=== PATIENT | male | born 1940 | race Caucasian/White ===

== ENCOUNTER → 2017-10-11 09:54 | Outpatient (CLI) | payer MEDICARE, SELFPAY ==
[2017-10-11 10:29] LABS: Abs Immature Grans 0.02 k/cumm (0.0-0.09); Absolute Basophil Count 0.04 k/cumm (0.0-0.2); Absolute Eosinophil Count 0.46 k/cumm (0.0-0.7); Absolute Lymphocyte Count 2.81 k/cumm (1.2-3.4); Absolute Monocyte Count 0.81 k/cumm (0.11-0.7); Absolute Neutrophil Count 4.56 k/cumm (1.2-6.7); Basophils % 0.5; Eosinophils % 5.3; HCT 38.7 % (40.0-50.0); HGB 12.8 g/dL (13.5-17.5); Immature Grans % 0.2; Lymphocytes % 32.3; Mean Corp. HGB Concentration 33.1 g/dL (32.0-36.0); Mean Corpuscular Hemoglobin 29.1 pg (27.0-33.0); Mean Platelet Volume 8.4 fL (8.0-11.0); Monocytes % 9.3; Neutrophils % 52.4; Platelet Count 331 x1000/uL (130-400); RBC Distribution Width 14.3 % (11.8-14.1)
[2017-10-11 11:54] LABS: Iron 92 ug/dL (50-175); Total Iron Binding Capacity 306 ug/dL (250-450); Transferrin Sat 30 % (20-55)
[2017-10-11 12:04] LABS: Ferritin 38 ng/mL (8-388)
== END ==
PROVIDERS: PCP Nurse Practitioner Family; Visit Provider Nurse Practitioner Family
DX: D50.9 Iron deficiency anemia, unspecified (principal)
CPT/HCPCS: 36415; 82728; 83540; 83550; 85025

== ENCOUNTER 2018-01-08 02:32 | Outpatient (CLI) | payer MEDICARE, SELFPAY ==
[2018-01-08 09:53] LABS: Abs Immature Grans 0.02 k/cumm (0.0-0.09); Absolute Basophil Count 0.03 k/cumm (0.0-0.2); Absolute Eosinophil Count 0.51 k/cumm (0.0-0.7); Absolute Lymphocyte Count 2.86 k/cumm (1.2-3.4); Absolute Neutrophil Count 3.71 k/cumm (1.2-6.7); Basophils % 0.4; Eosinophils % 6.3; HCT 37.4 % (40.0-50.0); HGB 12.5 g/dL (13.5-17.5); Immature Grans % 0.2; Lymphocytes % 35.2; Mean Corp. HGB Concentration 33.4 g/dL (32.0-36.0); Mean Corpuscular Hemoglobin 29.9 pg (27.0-33.0); Mean Corpuscular Volume 89.5 fL (80-95); Mean Platelet Volume 8.2 fL (8.0-11.0); Monocytes % 12.3; Neutrophils % 45.6; Platelet Count 335 x1000/uL (130-400); RBC 4.18 m/cumm (4.50-6.00); RBC Distribution Width 13.8 % (11.8-14.1); White Blood Cell Count 8.13 k/cumm (4.4-10.8)
== END 2018-01-08 02:52 ==
PROVIDERS: PCP Nurse Practitioner Family; Visit Provider Family Medicine
DX: D50.9 Iron deficiency anemia, unspecified (principal)
CPT/HCPCS: 36415; 85025

== ENCOUNTER 2019-01-02 10:35 | Outpatient (CLI) | payer MEDICARE, SELFPAY ==
[2019-01-02 11:23] LABS: Abs Immature Grans 0.01 k/cumm (0.0-0.09); Absolute Basophil Count 0.03 k/cumm (0.0-0.2); Absolute Eosinophil Count 0.37 k/cumm (0.0-0.7); Absolute Monocyte Count 0.88 k/cumm (0.11-0.7); Absolute Neutrophil Count 3.46 k/cumm (1.2-6.7); Basophils % 0.4; HCT 37.7 % (40.0-50.0); HGB 12.2 g/dL (13.5-17.5); Immature Grans % 0.1; Lymphocytes % 36.2; Mean Corp. HGB Concentration 32.4 g/dL (32.0-36.0); Mean Corpuscular Hemoglobin 29.6 pg (27.0-33.0); Mean Corpuscular Volume 91.5 fL (80-95); Mean Platelet Volume 8.6 fL (8.0-11.0); Monocytes % 11.8; Neutrophils % 46.5; Platelet Count 362 x1000/uL (130-400); RBC 4.12 m/cumm (4.50-6.00); RBC Distribution Width 12.3 % (11.8-14.1); White Blood Cell Count 7.45 k/cumm (4.4-10.8)
[2019-01-02 11:48] LABS: Anion Gap 10.2 mmol/L (3-11); BUN 25 mg/dL (7-18); CO2 26.8 mmol/L (21.0-32.0); CREATININE 1.36 mg/dL (0.70-1.30); Chloride 105 mmol/L (98-107); Estimated GFR 50.81 (mL/min/1.73m2); Glucose 95 mg/dL (70-100); Potassium 4.8 mmol/L (3.5-5.1); Sodium 142 mmol/L (136-145)
== END 2019-01-02 10:55 ==
PROVIDERS: PCP Nurse Practitioner Family; Visit Provider Nurse Practitioner Family
DX: I10 Essential (primary) hypertension (principal); D50.9 Iron deficiency anemia, unspecified; N18.9 Chronic kidney disease, unspecified
CPT/HCPCS: 36415; 80048; 85025

== ENCOUNTER 2019-02-04 09:15 | Outpatient (CLI) | payer MEDICARE, SELFPAY ==
[2019-02-04 10:38] LABS: Anion Gap 12.2 mmol/L (3-11); BUN 36 mg/dL (7-18); CO2 26.8 mmol/L (21.0-32.0); CREATININE 1.88 mg/dL (0.70-1.30); Calcium 9.5 mg/dL (8.5-10.1); Chloride 102 mmol/L (98-107); Estimated GFR 34.97 (mL/min/1.73m2); Glucose 110 mg/dL (74-106); Potassium 4.5 mmol/L (3.5-5.1); Sodium 141 mmol/L (136-145)
== END 2019-02-04 09:35 ==
PROVIDERS: PCP Nurse Practitioner Family; Visit Provider Nurse Practitioner Family
DX: I10 Essential (primary) hypertension (principal)
CPT/HCPCS: 36415; 80048

== ENCOUNTER 2019-07-08 00:55 | Outpatient (CLI) | payer MEDICARE, SELFPAY ==
[2019-07-08 08:49] LABS: BUN 26 mg/dL (7-18); CREATININE 1.54 mg/dL (0.70-1.30); Calcium 8.8 mg/dL (8.5-10.1); Chloride 102 mmol/L (98-107); Estimated GFR 44.02 (mL/min/1.73m2); Glucose 98 mg/dL (74-106); Potassium 4.5 mmol/L (3.5-5.1); Sodium 139 mmol/L (136-145)
== END 2019-07-08 01:15 ==
PROVIDERS: PCP Nurse Practitioner Family; Visit Provider Nurse Practitioner Family
DX: I10 Essential (primary) hypertension (principal); R79.9 Abnormal finding of blood chemistry, unspecified
CPT/HCPCS: 36415; 80048

== ENCOUNTER 2019-08-26 02:11 | Outpatient (CLI) | payer MEDICARE, SELFPAY ==
[2019-08-26 08:47] LABS: Anion Gap 7.8 mmol/L (3-11); BUN 26 mg/dL (7-18); CO2 29.2 mmol/L (21.0-32.0); CREATININE 1.56 mg/dL (0.70-1.30); Calcium 8.9 mg/dL (8.5-10.1); Chloride 103 mmol/L (98-107); Estimated GFR 43.37 (mL/min/1.73m2); Glucose 94 mg/dL (74-106); Potassium 4.9 mmol/L (3.5-5.1); Sodium 140 mmol/L (136-145)
== END 2019-08-26 02:31 ==
PROVIDERS: PCP Nurse Practitioner Family; Visit Provider Nurse Practitioner Family
DX: I10 Essential (primary) hypertension (principal)
CPT/HCPCS: 36415; 80048

== ENCOUNTER 2019-09-12 02:12 | Outpatient (CLI) | payer MEDICARE, SELFPAY ==
[2019-09-12 09:43] LABS: Anion Gap 8.8 mmol/L (3-11); BUN 23 mg/dL (7-18); CO2 30.2 mmol/L (21.0-32.0); CREATININE 1.49 mg/dL (0.70-1.30); Calcium 9.5 mg/dL (8.5-10.1); Chloride 101 mmol/L (98-107); Estimated GFR 45.73 (mL/min/1.73m2); Glucose 92 mg/dL (74-106); Potassium 4.4 mmol/L (3.5-5.1); Sodium 140 mmol/L (136-145)
== END 2019-09-12 02:32 ==
PROVIDERS: PCP Nurse Practitioner Family; Visit Provider Nurse Practitioner Family
DX: I10 Essential (primary) hypertension (principal)
CPT/HCPCS: 36415; 80048

== ENCOUNTER 2020-01-13 03:10 | Outpatient (CLI) | payer MEDICARE, SELFPAY ==
[2020-01-13 09:26] LABS: Abs Immature Grans 0.02 10^3/uL (0.0-0.06); Absolute Basophil Count 0.03 10^3/uL (0.0-0.2); Absolute Eosinophil Count 0.47 10^3/uL (0.0-0.7); Absolute Lymphocyte Count 2.26 10^3/uL (1.2-3.4); Absolute Monocyte Count 0.81 10^3/uL (0.1-0.8); Absolute Neutrophil Count 4.41 10^3/uL (1.2-6.7); Basophils % 0.4; Eosinophils % 5.9; HCT 37.5 % (40.0-50.0); HGB 12.3 g/dL (13.5-17.5); Immature Grans % 0.3; Lymphocytes % 28.3; MCHC 32.8 % (32.0-36.0); MCV 91.5 fL (80-95); MPV 8.7 fL (8.0-11.0); Monocytes % 10.1; Nucleated RBC 0 %; Platelet Count 337 10^3/uL (130-400); RDW 12.1 % (11.8-14.1); RDW-SD 40.4 fL
[2020-01-13 10:23] LABS: ALT 13 U/L (16-63); AST 21 U/L (15-37); Albumin 3.7 g/dL (3.4-5.0); Alkaline Phosphatase 86 U/L (46-116); Anion Gap 7.9 mmol/L (3-11); BUN 27 mg/dL (7-18); Bilirubin, Total 0.7 mg/dL (0.2-1.0); CO2 29.1 mmol/L (21.0-32.0); CREATININE 1.58 mg/dL (0.70-1.30); Calcium 8.7 mg/dL (8.5-10.1); Chloride 101 mmol/L (98-107); Estimated GFR 42.63 (mL/min/1.73m2); Glucose 103 mg/dL (74-106); Potassium 4.1 mmol/L (3.5-5.1); Sodium 138 mmol/L (136-145); Total Protein 7.9 g/dL (6.4-8.2)
== END 2020-01-13 03:30 ==
PROVIDERS: PCP Nurse Practitioner Family; Visit Provider Nurse Practitioner Family
DX: I12.9 Hypertensive chronic kidney disease with stage 1 through stage 4 chronic kidney disease, or unspecified chronic kidney disease (principal); N18.30 Chronic kidney disease, stage 3 unspecified; D50.9 Iron deficiency anemia, unspecified
CPT/HCPCS: 36415; 80053; 85025

== ENCOUNTER 2020-01-23 01:20 | Outpatient (CLI) | payer MEDICARE, SELFPAY ==
--- NOTE | 2020-01-23 06:45 | DI.US_ITS ---
EXAM: US AAA SCREENING CLINICAL HISTORY: Screening for AAA,Z13.6 COMPARISON: No exams were available for comparison FINDINGS: Abdominal Aorta: Proximal: 2.6 x 2.7 cm Mid: 2.3 x 2.5 cm Distal: 2.5 x 2.2 cm Iliac's: Right: 1.5 x 1.7 cm Left: 1.5 x 1.6 cm Mild atherosclerotic disease. IMPRESSION: No evidence of abdominal aortic aneurysm. DATA REPOSITORY:
== END 2020-01-23 01:40 ==
PROVIDERS: PCP Nurse Practitioner Family; Visit Provider Nurse Practitioner Family
DX: Z13.6 Encounter for screening for cardiovascular disorders (principal); I25.10 Atherosclerotic heart disease of native coronary artery without angina pectoris
CPT/HCPCS: 76706

== ENCOUNTER 2020-10-08 14:07 | Outpatient (CLI) | payer MEDICARE, SELFPAY ==
--- NOTE | 2020-10-08 10:30 | DI.RAD_ITS ---
Exam(s) XR KNEE LT 3V AP,LAT,FLETCHER EXAM: XR KNEE LT 3V AP,LAT,FLETCHER CLINICAL HISTORY: gradual worsening BL knee pain ?OA M25.562 PAIN LT KNEE G89.29 CHRONIC PAIN. TECHNIQUE: 2D digital imaging was performed. COMPARISON: CR XR KNEE RT 3V AP,LAT,FLETCHER from 10/08/2020 FINDINGS: There is no evidence of fracture. There is a joint effusion in the suprapatellar bursa. There are a dvanced tricompartmental osteoarthritic degenerative changes. There is [id number] apposition in th e medial and lateral compartments. Also severe degenerative changes in the patellofemoral compartmen t. Vascular calcification is noted.. IMPRESSION: Severe tricompartmental osteoarthritic degenerative changes. DATA REPOSITORY: RADIATION DOSE DELIVERED:
--- NOTE | 2020-10-08 10:30 | DI.RAD_ITS ---
Exam(s) XR KNEE RT 3V AP,LAT,FLETCHER EXAM: XR KNEE RT 3V AP,LAT,FLETCHER CLINICAL HISTORY: gradual worsening BL knee pain ?OA M25.561 PAIN RT KNEE G89.29 CHRONIC PAIN. TECHNIQUE: 2D digital imaging was performed. COMPARISON: No exams were available for comparison FINDINGS: There is no evidence of fracture although there is a joint effusion which is similar in size to the o pposite knee. There is also severe tricompartmental osteoarthritic degenerative change in the right knee. Bone-on- bone apposition and prominent osteophytes all 3 compartments. Vascular calcifications also noted on this side. IMPRESSION: Severe tricompartmental osteoarthritis. Joint effusion. DATA REPOSITORY: RADIATION DOSE DELIVERED:
== END 2020-10-08 14:27 ==
PROVIDERS: PCP Nurse Practitioner Family; Visit Provider Nurse Practitioner Family
DX: M17.0 Bilateral primary osteoarthritis of knee; M25.461 Effusion, right knee
CPT/HCPCS: 73562

== ENCOUNTER → 2020-11-27 09:06 | Outpatient (BNVA) | payer MEDICARE, SELFPAY | PROVIDERS: PCP Nurse Practitioner Family; Referring Provider Nurse Practitioner Family; Visit Provider Student in an Organized Health Care Education/Training Program | DX: M17.0 Bilateral primary osteoarthritis of knee (principal); M25.561 Pain in right knee; M25.562 Pain in left knee; G89.29 Other chronic pain | CPT/HCPCS: 99203 ==

== ENCOUNTER 2021-02-15 03:09 | Outpatient (CLI) | payer MEDICARE, SELFPAY ==
[2021-02-15 11:50] LABS: Abs Immature Grans 0.02 10^3/uL (0.0-0.06); Absolute Basophil Count 0.04 10^3/uL (0.0-0.2); Absolute Lymphocyte Count 2.33 10^3/uL (1.2-3.4); Absolute Monocyte Count 0.95 10^3/uL (0.1-0.8); Basophils % 0.5; Eosinophils % 6.5; HCT 37.3 % (40.0-50.0); Immature Grans % 0.3; Lymphocytes % 30.5; MCHC 32.2 % (32.0-36.0); MCV 90.1 fL (80-95); MPV 8.6 fL (8.0-11.0); Monocytes % 12.4; Neutrophils % 49.8; Nucleated RBC 0 %; Platelet Count 275 10^3/uL (130-400); RBC 4.14 10^6/uL (4.36-5.78); RDW 12.4 % (11.8-14.1); RDW-SD 41.1 fL; WBC 7.64 10^3/uL (4.4-10.8)
[2021-02-15 13:10] LABS: ALT 15 U/L (16-63); AST 21 U/L (15-37); Albumin 3.8 g/dL (3.4-5.0); Alkaline Phosphatase 100 U/L (46-116); Anion Gap 7.7 mmol/L (3-11); BUN 32 mg/dL (7-18); Bilirubin, Total 0.8 mg/dL (0.2-1.0); CO2 31.3 mmol/L (21.0-32.0); CREATININE 1.6 mg/dL (0.70-1.30); Calcium 8.8 mg/dL (8.5-10.1); Chloride 103 mmol/L (98-107); Glucose 90 mg/dL (74-106); Potassium 4.1 mmol/L (3.5-5.1); Sodium 142 mmol/L (136-145); Total Protein 8.1 g/dL (6.4-8.2)
== END 2021-02-15 03:10 | disposition home or self-care (01) ==
LOC: LBO 03:09
PROVIDERS: PCP Nurse Practitioner Family; Visit Provider Nurse Practitioner Family
DX: I10 Essential (primary) hypertension (principal); D50.9 Iron deficiency anemia, unspecified; N18.9 Chronic kidney disease, unspecified
CPT/HCPCS: 36415; 80053; 85025

== ENCOUNTER 2021-08-24 13:26 | Emergency (ER) | payer MEDICARE, SELFPAY ==
[2021-08-24 13:32] VITALS: BP 142/84; PULSE 93; RESP 17; TEMP 36.6; O2SAT 97
--- NOTE | 2021-08-24 13:57 | W.ED.GENAD ---
Discharge Plan Disposition Patient Disposition: HOME Condition: Stable Discharge Details Clinical Impression: Laceration Primary Care Provider: Perri Roca ED Provider: Rosalinda Mcmanus Home Meds and New Rx's Prescriptions: Continued acetaminophen [Tylenol Arthritis Pain] 650 mg tablet extended release 650 mg PO Q8H PRN (Reason: pain) lisinopril 40 mg tablet 40 mg PO DAILY Qty: 90 3RF furosemide 20 mg tablet 20 mg PO DAILY AM Qty: 90 3RF diclofenac sodium 1 % gel 2 g Topical QID PRN (Reason: pain) Qty: 100 3RF Rx Instructions: Apply a thin film (2 GM) to affected areas up to four times daily as needed for pain. multivitamin Tablet 1 tab PO DAILY Qty: 90 Rx Instructions: Takes during winter omeprazole 20 mg capsule,delayed release(DR/EC) 20 mg PO BID Qty: 180 3RF Rx Instructions: Take twice daily on an empty stomach at least 20-30 minutes before meals Discharge Instructions Instructions: Laceration (ED) Additional Instructions: Keep wounds clean and dry Trim Steri-Strips as they siobhan Discussed skin adhesive status underneath the Steri-Strips will likely dissolve on own Do not attempt to remove the Steri-Strip (moistened as you might open the wound Otherwise keep it clean and dry, you do not need to wash it with soap and water daily as it has been cleaned and the wound has been sealed Please return with spreading redness, fever, worsening pain, headache, vomiting Referrals: Perri Roca, [employer]AL[employer] ASSURANCE/R&D LAB TECHNICIAN [Primary Care Provider] - Discharge Data Discharge Date/Time-TO BE ENTERED AT DEPARTURE: 08/24/21 14:06 Medical Decision Making Patient appears well Steri-Strips and Dermabond were applied with good approximation No signs of significant head injury Ambulatory steady gait Return precautions discussed and patient expressed understanding Medical Records Medical records reviewed: Yes I reviewed the patient's medical records. Lab Data Lab results reviewed: Yes I reviewed the patient's lab results. ECG Data Prior ECG tracings: available for review HPI General Date/Time Provider Initiated Documentation: 08/24/21 13:27. HPI Narrative: This 80-year-old gentleman presents with laceration to left forehead which she acquired 30 minutes prior to arrival. He was repairing his garage when a piece of metal kicked back, hitting his head. Denies head injury or loss of consciousness. Denies any dizziness or weakness. Denies history of anticoagulation. Denies any vision change. Denies any additional pain complaints time. Unsure regarding tetanus. Related Data Home Medications Medication Instructions Recorded Confirmed multivitamin 1 tab PO DAILY ##90 09/16/19 08/24/21 diclofenac sodium 1 % topical gel 2 g topical QID PRN pain #100 grams 02/11/21 08/24/21 omeprazole 20 mg capsule,delayed 20 mg PO BID #180 tab-caps 22 08/24/21 release acetaminophen 650 mg 650 mg PO Q8H PRN pain 06/10/21 08/24/21 tablet,extended release (Tylenol Arthritis Pain) furosemide 20 mg tablet 20 mg PO DAILY AM #90 tab-caps 06/10/21 08/24/21 lisinopril 40 mg tablet 40 mg PO DAILY #90 tab-caps 06/10/21 08/24/21 Previous Rx's Medication Instructions Recorded diclofenac sodium 1 % topical gel 2 g topical QID PRN pain #100 grams 02/11/21 omeprazole 20 mg capsule,delayed 20 mg PO BID #180 tab-caps 04/30/21 release furosemide 20 mg tablet 20 mg PO DAILY AM #90 tab-caps 06/10/21 lisinopril 40 mg tablet 40 mg PO DAILY #90 tab-caps 06/10/21 Allergies Allergy/AdvReac Type Severity Reaction Status Date / Time peanut Allergy Intermediate sneezes Verified 08/24/21 13:36 hydrochlorothiazide AdvReac Intermediate Other (See Verified 08/24/21 13:36 Comment) General Stated Complaint: Laceration BERTRAND: 4 Review of Systems All systems reviewed & are unremarkable except as noted in HPI and below PFSH All Active Problems (Updated 08/24/21 @ 14:01 by MARISELA Jane) Laceration (Acute) Mild mitral valve regurgitation (Chronic ~2018) [place]26[place] [facility] [place] mild --> repeat 3-5 years (due: 2022 Osteoarthritis of left knee (Acute) Osteoarthritis of right knee (Acute) Hiatal hernia (Chronic) 05/08/2018 EGD HLD (hyperlipidemia) (Chronic) Unspecified essential hypertension (Chronic 06/27/12) PCEq risk 23%; goal 150/90 Pacemaker (Chronic 08/16/17) Syncope 07/2017 --> 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 Neuropathy (Chronic 08/24/12) R post soulder Iron deficiency anemia (Chronic 11/24/11) neg colonoscopy, EGD Lawler's; C Kourtney 2011; freq blood donations; chronic, nml Epo, likely 2/2 CKD Chronic kidney disease (Chronic 12/29/16) Candidate for statin therapy due to risk of future cardiovascular event (Chronic 01/05/17) 12/2016 labwork: 10-year ASCVD risk = ~33% --> pt declines statins Lawler's esophagus (Chronic ~2011) Most recent EGD 05/08/2018: no endoscopic evidence for Lawler's, consider repeat EGD in 2-3 years for surveillance; discussed with pt 07/2021 & he declines further surveillance EGDs Medical History (Updated 08/24/21 @ 14:01 by MARISELA Jane) Cervical radiculopathy (10/04/12) Syncope (03/28/11) Initially 2011 with negative workup; recurrent 07/2017 and found to have 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 Social History Smoking/Tobacco Use Status: Former Tobacco Use Quit Date: 03/13/1968 Tobacco: How many years used: 2 Smoking risk assessment performed?: Yes Alcohol Intake: former Drug use: Never Substance use type: does not use Adopted: No Caregiver/Support person: No Foster care: No Housing: house Number of Children: 1 Communication Needs: None Education Level: college current occupation: Retired Pets and animals: Yes Pets and animals: cat(s) Sexually active: No Do you think of yourself as: straight/heterosexual Current gender identity: male Other: What is your relationship status?: How often do you talk on the phone with friends or family?: three or more times per week How often do you get together with friends or relatives?: three or more times per week Do you belong to any clubs or organized social groups?: yes Panel score (0-1 are the most socially isolated patients): 2 What type of physical activity do you participate in: walking Duration: 30-45 minutes/day Frequency: 3-4 times per week Edna/Episcopalian: Congregation Special edna needs: No Seatbelt use: always Helmet use: No Drive intox or ride w/intox driver helper: No Water heater temp set <120 deg: Yes Working smoke detector in home: Yes Fire extinguisher in home: Yes Carbon monox detector in home: Yes Firearms in home: Yes Do you feel safe at home: Yes Do you feel safe in your relationship?: Yes Exam Const General: cooperative, comfortable and no acute distress [facility] Head images: 1. 1.5 inch laceration noted No hematoma Eyes Pupils: PERRL Neck Other: no midline tenderness Resp Effort & Inspection: normal respiratory effort Cardio Rate: regular rate Skin Other: laceration Neuro General: patient alert and patient oriented x3 Other: [id number] Course Vital Signs Vital signs: Vital Signs Temperature 36.6 C 08/24/21 13:32 Pulse 93 H 08/24/21 13:32 Respiratory Rate 17 08/24/21 13:32 Blood Pressure 142/84 H 08/24/21 13:32 Pulse Oximetry 97 08/24/21 13:32 Temperature 36.6 C 08/24/21 13:32 Temperature Source Temporal Artery Scan 08/24/21 13:32 Pulse 93 H 08/24/21 13:32 Respiratory Rate 17 08/24/21 13:32 Respiratory Effort Non-Labored 08/24/21 13:34 Blood Pressure 142/84 H 08/24/21 13:32 Blood Pressure Position Sitting 08/24/21 13:32 Pulse Oximetry 97 08/24/21 13:32 Oxygen Delivery Method Room Air 08/24/21 13:32 Oxygen Flow Rate 0 08/24/21 13:32 Pain Level 0 08/24/21 13:34
== END 2021-08-24 14:06 | disposition home or self-care (01) ==
PROVIDERS: Emergency Provider Physician Assistant; PCP Nurse Practitioner Family
DX: S01.81XA Laceration without foreign body of other part of head, initial encounter (principal); W22.8XXA Striking against or struck by other objects, initial encounter
CPT/HCPCS: 90471; 99284; 99283

== ENCOUNTER → 2021-10-15 00:44 | Outpatient (CLI) | payer MEDICARE, SELFPAY ==
--- NOTE | 2021-10-15 09:10 | DI.RAD_ITS ---
Exam(s) XR LUMBAR SPINE COMPLETE EXAM: XR LUMBAR SPINE COMPLETE CLINICAL HISTORY: 8 months of low uncomplicated low back pain,M54.50. TECHNIQUE: 2D digital imaging was performed of the lumbar spine. Five images were obtained. AP, la teral, right oblique, left oblique and L5-S1 spot views were obtained. COMPARISON: CR ABDOMEN FLAT PLATE from 10/29/2009 FINDINGS: BONES: No fracture or destructive lesion. Endplate osteophytes are seen from L2-3 through L5-S1. Dege nerative changes of the facets are seen at L4-5 and L5-S1. DISKS: There is disc space narrowing at all levels of the lumbar spine. Vacuum discs are seen at L3- 4, L4-5 and L5-S1. ALIGNMENT: There is a stable curvature of the lumbar spine. No spondylolysis or spondylolisthesis. SOFT TISSUE: Atherosclerosis is present. IMPRESSION: Moderately severe degenerative changes in the spine. DATA REPOSITORY: RADIATION DOSE DELIVERED:
== END ==
PROVIDERS: PCP Nurse Practitioner Family; Visit Provider Family Medicine
DX: M54.50 Low back pain, unspecified (principal); M47.816 Spondylosis without myelopathy or radiculopathy, lumbar region; M47.817 Spondylosis without myelopathy or radiculopathy, lumbosacral region
CPT/HCPCS: 72110

== ENCOUNTER → 2021-10-25 01:03 | Outpatient (CLI) | payer MEDICARE, SELFPAY ==
--- NOTE | 2021-10-25 06:45 | DI.CT_ITS ---
Exam(s) CT LUMBAR SPINE WO EXAM: CT LUMBAR SPINE WO CLINICAL HISTORY: Low back pain/ stiffness.m54.50. TECHNIQUE: Imaging Protocol: Axial computed tomography images with coronal and sagittal reformatted images were created and reviewed COMPARISON: CR CHEST 2 VIEWS PA,LAT from 07/22/2008 CR XR LUMBAR SPINE COMPLETE from 10/15/2021 FINDINGS: Bones: There are no fractures, listhesis, nor pars defects. Multilevel disc space narrowing chronic- type and degenerative scoliosis convex left. INDIVIDUAL LEVELS: T12-L1:No disc herniation nor canal stenosis. Facet joints unremarkable. No foraminal stenosis. L1-2: Elimination of the disc space on the left side with partial fusion of L1 and L2 vertebral frances s left of center. Also moderate-severe disc space narrowing on the right side of this disc space. N o disc herniation. There is moderate central spinal canal stenosis. Mild foraminal stenosis on the left side. Mild foraminal stenosis on the right side also evident. Mild degenerative changes in the facet joints. L2-3: Advanced disc space narrowing with vacuum phenomena seen throughout the diminished disc space at this level. Broad annular bulging. There is severe central canal stenosis at this level due to c ombination short AP dimensions the pedicles, broad annular bulging, and moderate degenerative changes in both facet joints. L3-4: Advanced disc space narrowing also evident at this level vacuum phenomenon. Broad annular bul ging. Severe central spinal canal stenosis evident this level due to annular bulging, short AP dimen sions the pedicles and degenerative facet joint changes, right more so than left. Moderate degenerat rani narrowing of exiting neural foramina bilaterally. L4-5: Advanced disc space narrowing also evident at this level with vacuum phenomenon throughout the disc space. Severe spinal canal stenosis evident due to annular bulging, short AP dimensions the pe dicles and degenerative facet joint arthropathy. There is significant foraminal stenosis bilaterally at this level, mostly related to the height loss of the disc space and facet arthropathy L5-S1: Advanced disc space narrowing and vacuum phenomenon. Also severe spinal canal stenosis at th is level for similar reasons as is spaces above. Also significant bilateral foraminal stenosis mostl y related to posterior bony ridging and vertical height loss with impingement of the exiting nerve ro ots subjacent to the overlying L5 pedicles. The visualized sacroiliac joints and sacrum appear unremarkable. PARASPINAL SOFT TISSUES: Sigmoid diverticuli noted. IMPRESSION: 1. Severe advanced multilevel disc height loss. 2. Multilevel severe central spinal canal stenosis at each level in the lumbosacral spine. There is also multilevel bilateral foraminal stenosis. 3. Multilevel facet arthropathy. RADIATION DOSE DELIVERED: 583.84mGy.cm Total DLP DATA REPOSITORY: All CT scans at this facility are submitted to the National Radiology Data Registry (NRDR) Dose Index Registry (DIR) with the [employer] (ACR). RADIATION OPTIMIZATION: All CT scans at this facility use at least one of these dose optimization te chniques: automated exposure control; mA and/or kV adjustment per patient size (includes targeted exa ms where dose is matched to clinical indication); or iterative reconstruction.
== END ==
PROVIDERS: PCP Nurse Practitioner Family; Visit Provider Family Medicine
DX: M47.816 Spondylosis without myelopathy or radiculopathy, lumbar region (principal); M47.817 Spondylosis without myelopathy or radiculopathy, lumbosacral region
CPT/HCPCS: 72131

== ENCOUNTER 2022-01-13 07:42 | Outpatient (CLI) | payer MEDICARE, SELFPAY ==
[2022-01-13 07:53] VITALS: BP 120/70; PULSE 80; RESP 20; TEMP 36.6; O2SAT 97
--- NOTE | 2022-01-13 08:36 | DI.RAD_ITS ---
Exam(s) XR PAIN CLINIC LUMBAR SP 2V EXAM: XR PAIN CLINIC LUMBAR SP 2V CLINICAL HISTORY: DX: lumbar radiculopathy TECHNIQUE: 2D and realtime digital imaging was performed. COMPARISON: No exams were available for comparison FINDINGS: C-arm fluoroscopy was utilized by Dr. Pelletier. Please see the procedure note. Hard copy shows epidural injection at what appears to be the L5-S1 level. IMPRESSION: RADIATION DOSE DELIVERED: fortunato Waters=12.12 mGy
--- NOTE | 2022-01-13 08:37 | PDOC.PAIN_ITS ---
Date of service: 01/13/22 Time of Service: 08:37 Pain Clinic Procedure Note Procedure Note Procedure Note: Lumbar Epidural Steroid Injection Procedure Note COMMENTS:I previously evaluated him in the office. Pre-procedure pain VAS was 6/10. Dx: Lumbosacral radiculopathy Partha Mantilla has been referred to the [facility] for lumbar epidural steroid injection. The patient was greeted by the nurse who verified patients name and . Patient was then taken to the fluoroscopy suite. The patient was interviewed and the medial record reviewed. There were no medical, pharmacologic, radiographic, or other structural contraindications to attempting fluoroscopically guided lumbar epidural steroid injection. Risks and expected side effects as well as potential benefits of the procedure were reviewed and voiced concerns expressed. The patient consent form was signed and witnessed. Standard patient time-out procedure was performed. The patient was placed in the prone position on the fluoroscopy table and automa grant blood pressure cuff and pulse oximeter applied. The skin entry point for entering/approaching the epidural space by a L5-S1 and marked. Following thorough chlorhexadine preparation of the skin and draping and 1% lidocaine infiltration of the skin entry point and subcutaneous tissues, a 18 gauge Touhy needle was placed under fluoroscopic guidance and with loss of resistance technique into the epidural space. Needle tip placement and depth were aided and confirmed by fluoroscopy. There was no paresthesia or return of blood or CSF through the needle. 1 cc's of Omnipaque 240 was injected with clear epidural spread confirmed with fluoroscopy. 80mg depomedrol was injected. There was not any unusual discomfort expressed by Partha Mantilla. Patient's vital signs were stable throughout the procedure and were as recorded in nursing records. Follow up plans and appointments were discussed with patient. Post procedure instruction was given as documented in nursing records and having met discharge criteria and was discharged from the [facility]. COMMENTS: If this procedure is helpful, it can be completed up to 3 times per 12 months. If this procedure is completed again, I would encourage utilizing the Caudal approach as his interlaminar spaces are very tight. Post-procedure pain VAS 3/10. Sanya Pelletier DO, MPH [facility]
[2022-01-13] MEDS: methylPREDNISolone ACETATE 80 MG/ML VIAL IJ (08:38)
[2022-01-13] MEDS: Omnipaque 240 MG/ML 50 ML BTL IJ (08:38)
[2022-01-13 08:48] VITALS: BP 122/71; PULSE 81; RESP 17; O2SAT 98
== END 2022-01-13 07:43 | disposition home or self-care (01) ==
PROVIDERS: PCP Nurse Practitioner Family; Visit Provider Preventive Medicine Occupational Medicine
DX: M54.17 Radiculopathy, lumbosacral region (principal); M54.50 Low back pain, unspecified
CPT/HCPCS: 62323; 72100; J1040; Q9967

== ENCOUNTER 2022-01-28 01:23 | Outpatient (CLI) | payer MEDICARE, SELFPAY ==
[2022-01-28 09:12] LABS: Abs Immature Grans 0.03 10^3/uL (0.0-0.06); Absolute Basophil Count 0.04 10^3/uL (0.0-0.2); Absolute Lymphocyte Count 2.38 10^3/uL (1.2-3.4); Absolute Monocyte Count 1.01 10^3/uL (0.1-0.8); Absolute Neutrophil Count 4.28 10^3/uL (1.2-6.7); Basophils % 0.5; Eosinophils % 2.5; HCT 37.1 % (40.0-50.0); HGB 11.9 g/dL (13.5-17.5); Immature Grans % 0.4; MCH 28.6 pg (27.0-33.0); MCHC 32.1 % (32.0-36.0); MCV 89 fL (80-95); MPV 8.3 fL (8.0-11.0); Monocytes % 12.7; Neutrophils % 53.9; Platelet Count 286 10^3/uL (130-400); RBC 4.16 10^6/uL (4.36-5.78); RDW-SD 42.8 fL; WBC 7.94 10^3/uL (4.4-10.8)
[2022-01-28 09:47] LABS: ALT 12 U/L (16-63); AST 17 U/L (15-37); Alkaline Phosphatase 96 U/L (46-116); Anion Gap 7.8 mmol/L (3-11); BUN 69 mg/dL (7-18); CO2 29.2 mmol/L (21.0-32.0); CREATININE 2.8 mg/dL (0.70-1.30); Calcium 9.6 mg/dL (8.5-10.1); Chloride 99 mmol/L (98-107); Estimated GFR 22.12 (mL/min/1.73m2); Glucose 105 mg/dL (74-106); Potassium 5.4 mmol/L (3.5-5.1); Sodium 136 mmol/L (136-145); Total Protein 8.6 g/dL (6.4-8.2)
== END 2022-01-28 01:24 | disposition home or self-care (01) ==
LOC: LBO 01:23
PROVIDERS: PCP Nurse Practitioner Family; Visit Provider Nurse Practitioner Family
DX: D50.9 Iron deficiency anemia, unspecified (principal); N18.30 Chronic kidney disease, stage 3 unspecified; Z13.1 Encounter for screening for diabetes mellitus
CPT/HCPCS: 36415; 80053; 85025

== ENCOUNTER 2022-02-02 09:06 | Outpatient (CLI) | payer MEDICARE, SELFPAY ==
[2022-02-02 08:56] LABS: Abs Immature Grans 0.02 10^3/uL (0.0-0.06); Absolute Basophil Count 0.03 10^3/uL (0.0-0.2); Absolute Eosinophil Count 0.24 10^3/uL (0.0-0.7); Absolute Lymphocyte Count 2.16 10^3/uL (1.2-3.4); Absolute Monocyte Count 0.91 10^3/uL (0.1-0.8); Absolute Neutrophil Count 4.97 10^3/uL (1.2-6.7); Basophils % 0.4; Eosinophils % 2.9; HCT 36.3 % (40.0-50.0); Immature Grans % 0.2; Lymphocytes % 25.9; MCH 29.1 pg (27.0-33.0); MCHC 33.1 % (32.0-36.0); MCV 88 fL (80-95); MPV 8.2 fL (8.0-11.0); Monocytes % 10.9; Neutrophils % 59.7; Platelet Count 262 10^3/uL (130-400); RBC 4.12 10^6/uL (4.36-5.78); RDW 13.1 % (11.8-14.1); RDW-SD 42.5 fL; WBC 8.33 10^3/uL (4.4-10.8)
[2022-02-02 09:14] LABS: ALT 12 U/L (16-63); AST 15 U/L (15-37); Alkaline Phosphatase 94 U/L (46-116); Anion Gap 8.1 mmol/L (3-11); Bilirubin, Total 0.9 mg/dL (0.2-1.0); CO2 26.9 mmol/L (21.0-32.0); CREATININE 3.4 mg/dL (0.70-1.30); Calcium 9.4 mg/dL (8.5-10.1); Chloride 98 mmol/L (98-107); Estimated GFR 17.52 (mL/min/1.73m2); Glucose 90 mg/dL (74-106); Potassium 5.9 mmol/L (3.5-5.1); Sodium 133 mmol/L (136-145); Total Protein 8.6 g/dL (6.4-8.2)
[2022-02-02 09:18] LABS: BUN 101 mg/dL (7-18)
[2022-02-02 09:54] LABS: Bilirubin Negative (Negative); Blood Negative (Negative); Clarity Sl Cloudy (Clear); Glucose Negative (Negative); Ketones Negative (Negative); Leukocyte Esterase Large (Negative); Nitrite Negative (Negative); Urobilinogen 0.2 EU/dL (Up TO 0.2)
[2022-02-02 10:09] LABS: WBC >50 HPF (0-5)
[2022-02-02 10:10] LABS: Bacteria Moderate HPF (Negative); C & S Indicated? Yes
== END 2022-02-02 09:07 | disposition home or self-care (01) ==
LOC: LBO 09:07
PROVIDERS: PCP Nurse Practitioner Family; Visit Provider Nurse Practitioner Family
DX: E87.5 Hyperkalemia (principal); N18.32 Chronic kidney disease, stage 3b; R82.998 Other abnormal findings in urine
CPT/HCPCS: 36415; 80053; 87077; 81003; 81015; 85025; 87086; 87186

== ENCOUNTER 2022-02-02 12:07 | Emergency (ER) | payer MEDICARE, SELFPAY ==
[2022-02-02 12:22] VITALS: BP 110/61; PULSE 98; RESP 16; TEMP 36.9; O2SAT 94
--- NOTE | 2022-02-02 12:30 | RT.EKG_ITS ---
APPROVED REPORT Exam: Resting ECG Reason for Exam: hyperkalemia Patient Location: E HR:75 bpm ECG Measurements Heart Rate 75 AXIS NH 155 P 39 QRSd 83 QRS 48 QT 333 T 29 QTc 371 Conclusion Sinus rhythm...normal P axis, V-rate 60- 99 sinus rhtythm, normal axis, normal intervals, non ischemic
[2022-02-02 13:34] LABS: Abs Immature Grans 0.03 10^3/uL (0.0-0.06); Absolute Basophil Count 0.03 10^3/uL (0.0-0.2); Absolute Eosinophil Count 0.19 10^3/uL (0.0-0.7); Absolute Lymphocyte Count 2.33 10^3/uL (1.2-3.4); Absolute Monocyte Count 0.85 10^3/uL (0.1-0.8); Absolute Neutrophil Count 6.52 10^3/uL (1.2-6.7); Basophils % 0.3; Eosinophils % 1.9; HCT 36.5 % (40.0-50.0); HGB 12.1 g/dL (13.5-17.5); Immature Grans % 0.3; Lymphocytes % 23.4; MCH 29.2 pg (27.0-33.0); MCHC 33.2 % (32.0-36.0); MCV 88 fL (80-95); MPV 8.7 fL (8.0-11.0); Monocytes % 8.5; Neutrophils % 65.6; Platelet Count 282 10^3/uL (130-400); RBC 4.15 10^6/uL (4.36-5.78); RDW 13.1 % (11.8-14.1); RDW-SD 42.5 fL; WBC 9.95 10^3/uL (4.4-10.8)
[2022-02-02 13:48] LABS: ALT 13 U/L (16-63); AST 17 U/L (15-37); Albumin 4.2 g/dL (3.4-5.0); Alkaline Phosphatase 100 U/L (46-116); CREATININE 3.4 mg/dL (0.70-1.30); Calcium 9.5 mg/dL (8.5-10.1); Chloride 98 mmol/L (98-107); Estimated GFR 17.52 (mL/min/1.73m2); Glucose 99 mg/dL (74-106); Potassium 5.6 mmol/L (3.5-5.1); Sodium 130 mmol/L (136-145); Total Protein 9.2 g/dL (6.4-8.2)
[2022-02-02 13:51] LABS: BUN 99 mg/dL (7-18)
--- NOTE | 2022-02-02 14:08 | W.ED.GENAD ---
Discharge Plan Disposition Patient Disposition: Home Condition: Stable Discharge Details Chief Complaint: GenMedical Clinical Impression: Hyperkalemia, CKD (chronic kidney disease) Primary Care Provider: Perri Roca ED Provider: Rell Bennett Home Meds and New Rx's Prescriptions: No Action acetaminophen [Tylenol Arthritis Pain] 650 mg tablet extended release 650 mg PO Q8H PRN (Reason: pain) lisinopril 40 mg tablet 40 mg PO DAILY Qty: 90 3RF Hold Instructions: Home Medication placed on hold at Doctor's office furosemide 20 mg tablet 20 mg PO DAILY AM Qty: 90 3RF diclofenac sodium 1 % gel 2 g Topical QID PRN (Reason: pain) Qty: 100 3RF Rx Instructions: Apply a thin film (2 GM) to affected areas up to four times daily as needed for pain. multivitamin Tablet 1 tab PO DAILY Qty: 90 Rx Instructions: Takes during winter omeprazole 20 mg capsule,delayed release(DR/EC) 20 mg PO BID Qty: 180 3RF Rx Instructions: Take twice daily on an empty stomach at least 20-30 minutes before meals Discharge Instructions Instructions: Chronic Kidney Disease (ED), Chronic Kidney Disease Diet (DC), Hyperkalemia (ED) Additional Instructions: Please follow-up with nephrology and primary care. Please return to the emergency department for any abnormal symptoms. Medical Decision Making 81-year-old male referred in by primary care for evaluation of hyperkalemia in the setting of worsening CKD. Longstanding CKD has been followed by primary team. Patient found to be hyperkalemic to 5.9 today. EKG normal sinus rhythm normal intervals normal P waves and T waves, no evidence of fluid overload no chest pain or shortness of breath. No presyncope nausea or systemic signs of illness. Repeat labs showing potassium downtrending from 5.9-5.6 likely chronically compensating. Given hemodynamically stable asymptomatic patient without evidence of fluid overload state no indication for dialysis or medical treatment at this time. However patient will be urgently referred to nephrology for close follow-up, given strict return precautions for any abnormal symptomatology. Patient and family comfortable with plan. Sign Out No HPI General Date/Time Provider Initiated Documentation: 02/02/22 12:39. HPI Narrative: 81-year-old male history of CKD referred in by primary care for evaluation of hyperkalemia in the setting of worsening kidney function. Patient denies chest pain shortness of breath peripheral edema or decreased urine output. Related Data Home Medications Medication Instructions Recorded Confirmed multivitamin 1 tab PO DAILY ##90 09/16/19 02/02/22 diclofenac sodium 1 % topical gel 2 g topical QID PRN pain #100 grams 02/11/21 02/02/22 omeprazole 20 mg capsule,delayed 20 mg PO BID #180 tab-caps 04/30/21 02/02/22 release acetaminophen 650 mg 650 mg PO Q8H PRN pain 06/10/21 02/02/22 tablet,extended release (Tylenol Arthritis Pain) furosemide 20 mg tablet 20 mg PO DAILY AM #90 tab-caps 06/10/21 02/02/22 lisinopril 40 mg tablet 40 mg PO DAILY #90 tab-caps 06/10/21 01/13/22 Previous Rx's Medication Instructions Recorded diclofenac sodium 1 % topical gel 2 g topical QID PRN pain #100 grams 02/11/21 omeprazole 20 mg capsule,delayed 20 mg PO BID #180 tab-caps 04/30/21 release furosemide 20 mg tablet 20 mg PO DAILY AM #90 tab-caps 06/10/21 lisinopril 40 mg tablet 40 mg PO DAILY #90 tab-caps 06/10/21 Allergies Allergy/AdvReac Type Severity Reaction Status Date / Time peanut Allergy Intermediate sneezes Verified 01/13/22 07:49 hydrochlorothiazide AdvReac Intermediate Other (See Verified 01/13/22 07:49 Comment) General Stated Complaint: GenMedical BERTRAND: 3 Review of Systems Narrative: Review of Systems Constitutional: negative Eyes: negative ENT: negative Cardiovascular: negative Respiratory: negative Gastrointestinal: negative : negative Musculoskeletal: negative Skin: negative Neurologic: negative Psych: negative PFSH All Active Problems (Updated 02/02/22 @ 14:13 by Rell Bennett MD) Hyperkalemia (Acute) CKD (chronic kidney disease) (Chronic) Hyperkalemia (Acute) Degenerative disc disease, lumbar (Acute) Low back pain (Acute) Mild mitral valve regurgitation (Chronic ~2018) 07/26/2017 [facility] echo: mild --> repeat 3-5 years (due: 2022 Osteoarthritis of left knee (Acute) Osteoarthritis of right knee (Acute) Hiatal hernia (Chronic) 05/08/2018 EGD HLD (hyperlipidemia) (Chronic) Unspecified essential hypertension (Chronic 06/27/12) PCEq risk 23%; goal 150/90 Pacemaker (Chronic 08/16/17) Syncope 07/2017 --> 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 Neuropathy (Chronic 08/24/12) R post soulder Iron deficiency anemia (Chronic 11/24/11) neg colonoscopy, EGD Lawler's; C Kourtney 2011; freq blood donations; chronic, nml Epo, likely 2/2 CKD Chronic kidney disease (Chronic 12/29/16) Candidate for statin therapy due to risk of future cardiovascular event (Chronic 01/05/17) 12/2016 labwork: 10-year ASCVD risk = ~33% --> pt declines statins Lawler's esophagus (Chronic ~2011) Most recent EGD 05/08/2018: no endoscopic evidence for Lawler's, consider repeat EGD in 2-3 years for surveillance; discussed with pt 07/2021 & he declines further surveillance EGDs Medical History Cervical radiculopathy (10/04/12) Syncope (03/28/11) Initially 2011 with negative workup; recurrent 07/2017 and found to have sinus pause --> PPM placed 07/26/2017 Surgical History Endoscopy (05/08/14) Upper GI Dr Graham-[facility] 11/10/15 EGD W/ bx Pacemaker (07/26/17) [facility] Family History Mother Parkinson disease Father Myocardial infarction Heart disease Sister Stroke Cancer Stomach or pancreatic? Social History Smoking/Tobacco Use Status: Former Tobacco Use Quit Date: 03/13/1968 Tobacco: How many years used: 2 Smoking risk assessment performed?: Yes Alcohol Intake: former Drug use: Never Substance use type: does not use Adopted: No Caregiver/Support person: No Foster care: No Housing: house Number of Children: 1 Communication Needs: None Education Level: college current occupation: Retired Pets and animals: Yes Pets and animals: cat(s) Sexually active: No Do you think of yourself as: straight/heterosexual Current gender identity: male Other: What is your relationship status?: How often do you talk on the phone with friends or family?: three or more times per week How often do you get together with friends or relatives?: three or more times per week Do you belong to any clubs or organized social groups?: yes Panel score (0-1 are the most socially isolated patients): 2 What type of physical activity do you participate in: walking Duration: 30-45 minutes/day Frequency: 3-4 times per week Edna/Gnosticism: Episcopalian Special edna needs: No Seatbelt use: always Helmet use: No Drive intox or ride w/intox 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 Exam Narrative Exam Narrative: Physical Examination General: alert, awake, cooperative, resting comfortably, no acute distress HEENT: normocephalic, atraumatic; PERRL, EOM intact, conjunctiva normal; no nasal discharge; moist mucous membranes, oral and pharyngeal mucosa normal, tolerating secretions Neck: supple, trachea midline; full ROM Chest: normal to inspection Respiratory: normal respiratory effort, speaking in full sentences, clear to auscultation, no wheezing, rales or rhonchi Cardiac: regular rate, regular rhythm, S1S2 intact, no murmurs rubs or gallops GI: abdomen soft, non-tender, non-distended; no palpable mass or hepatosplenomegaly Skin: no lesions, rashes or trauma appreciated Neuro: AAOx3, normal speech, moving all extremities Extremities: No significant peripheral edema, patient endorses that he has chronic right lower extremity mild edema for the last 20 years Psych: Appropriate mood and affect Course Vital Signs Vital signs: Vital Signs Temperature 36.9 C 02/02/22 12:22 Pulse 98 H 02/02/22 12:22 Respiratory Rate 16 02/02/22 12:22 Blood Pressure 110/61 02/02/22 12:22 Pulse Oximetry 94 02/02/22 12:22 Temperature 36.9 C 02/02/22 12:22 Temperature Source Temporal Artery Scan 02/02/22 12:22 Pulse 98 H 02/02/22 12:22 Respiratory Rate 16 02/02/22 12:22 Respiratory Effort Non-Labored 02/02/22 12:58 Respiratory Depth Normal 02/02/22 12:58 Respiratory Pattern Normal 02/02/22 12:58 Blood Pressure 110/61 02/02/22 12:22 Blood Pressure Position Sitting 02/02/22 12:22 Pulse Oximetry 94 02/02/22 12:22 Oxygen Delivery Method Room Air 02/02/22 12:22 Oxygen Flow Rate 0 02/02/22 12:22 Pain Level 0 02/02/22 12:22 Lab/Test Results Lab/Test Results: Laboratory Tests Range/Units 02/02/22 02/02/22 13:25 13:25 WBC (4.4-10.8) 10^3/uL 9.95 RBC (4.36-5.78) 10^6/uL 4.15 L Hgb (13.5-17.5) g/dL 12.1 L Hct (40.0-50.0) % 36.5 L MCV (80-95) fL 88 MCH (27.0-33.0) pg 29.2 MCHC (32.0-36.0) % 33.2 RDW (11.8-14.1) % 13.1 Plt Count (130-400) 10^3/uL 282 MPV (8.0-11.0) fL 8.7 Immature Gran % 0.3 Neutrophils % 65.6 Lymphocytes % 23.4 Monocytes % 8.5 Eosinophils % 1.9 Basophils % 0.3 Nucleated RBC % (0.0-0.3) % 0.0 Absolute Neutrophils (1.2-6.7) 10^3/uL 6.52 Absolute Lymphocytes (1.2-3.4) 10^3/uL 2.33 Absolute Monocytes (0.1-0.8) 10^3/uL 0.85 H Absolute Eosinophils (0.0-0.7) 10^3/uL 0.19 Absolute Basophils (0.0-0.2) 10^3/uL 0.03 Sodium (136-145) mmol/L 130 L Potassium (3.5-5.1) mmol/L 5.6 H Chloride (98-107) mmol/L 98 Carbon Dioxide (21.0-32.0) mmol/L 25.0 Anion Gap (3-11) mmol/L 7.0 BUN (7-18) mg/dL 99 H* Creatinine (0.70-1.30) mg/dL 3.4 H Est GFR (CKD-EPI 2020) (mL/min/1.73m2) 17.52 Glucose (74-106) mg/dL 99 Calcium (8.5-10.1) mg/dL 9.5 Total Bilirubin (0.2-1.0) mg/dL 1.0 AST (15-37) U/L 17 ALT (16-63) U/L 13 L Alkaline Phosphatase (46-116) U/L 100 Total Protein (6.4-8.2) g/dL 9.2 H Albumin (3.4-5.0) g/dL 4.2
[2022-02-02 14:29] VITALS: BP 112/60; PULSE 80; RESP 16; TEMP 36.7; O2SAT 98
--- NOTE | 2022-02-03 09:26 | NUR.NOTE ---
Nursing Note: REFERRAL TO FOR [facility] [place]
== END 2022-02-02 14:33 | disposition home or self-care (01) ==
PROVIDERS: Emergency Provider Emergency Medicine; PCP Nurse Practitioner Family
DX: E87.5 Hyperkalemia (principal); N18.9 Chronic kidney disease, unspecified
CPT/HCPCS: 36415; 80053; 87077; 93005; 99283; 81003; 81015; 85025; 87086; 87186; 93010

== ENCOUNTER 2022-02-18 09:37 | Outpatient (REF) | payer MEDICARE, SELFPAY | END 2022-02-18 09:38 | disposition home or self-care (01) | LOC: LBN 09:37 | PROVIDERS: PCP Nurse Practitioner Family; Visit Provider Nurse Practitioner Family | DX: N39.0 Urinary tract infection, site not specified (principal) | CPT/HCPCS: 87077; 87086; 87186 ==

== ENCOUNTER 2022-02-18 12:01 | Outpatient (CLI) | payer MEDICARE, SELFPAY ==
[2022-02-18 10:03] LABS: Anion Gap 10.7 mmol/L (3-11); BUN 63 mg/dL (7-18); CO2 26.3 mmol/L (21.0-32.0); CREATININE 2.7 mg/dL (0.70-1.30); Calcium 9.1 mg/dL (8.5-10.1); Chloride 102 mmol/L (98-107); Glucose 107 mg/dL (74-106); Potassium 4.4 mmol/L (3.5-5.1); Sodium 139 mmol/L (136-145)
== END 2022-02-18 12:02 | disposition home or self-care (01) ==
LOC: LBO 12:02
PROVIDERS: PCP Nurse Practitioner Family; Visit Provider Nurse Practitioner Family
DX: R32 Unspecified urinary incontinence (principal); R82.71 Bacteriuria; E87.5 Hyperkalemia; N17.9 Acute kidney failure, unspecified
CPT/HCPCS: 36415; 80048; 84153

== ENCOUNTER 2022-02-25 12:10 | Outpatient (REF) | payer MEDICARE, SELFPAY ==
[2022-02-25 14:57] LABS: Anion Gap 8.6 mmol/L (3-11); BUN 38 mg/dL (7-18); CO2 28.4 mmol/L (21.0-32.0); CREATININE 2.1 mg/dL (0.70-1.30); Calcium 9.4 mg/dL (8.5-10.1); Chloride 101 mmol/L (98-107); Estimated GFR 31.23 (mL/min/1.73m2); Glucose 105 mg/dL (74-106); Potassium 4.7 mmol/L (3.5-5.1); Sodium 138 mmol/L (136-145)
== END 2022-02-25 12:11 | disposition home or self-care (01) ==
LOC: LBN 12:10
PROVIDERS: PCP Nurse Practitioner Family; Visit Provider Nurse Practitioner Family
DX: N18.9 Chronic kidney disease, unspecified (principal); N17.9 Acute kidney failure, unspecified; N39.0 Urinary tract infection, site not specified
CPT/HCPCS: 80048; 87086

== ENCOUNTER 2022-03-22 00:41 | Outpatient (CLI) | payer MEDICARE, SELFPAY ==
--- NOTE | 2022-03-22 06:30 | DI.US_ITS ---
Exam(s) US RENAL EXAM: US RENAL CLINICAL HISTORY: ?cause for TASHI/UTI,chronic kidney disease,n18.9,n17.9,n39.0. TECHNIQUE: Huntley scale, color and spectral Doppler were used. COMPARISON: CT CHEST WITH CONTRAST from 07/17/2008 FINDINGS: Renal size in cm: Right: 10.1. Left: 9.5. Echogenicity: Normal. Hydronephrosis: No. Cyst or mass: There is a 0.7 x 0.9 x 0.8 cm simple cyst in the right kidney. No follow-up is recomme nded. Nephrolithiasis: No. Other findings: None. Bladder:Normal. Ureteral jets: Right: Visualized and unremarkable. Left: Visualized and unremarkable. Prevoid vol:117 cc Postvoid vol:58 cc Prostate: 32 cc Renal color flow: Symmetric and within normal limits. IMPRESSION: 1. Unremarkable kidneys except for a 0.9 cm simple right renal cyst. No follow-up for the cyst is re commended. 2. Small postvoid urinary bladder volume. 3. Upper limits of normal to mildly enlarged prostatic volume. DATA REPOSITORY:
== END 2022-03-22 01:01 ==
PROVIDERS: PCP Nurse Practitioner Family; Visit Provider Nurse Practitioner Family
DX: N17.9 Acute kidney failure, unspecified (principal); N18.9 Chronic kidney disease, unspecified; N39.0 Urinary tract infection, site not specified
CPT/HCPCS: 76770

== ENCOUNTER 2022-04-13 04:16 | Outpatient (CLI) | payer MEDICARE, SELFPAY ==
[2022-04-13 09:08] LABS: Anion Gap 9.1 mmol/L (3-11); BUN 19 mg/dL (7-18); CO2 29.9 mmol/L (21.0-32.0); CREATININE 1.6 mg/dL (0.70-1.30); Calcium 9.4 mg/dL (8.5-10.1); Chloride 102 mmol/L (98-107); Estimated GFR 43.29 (mL/min/1.73m2); Glucose 117 mg/dL (74-106); Potassium 3.8 mmol/L (3.5-5.1); Sodium 141 mmol/L (136-145)
== END 2022-04-13 04:17 | disposition home or self-care (01) ==
LOC: LBO 04:16
PROVIDERS: Absent Provider Nurse Practitioner Family; PCP Nurse Practitioner Family; Referring Provider Nurse Practitioner Family; Visit Provider Nurse Practitioner Family
DX: N17.9 Acute kidney failure, unspecified (principal); N18.32 Chronic kidney disease, stage 3b
CPT/HCPCS: 36415; 80048

== ENCOUNTER 2022-05-12 08:28 | Outpatient (CLI) | payer MEDICARE, SELFPAY ==
[2022-05-12 08:44] VITALS: BP 145/80; PULSE 71; RESP 20; TEMP 36.5; O2SAT 98
--- NOTE | 2022-05-12 09:31 | DI.RAD_ITS ---
Exam(s) XR PAIN CLINIC LUMBAR SP 2V EXAM: XR PAIN CLINIC LUMBAR SP 2V CLINICAL HISTORY: Dx: Lumbar Radiculopathy TECHNIQUE: 2D and realtime digital imaging was performed. CONTRAST MATERIAL: Refer to procedure report. COMPARISON: No exams were available for comparison FINDINGS: Fluoroscopy was provided for Dr. Pelletier during the performance of a lumbar epidural steroid injection. Please refer to the procedure report for complete details. Ka,r=6.6 mGy IMPRESSION:
[2022-05-12] MEDS: methylPREDNISolone ACETATE 80 MG/ML VIAL IJ ×2 (09:39→09:44)
[2022-05-12] MEDS: Omnipaque 240 MG/ML 50 ML BTL IJ ×2 (09:39→09:44)
[2022-05-12 09:45] VITALS: BP 113/65; PULSE 80; RESP 19; O2SAT 99
--- NOTE | 2022-05-12 09:48 | PDOC.PAIN_ITS ---
Date of service: 05/12/22 Time of Service: 09:51 Pain Clinic Procedure Note Procedure Note Procedure Note: Lumbar Epidural Steroid Injection Procedure Note COMMENTS:He had >4 months of >50% improvement in pain and function with his last LESI on 01/13/2022. Pain is no longer in his legs. He is doing his home exercises. Dx: Lumbosacral radiculopathy Pre-procedure pain VAS was 4/10. Partha Mantilla has been referred to the [facility] Management [facility] for lumbar epidural steroid injection. The patient was greeted by the nurse who verified patients name and . Patient was then taken to the fluoroscopy suite. The patient was interviewed and the medial record reviewed. There were no medical, pharmacologic, radiographic, or other structural contraindications to attempting fluoroscopically guided lumbar epidural steroid injection. Risks and expected side effects as well as potential benefits of the procedure were reviewed and voiced concerns expressed. The patient consent form was signed and witnessed. Standard patient time-out procedure was performed. The patient was placed in the prone position on the fluoroscopy table and automated blood pressure cuff and pulse oximeter applied. The skin entry point for entering/approaching the epidural space at the L5-S1 and marked. Following thorough chlorhexadine preparation of the skin and draping and 1% lidocaine infiltration of the skin entry point and subcutaneous tissues, a 18 gauge Touhy needle was placed under fluoroscopic guidance and with loss of resistance technique into the epidural space. Needle tip placement and depth were aided and confirmed by fluoroscopy. There was no paresthesia or return of blood or CSF through the needle. 1 cc's of Omnipaque 240 was injected with clear epidural spread confirmed with fluoroscopy. 80mg depomedrol was injected. There was not any unusual discomfort expressed by Partha Mantilla. Patient's vital signs were stable throughout the procedure and were as recorded in nursing records. Follow up plans and appointments were discussed with patient. Post procedure instruction was given as documented in nursing records and having met discharge criteria and was discharged from the Pain Management Center. COMMENTS: If this procedure is helpful, it can be completed up to 3 times per 12 months. Post-procedure pain level was 1/10. Sanya Pelletier DO, MPH [facility] [place]-Pain Management [facility]
== END 2022-05-12 08:29 | disposition home or self-care (01) ==
PROVIDERS: PCP Nurse Practitioner Family; Visit Provider Preventive Medicine Occupational Medicine
DX: M54.17 Radiculopathy, lumbosacral region (principal); M54.50 Low back pain, unspecified
CPT/HCPCS: 62323; 72100; J1040; Q9967

== ENCOUNTER 2022-06-09 01:07 | Outpatient (CLI) | payer MEDICARE, SELFPAY ==
--- NOTE | 2022-06-09 10:27 | DI.US_ITS ---
APPROVED REPORT EXAM: Comprehensive 2D, Doppler, and color-flow Echocardiogram Patient Location: Out-Patient [facility] Worker: Andre Bennett RDMS, RVT Indications: 5 year follow up mitral regurg, pacemaker Other Information Study Quality: Fair. Technically limited study due to body habitus. Conclusion Normal left ventricular wall thickness and chamber size. Estimated ejection fraction is 55%. Wall m otion is normal Normal right ventricular size and systolic function Both atria are normal in size Device lead is noted in the right heart Aortic valve is trileaflet and mildly sclerotic with trace to mild regurgitation Mild mitral annular calcification. Trace to mild mitral regurgitation Normal tricuspid valve with moderate regurgitation. Estimated right ventricular systolic pressure is 32 mmHg Wall motion Left Ventricle The left ventricle is normal size. The left ventricular systolic function is normal. The left ventric ular ejection fraction is within the normal range. There is normal left ventricular wall thickness. T here is normal LV segmental wall motion. LVEF is 55%. Right Ventricle The right ventricle is normal size. The right ventricular systolic function is normal. Pacemaker lead is present in the right ventricle. Atria The left atrium size is normal. The right atrium size is normal. Aortic Valve The Aortic valve is mildly sclerotic. Aortic valve is trileaflet. There is no aortic valvular stenosi s. Trace to mild aortic regurgitation. Mitral Valve The mitral valve is normal in structure. Mild mitral annular calcification. No evidence of mitral darryn ve stenosis. Trace to mild mitral regurgitation. Tricuspid Valve The tricuspid valve is normal in structure. There is no tricuspid valve stenosis. Moderate tricuspid regurgitation. Pulmonic Valve Pulmonic valve is grossly normal in structure. There is no pulmonic valvular stenosis. Mild pulmonic regurgitation. Great Vessels The aortic root is normal in size. Ascending aorta is normal in caliber. Aortic arch is not well visu alized. Technically limited subcostal imaging. IVC not visualized. Pericardium Technically limited subcostal imaging. 2D Dimensions IVSD d PLAX 0.82 cm M: 0.6-1.2 LV Vol A2C d MOD 69.4 mL LVPW d PLAX 0.91 cm M: 0.6 - 1.2 LV Vol A4C d MOD 74.7 mL LVID d PLAX 3.98 cm M: 4.2 - 5.8 LA vol/ BSA A2C s A-L 19.9 mL/m2 LVDs 2.80 cm M: 2.5 - 4.0 LA vol/ BSA A4C s A-L 17.5 mL/m2 Ao Root d 3.52 cm M: 3.1 - 3.7 LA Vol/ BSA Biplane s A-L 19.2 mL/m2 Ao Asc Diam d 3.28 cm M: 2.6 - 3.4 LA Area A4C s MOD 14.21 cm2 LV EF Teichholz 56.7 % LA Area A2C s MOD 15.56 cm2 LVEF (Hannon's) 47.59 % M: 52 - 72 LV EF A4C MOD 50.9 % LV Volume 55.74 mL M: 62 - 150 LV EF A2C MOD 50.3 % LV Volume Index 28.73 mL/m2 M: 34 - 74 LV EF Biplane MOD 47.6 % LV Vol Biplane MOD 73.5 mL SV 34.97 mL FS 29.25 % SV Index 18.09 mL/m2 M-Mode TAPSE 1.79 cm (M/F) >1.7 LV Diastology MV E' medial 0.054 (>0.07 m/s) E/A Ratio 0.7 LV E/e MED 10.55 (<14) MV E Vmax 0.57 (0.4-1.3 m/s) MV E' lateral 0.096 (>0.1 m/s) MV A Vmax 0.85 (0.4-1.3 m/s) LV E/e LAT 5.90 (<14) MV E/A Ratio 0.65 MV E/E' medial 10.57 MV E/E' lateral 5.93 Aortic Valve LVOT Area 2.59 cm2 AoV Area Vmax 1.40 cm2 LVOT Vmax 0.76 m/s AoV Area/ BSA (Vmax) 0.72 cm2/m2 LVOT Mean Corona. 0.60 m/s MINH Mean Corona. 1.48 cm2 LVOT Peak Grad 2.3 mmHg MINH Mean [place]. Index 0.76 cm2/m2 LVOT Mean Grad 1.6 mmHg AR DT 1610 msec LVOT VTI 0.162 m AR PHT 467 msec LVOT Diam s 1.80 cm AoV Vmax 1.41 m/s Velocity Ratio 0.54 AoV Mean Corona. 1.05 m/s AoV Peak Grad 7.9 mmHg LVOT SV 41.85 mL AoV Mean Grad 4.8 mmHg AoV VTI 0.244 m AoV Area VTI 1.72 cm2 AoV Area/ BSA (VTI) 0.89 cm/m2 Mitral Valve MV DT 288 (160-240 msec) MV PHT 84 msec MV Area PHT 2.63 cm2 MV VTI 0.187 m MV Area VTI 2.24 (4.0-6.0 cm2) Pulmonary Valve PV Vmax 0.92 (0.5-1.5 m/s) RVOT Peak Gr. 1.24 mmHg PV Peak Grad 3.4 mmHg RVOT Mean Gr. 0.70 mmHg PV Mean Grad 1.9 mmHg RVOT VTI 0.103 m PV VTI 0.144 m RVOT Vmax 0.56 m/s Tricuspid Valve TR Peak Grad 27.2 mmHg TR Vmax 2.60 m/s
== END 2022-06-09 01:27 ==
PROVIDERS: PCP Nurse Practitioner Family; Visit Provider Nurse Practitioner Family
DX: I34.0 Nonrheumatic mitral (valve) insufficiency (principal)
CPT/HCPCS: 93306

== ENCOUNTER 2022-07-29 02:54 | Outpatient (CLI) | payer MEDICARE, SELFPAY ==
[2022-07-29 07:17] LABS: Abs Immature Grans 0.01 10^3/uL (0.0-0.06); Absolute Basophil Count 0.03 10^3/uL (0.0-0.2); Absolute Lymphocyte Count 2.53 10^3/uL (1.2-3.4); Absolute Monocyte Count 0.97 10^3/uL (0.1-0.8); Absolute Neutrophil Count 3.12 10^3/uL (1.2-6.7); Basophils % 0.4; Eosinophils % 5.7; HCT 33.7 % (40.0-50.0); HGB 11.3 g/dL (13.5-17.5); Immature Grans % 0.1; Lymphocytes % 35.8; MCH 30.4 pg (27.0-33.0); MCHC 33.5 % (32.0-36.0); MCV 91 fL (80-95); MPV 8.1 fL (8.0-11.0); Monocytes % 13.7; Neutrophils % 44.3; Platelet Count 288 10^3/uL (130-400); RBC 3.72 10^6/uL (4.36-5.78); RDW 13.7 % (11.8-14.1); RDW-SD 45.4 fL; WBC 7.06 10^3/uL (4.4-10.8)
[2022-07-29 08:47] LABS: Iron 80 ug/dL (65-175); Total Iron Binding Capacity 263 ug/dL (250-450); Transferrin Sat 30 % (20-55)
[2022-07-29 08:59] LABS: Folate 16.8 ng/mL (8.6-20.0)
[2022-07-29 09:06] LABS: ALT 10 U/L (16-63); AST 18 U/L (15-37); Albumin 3.5 g/dL (3.4-5.0); Alkaline Phosphatase 79 U/L (46-116); Anion Gap 12.1 mmol/L (3-11); BUN 27 mg/dL (7-18); Bilirubin, Total 0.7 mg/dL (0.2-1.0); CO2 26.9 mmol/L (21.0-32.0); CREATININE 1.6 mg/dL (0.70-1.30); Calcium 8.4 mg/dL (8.5-10.1); Chloride 104 mmol/L (98-107); Estimated GFR 43.29 (mL/min/1.73m2); Ferritin 68 ng/mL (26-388); Glucose 97 mg/dL (74-106); Potassium 3.9 mmol/L (3.5-5.1); Sodium 143 mmol/L (136-145); Total Protein 8.1 g/dL (6.4-8.2); Vitamin B12 261 pg/mL (193-986)
== END 2022-07-29 02:55 | disposition home or self-care (01) ==
PROVIDERS: Absent Provider Nurse Practitioner Family; PCP Nurse Practitioner Family; Referring Provider Nurse Practitioner Family; Visit Provider Nurse Practitioner Family
DX: D64.9 Anemia, unspecified (principal); D50.9 Iron deficiency anemia, unspecified; I10 Essential (primary) hypertension; N18.32 Chronic kidney disease, stage 3b; Z79.899 Other long term (current) drug therapy
CPT/HCPCS: 36415; 80053; 82607; 82728; 82746; 83540; 83550; 85025

== ENCOUNTER 2022-08-08 18:59 | Emergency (ER) | payer MEDICARE, SELFPAY ==
[2022-08-08 19:02] VITALS: BP 147/73; PULSE 104; RESP 18; TEMP 37.1; O2SAT 95
--- NOTE | 2022-08-08 19:23 | ED.GENADUL_ITS ---
Discharge Plan Disposition Patient Disposition: Home Condition: Stable Discharge Details Clinical Impression: Tick bite of back Primary Care Provider: Perri Roca ED Provider: Addie Centeno Home Meds and New Rx's Prescriptions: New doxycycline hyclate 100 mg tablet 100 mg PO BID 10 Days Qty: 20 0RF No Action omeprazole 20 mg capsule,delayed release(DR/EC) 20 mg PO DAILY Qty: 90 3RF Rx Instructions: Take 20 mg once daily on an empty stomach at least 30 minutes before first meal lisinopril 40 mg tablet 40 mg PO DAILY Qty: 90 3RF Hold Instructions: Home Medication placed on hold at Doctor's office cyanocobalamin (vitamin B-12) 1,000 mcg tablet 1,000 mcg PO DAILY Qty: 90 3RF diclofenac sodium 1 % gel 2 g Topical QID PRN (Reason: pain) Qty: 100 3RF Rx Instructions: Apply a thin film (2 GM) to affected areas up to four times daily as needed for pain. acetaminophen 500 mg tablet 500 - 1,000 mg PO TID PRN (Reason: pain) Qty: 270 3RF multivitamin Tablet 1 tab PO DAILY Qty: 90 Rx Instructions: Takes during winter furosemide 20 mg tablet 20 mg PO DAILY AM Qty: 90 3RF Discharge Instructions Instructions: Tick Bite (ED) Additional Instructions: Please take the antibiotics twice daily with yogurt or probiotic as directed. Follow up with primary care provider in 3-5 days. Return to ED sooner if any worsening or concerns. Increase oral fluids. Please take Tylenol or Ibuprofen with food every 4-6 hours as needed for pain and swelling. Referrals: Perri Roca, VISION THERAPIST [Primary Care Provider] - 5 days Medical Decision Making 81-year-old male presents to the ER with a chief complaint of tick bite to his lower back which he noticed this afternoon. Unknown amount of time that it was attached. He does have a surrounding small amount of erythema and raised skin. Tick is moderately engorged. Does have brown legs. Tick removed from lower back, it is alive. Tick was disposed of. We will give patient doxycycline 100 mg twice daily. Tick including head was completely removed. Discussed home care and follow-up care. This text was generated using [employer] Points[employer] system, please disregard any oddities of phrase or misspellings. HPI General Mode of arrival: ambulatory . Date/Time Provider Initiated Documentation: 08/08/22 19:23 . Limitations to Documentation: no limitations . Information obtained by: patient, RN notes reviewed and old records reviewed . HPI Narrative: 81-year-old male presents to the ER with a chief complaint of tick bite to his lower back which he noticed this afternoon. Unknown amount of time that it was attached. He does have a surrounding small amount of erythema and raised skin. Tick is moderately engorged. Does have brown legs. Related Data Home Medications Medication Instructions Recorded Confirmed multivitamin 1 tab PO DAILY ##90 09/16/19 08/08/22 diclofenac sodium 1 % topical gel 2 g topical QID PRN pain #100 grams 02/11/21 08/08/22 acetaminophen 500 mg tablet 500 - 1,000 mg PO TID PRN pain 02/18/22 08/08/22 #270 tab-caps lisinopril 40 mg tablet 40 mg PO DAILY #90 tab-caps 04/20/22 08/08/22 omeprazole 20 mg capsule,delayed 20 mg PO DAILY #90 tab-caps 04/20/22 08/08/22 release furosemide 20 mg tablet 20 mg PO DAILY AM #90 tab-caps 06/28/22 08/08/22 cyanocobalamin (vitamin B-12) 1,000 mcg PO DAILY #90 tab-caps 08/04/22 08/08/22 1,000 mcg tablet doxycycline hyclate 100 mg tablet 100 mg PO BID 10 days #20 tabs 08/08/22 Previous Rx's Medication Instructions Recorded diclofenac sodium 1 % topical gel 2 g topical QID PRN pain #100 grams 02/11/21 acetaminophen 500 mg tablet 500 - 1,000 mg PO TID PRN pain 02/18/22 #270 tab-caps lisinopril 40 mg tablet 40 mg PO DAILY #90 tab-caps 04/20/22 omeprazole 20 mg capsule,delayed 20 mg PO DAILY #90 tab-caps 04/20/22 release furosemide 20 mg tablet 20 mg PO DAILY AM #90 tab-caps 06/28/22 cyanocobalamin (vitamin B-12) 1,000 mcg PO DAILY #90 tab-caps 08/04/22 1,000 mcg tablet doxycycline hyclate 100 mg tablet 100 mg PO BID 10 days #20 tabs 08/08/22 Allergies Allergy/AdvReac Type Severity Reaction Status Date / Time peanut Allergy Intermediate sneezes Verified 08/08/22 19:11 hydrochlorothiazide AdvReac Intermediate Other (See Verified 08/08/22 19:11 Comment) General Stated Complaint: InsectBite BERTRAND: 4 PFSH All Active Problems (Updated 08/08/22 @ 19:30 by Addie Centeno NP) Tick bite of back (Acute) Vitamin B12 deficiency (Acute) Moderate tricuspid regurgitation (Chronic) 06/09/22 echo: mild --> repeat 1-2 years (due: 2024) Degenerative disc disease, lumbar (Acute) Mild mitral valve regurgitation (Chronic ~2017) 06/09/22 echo: mild --> repeat 3-5 years (due: 2027) Osteoarthritis of left knee (Acute) Osteoarthritis of right knee (Acute) Hiatal hernia (Chronic) 05/08/2018 EGD Unspecified essential hypertension (Chronic 06/27/12) PCEq risk 23%; goal 150/90 Pacemaker (Chronic 08/16/17) Syncope 07/2017 --> 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 Neuropathy (Chronic 08/24/12) R post soulder Iron deficiency anemia (Chronic 11/24/11) neg colonoscopy, EGD Lawler's; C Kourtney 2011; freq blood donations; chronic, nml Epo, likely 2/2 CKD Chronic kidney disease (Chronic 12/29/16) Candidate for statin therapy due to risk of future cardiovascular event (Chronic 01/05/17) 12/2016 labwork: 10-year ASCVD risk = ~33% --> pt declines statins Lawler's esophagus (Chronic ~2011) Most recent EGD 05/08/2018: no endoscopic evidence for Lawler's, consider repeat EGD in 2-3 years for surveillance; discussed with pt 07/2021 & he declines further surveillance EGDs Medical History Cervical radiculopathy (10/04/12) HLD (hyperlipidemia) Syncope (03/28/11) Initially 2011 with negative workup; recurrent 07/2017 and found to have sinus pause --> PPM placed 07/26/2017 Surgical History [place] (05/08/14[place] [place]07[place]26/17[place] [facility] [place] History Mother Parkinson disease Father Myocardial infarction Heart disease Sister Stroke Cancer Stomach or pancreatic? Social History Smoking/Tobacco Use Status: Former Tobacco Use Quit Date: 03/13/1968 Tobacco: How many years used: 2 Smoking risk assessment performed?: Yes Alcohol Intake: former Drug use: Never Substance use type: does not use Adopted: No Caregiver/Support person: No Foster care: No Housing: house Number of Children: 1 Communication Needs: None Education Level: college Do you need help understanding health information?: Rarely current occupation: Retired Pets and animals: Yes Pets and animals: cat(s) Sexually active: No Do you think of yourself as: straight/heterosexual Current gender identity: male Other: What is your relationship status?: How often do you talk on the phone with friends or family?: three or more times per week How often do you get together with friends or relatives?: three or more times per week Do you belong to any clubs or organized social groups?: yes Panel score (0-1 are the most socially isolated patients): 2 What type of physical activity do you participate in: walking Edna/Zoroastrian: Orthodox Special edna needs: No Seatbelt use: always Helmet use: No Drive intox or ride w/intox full service vending 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 Exam Back/Spine/Pelvis Back/spine/pelvis image: 1. Approximately 3 cm x 3 cm area of raised red rash surrounding the tick bite. Course Vital Signs Vital signs: Vital Signs Temperature 37.1 C 08/08/22 19:02 Pulse 104 H 08/08/22 19:02 Respiratory Rate 18 08/08/22 19:02 Blood Pressure 147/73 H 08/08/22 19:02 Pulse Oximetry 95 08/08/22 19:02 Temperature 37.1 C 08/08/22 19:02 Pulse 104 H 08/08/22 19:02 Respiratory Rate 18 08/08/22 19:02 Respiratory Effort Normal, Non-Labored 08/08/22 19:03 Blood Pressure 147/73 H 08/08/22 19:02 Pulse Oximetry 95 08/08/22 19:02 Oxygen Delivery Method Room Air 08/08/22 19:02 Oxygen Flow Rate 0 08/08/22 19:02 Procedures Foreign Body Removal Time Out Performed: no Site: other (Back) Description of foreign body: insect (Tick) Sedation/Analgesia: none Technique: manual removal Confirmed by:: direct visualization Complications: none Post-procedure exam: awake, alert Neurovascular: normal distal pulse, normal capillary fill, distal light touch se nsation intact, distal motor function normal and no change from pre-procedure
[2022-08-08] MEDS: Doxycycline Hyclate 100 MG CAP PO (19:34)
[2022-08-08] MEDS: Doxycycline Hyclate 100 MG, 2 CAPS/BTL PO (19:34)
== END 2022-08-08 19:39 | disposition home or self-care (01) ==
PROVIDERS: Emergency Provider Registered Nurse Emergency; PCP Nurse Practitioner Family
DX: S20.469A Insect bite (nonvenomous) of unspecified back wall of thorax, initial encounter (principal); W57.XXXA Bitten or stung by nonvenomous insect and other nonvenomous arthropods, initial encounter
CPT/HCPCS: 99283; 99284

== ENCOUNTER 2022-09-03 10:23 | Emergency (ER) | payer MEDICARE, SELFPAY ==
[2022-09-03 10:26] VITALS: BP 172/93; PULSE 95; RESP 15; TEMP 36.8; O2SAT 99
--- NOTE | 2022-09-03 10:30 | DI.RAD_ITS ---
Exam(s) XR FINGER RT MIDDLE EXAM: XR FINGER RT MIDDLE CLINICAL HISTORY: 5th dip pain, swelling, and redness. TECHNIQUE: 2D digital imaging was performed. Three views. COMPARISON: No exams were available for comparison FINDINGS: BONES: No acute fracture is present. No bony destructive lesion is seen. Degenerative cysts are note d in the distal ulna. JOINTS: Mild degenerative changes of the interphalangeal joints of the fingers. Moderate degenerativ e changes 3rd metacarpophalangeal joint. Advanced degenerative changes at the distal radial ulnar crow int. SOFT TISSUE: Swelling of the 3rd finger. IMPRESSION: No acute abnormality DATA REPOSITORY: RADIATION DOSE DELIVERED:
--- NOTE | 2022-09-03 10:54 | ED.GENADUL_ITS ---
Discharge Plan Disposition Patient Disposition: Home Discharge Details Clinical Impression: Finger pain, right Primary Care Provider: Perri Roca ED Provider: Rosalinda Mcmanus Home Meds and New Rx's Prescriptions: New cephalexin 500 mg capsule 500 mg PO Q6H 7 Days Qty: 28 0RF Continued omeprazole 20 mg capsule,delayed release(DR/EC) 20 mg PO DAILY Qty: 90 3RF Rx Instructions: Take 20 mg once daily on an empty stomach at least 30 minutes before first meal lisinopril 40 mg tablet 40 mg PO DAILY Qty: 90 3RF Hold Instructions: Home Medication placed on hold at Doctor's office cyanocobalamin (vitamin B-12) 1,000 mcg tablet 1,000 mcg PO DAILY Qty: 90 3RF diclofenac sodium 1 % gel 2 g Topical QID PRN (Reason: pain) Qty: 100 3RF Rx Instructions: Apply a thin film (2 GM) to affected areas up to four times daily as needed for pain. acetaminophen 500 mg tablet 500 - 1,000 mg PO TID PRN (Reason: pain) Qty: 270 3RF multivitamin Tablet 1 tab PO DAILY Qty: 90 Rx Instructions: Takes during winter furosemide 20 mg tablet 20 mg PO DAILY AM Qty: 90 3RF Discharge Instructions Additional Instructions: Take the antibiotic as prescribed Apply Voltaren gel topically Wear your splint Take Tylenol 650 every 4-6 hours Return earlier should you have new or worsening complaints Referrals: Perri Roca, ALGEBRAIST [Primary Care Provider] - Medical Decision Making 81-year-old male with swollen, erythematous right fifth digit X-ray does not show evidence of an obvious fracture, there is a possible cyst in patient's right fifth digit, read as a well-corticated multicystic structure, patient is encouraged to follow-up with his primary care physician in 24 to 48 hours for reassessment Placed in a splint Placed on Keflex to cover empirically for infection Return precautions reviewed and patient expressed understanding Tylenol as needed pain HPI General Date/Time Provider Initiated Documentation: 09/03/22 10:38 . HPI Narrative: This 81-year-old male presents with swollen right fifth digit on his hand since Monday. Denies injury. States he has pain with flexion of his finger. Denies fever or chills. Related Data Home Medications Medication Instructions Recorded Confirmed multivitamin 1 tab PO DAILY ##90 09/16/19 08/08/22 diclofenac sodium 1 % topical gel 2 g topical QID PRN pain #100 grams 02/11/21 08/08/22 acetaminophen 500 mg tablet 500 - 1,000 mg PO TID PRN pain 02/18/22 09/03/22 #270 tab-caps lisinopril 40 mg tablet 40 mg PO DAILY #90 tab-caps 04/20/22 09/03/22 omeprazole 20 mg capsule,delayed 20 mg PO DAILY #90 tab-caps 04/20/22 09/03/22 release furosemide 20 mg tablet 20 mg PO DAILY AM #90 tab-caps 06/28/22 09/03/22 cyanocobalamin (vitamin B-12) 1,000 mcg PO DAILY #90 tab-caps 08/04/22 08/08/22 1,000 mcg tablet cephalexin 500 mg capsule 500 mg PO Q6H 7 days #28 caps 09/03/22 Previous Rx's Medication Instructions Recorded diclofenac sodium 1 % topical gel 2 g topical QID PRN pain #100 grams 02/11/21 acetaminophen 500 mg tablet 500 - 1,000 mg PO TID PRN pain 02/18/22 #270 tab-caps lisinopril 40 mg tablet 40 mg PO DAILY #90 tab-caps 04/20/22 omeprazole 20 mg capsule,delayed 20 mg PO DAILY #90 tab-caps 04/20/22 release furosemide 20 mg tablet 20 mg PO DAILY AM #90 tab-caps 06/28/22 cyanocobalamin (vitamin B-12) 1,000 mcg PO DAILY #90 tab-caps 08/04/22 1,000 mcg tablet cephalexin 500 mg capsule 500 mg PO Q6H 7 days #28 caps 09/03/22 Allergies Allergy/AdvReac Type Severity Reaction Status Date / Time peanut Allergy Intermediate sneezes Verified 09/03/22 10:31 hydrochlorothiazide AdvReac Intermediate Other (See Verified 09/03/22 10:31 Comment) General Stated Complaint: Cellulitis BERTRAND: 4 PFSH All Active Problems (Updated 09/03/22 @ 11:32 by MARISELA Jane) Tick bite of back (Acute) Finger pain, right (Acute) Vitamin B12 deficiency (Acute) Moderate tricuspid regurgitation (Chronic) 06/09/22 echo: mild --> repeat 1-2 years (due: 2024) Degenerative disc disease, lumbar (Acute) Mild mitral valve regurgitation (Chronic ~2017) 06/09/22 echo: mild --> repeat 3-5 years (due: 2027) Osteoarthritis of left knee (Acute) Osteoarthritis of right knee (Acute) Hiatal hernia (Chronic) 05/08/2018 EGD Unspecified essential hypertension (Chronic 06/27/12) PCEq risk 23%; goal 150/90 Pacemaker (Chronic 08/16/17) Syncope 07/2017 --> 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 Neuropathy (Chronic 08/24/12) R post soulder Iron deficiency anemia (Chronic 11/24/11) neg colonoscopy, EGD Lawler's; C Kourtney 2011; freq blood donations; chronic, nml Epo, likely 2/2 CKD Chronic kidney disease (Chronic 12/29/16) Candidate for statin therapy due to risk of future cardiovascular event (Chronic 01/05/17) 12/2016 labwork: 10-year ASCVD risk = ~33% --> pt declines statins Lawler's esophagus (Chronic ~2011) Most recent EGD 05/08/2018: no endoscopic evidence for Lawler's, consider repeat EGD in 2-3 years for surveillance; discussed with pt 07/2021 & he declines further surveillance EGDs Medical History Cervical radiculopathy (10/04/12) HLD (hyperlipidemia) Syncope (03/28/11) Initially 2011 with negative workup; recurrent 07/2017 and found to have sinus pause --> PPM placed 07/26/2017 Surgical History Endoscopy (05/08/14) Upper GI Dr Graham[place] [place] EGD W/ bx Pacemaker (07/26/17) [facility] [place] Family History Mother Parkinson disease Father Myocardial infarction Heart disease Sister Stroke Cancer Stomach or pancreatic? Social History Smoking/Tobacco Use Status: Former Tobacco Use Quit Date: 03/13/1968 Tobacco: How many years used: 2 Smoking risk assessment performed?: Yes Alcohol Intake: former Drug use: Never Substance use type: does not use Adopted: No Caregiver/Support person: No Foster care: No Housing: house Number of Children: 1 Communication Needs: None Education Level: college Do you need help understanding health information?: Rarely current occupation: Retired Pets and animals: Yes Pets and animals: cat(s) Sexually active: No Do you think of yourself as: straight/heterosexual Current gender identity: male Other: What is your relationship status?: How often do you talk on the phone with friends or family?: three or more times per week How often do you get together with friends or relatives?: three or more times per week Do you belong to any clubs or organized social groups?: yes Panel score (0-1 are the most socially isolated patients): 2 What type of physical activity do you participate in: walking Edna/Alevism: Sikh Special edna needs: No Seatbelt use: always Helmet use: No Drive intox or ride w/intox tilt tray 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 Course Vital Signs Vital signs: Vital Signs Temperature 36.8 C 09/03/22 10:26 Pulse 95 H 09/03/22 10:26 Respiratory Rate 15 09/03/22 10:26 Blood Pressure 172/93 H 09/03/22 10:26 Pulse Oximetry 99 09/03/22 10:26 Temperature 36.8 C 09/03/22 10:26 Temperature Source Temporal Artery Scan 09/03/22 10:26 Pulse 95 H 09/03/22 10:26 Respiratory Rate 15 09/03/22 10:26 Respiratory Effort Normal 09/03/22 10:28 Blood Pressure 172/93 H 09/03/22 10:26 Blood Pressure Position Sitting 09/03/22 10:26 Pulse Oximetry 99 09/03/22 10:26 Oxygen Delivery Method Room Air 09/03/22 10:26 Oxygen Flow Rate 0 09/03/22 10:26 Pain Level 8 09/03/22 10:26
--- NOTE | 2022-09-03 11:30 | DI.VRAD_ITS ---
PROCEDURE INFORMATION: Exam: XR Right Finger(s) Exam date and time: 09/03/2022 11:00 AM Age: 81 years old Clinical indication: Pain; Finger(s); Right TECHNIQUE: Imaging protocol: Radiologic exam of the right fingers. Views: Minimum 2 views. COMPARISON: No relevant prior studies available. FINDINGS: Bones/joints: Degenerative changes in the DIP joint and PIP joint of the finger. There is no evidence of acute fracture.There is no evidence of malalignment or dislocation. Well corticated multi-cystic structure in the distal ulna. Recommend further evaluation if clinically indicated Soft tissues: Soft tissue swelling of the finger IMPRESSION: There is no evidence of acute fracture.There is no evidence of malalignment or dislocation. Well corticated multi-cystic structure in the distal ulna. Recommend further evaluation if clinically indicated Dictated and Authenticated by: Yessica Rios MD. Ordering:ANUJA Tellez MD
== END 2022-09-03 11:47 | disposition home or self-care (01) ==
PROVIDERS: Emergency Provider Physician Assistant; PCP Nurse Practitioner Family
DX: M79.644 Pain in right finger(s) (principal)
CPT/HCPCS: 29130; 99283; 73140; 99284

== ENCOUNTER 2022-09-05 13:18 | Outpatient (REF) | payer MEDICARE, SELFPAY ==
[2022-09-05 17:38] LABS: Uric Acid 9.4 mg/dL (3.5-7.2)
== END 2022-09-05 13:19 | disposition home or self-care (01) ==
LOC: LBN 13:18
PROVIDERS: PCP Nurse Practitioner Family; Visit Provider Nurse Practitioner Adult Health
DX: M79.644 Pain in right finger(s) (principal)
CPT/HCPCS: 84550

== ENCOUNTER 2022-10-21 07:29 | Outpatient (CLI) | payer MEDICARE, SELFPAY ==
--- NOTE | 2022-10-21 06:00 | DI.RAD_ITS ---
Exam(s) XR PAIN CLINIC LUMBAR SP 2V EXAM: XR PAIN CLINIC LUMBAR SP 2V CLINICAL HISTORY: Dx: Lumbar Radiculopathy TECHNIQUE: 2D and realtime digital imaging was performed. CONTRAST MATERIAL: Refer to procedure report. COMPARISON: No exams were available for comparison FINDINGS: Fluoroscopy was provided for Dr. Pelletier during the performance of a pain management treatment. Please refer to the procedure report for complete details. Ka,r=7.86 mGy IMPRESSION:
[2022-10-21 07:51] VITALS: BP 152/88; PULSE 81; RESP 20; TEMP 36.7; O2SAT 96
--- NOTE | 2022-10-21 08:48 | PDOC.PAIN_ITS ---
Date of service: 10/21/22 Time of Service: 08:48 Pain Managment Procedure Note Procedure Note Procedure Note: PROCEDURE NOTE LUMBAR EPIDURAL STEROID INJECTION Date of Service: October 21, 2022 Patient:Partha Calhoun? Provider: Sanya Pelletier DO, MPH Partha Mantilla has been referred to the [facility] for a lumbar epidural steroid injection. Pre-operative diagnosis: Lumbosacral Radiculopathy Post-operative diagnosis: Same Pre-Procedure Pain: VAS= 7 /10 Comments: He had this procedure on 05/12/22 and had >3 months of >50% pain relief. Partha was interviewed and the medical record was reviewed.? There were no medical, pharmacologic, radiographic or other structural contraindications to attempting fluoroscopically guided Lumbar epidural steroid injection.? Risks, potential side effects, indications, and potential benefits of the procedure were reviewed with Partha.? Questions and concerns were addressed.? After it was clear that Partha was fully informed about the procedure, the printed consent form was signed by the patient and myself.? Partha was placed in the prone position on the fluoroscopy table and automated blood pressure cuff and pulse oximeter applied. The skin entry point for entering/approaching the epidural space for the lumbar epidural steroid injection was marked. Following thorough chlorhexadine preparation of the skin and draping and 1% lidocaine infiltration of the skin entry point and subcutaneous tissues, an 18 gauge Touhy needle was placed and advanced under fluoroscopic guidance and with loss of resistance technique into the L5-S1 epidural space. Needle tip placement and depth were aided and confirmed by fluoroscopy. There was no paresthesia or return of blood or CSF through the needle. 1 mls of Omnipaque 240 was injected with clear epidural spread confirmed with fluoroscopy. 80 mg of Depo-Medrol was? injected. This was followed by 1 ml of preservative-free normal saline to flush the steroid out of the needle. There was no unusual discomfort expressed by Partha. The needle was withdrawn without difficulty. (49 mls of Omnipaque was wasted) Partha was observed and was without hemodynamic, neurologic, or allergic reactions.? Fluoroscopic images were digitally archived. Partha's vital signs were stable throughout the procedure and were as recorded in nursing records. Follow up plans and appointments were discussed with Partha. Post procedure instruction was given as documented in nursing records and having met discharge criteria Partha was discharged from the [facility]. COMMENTS: No apparent complications. Post-procedure pain: VAS= 0/10. Ross to contact [facility] as needed. If at least 50% improvement in pain and/or function for at least 3 months is achieved, this procedure can be repeated. I personally performed this entire procedure. SANYA PELLETIER DO, MPH ABPMR-subspecialty board certification in Pain Medicine [facility]
[2022-10-21] MEDS: Omnipaque 240 MG/ML 50 ML BTL IJ (08:53)
[2022-10-21] MEDS: methylPREDNISolone ACETATE 80 MG/ML VIAL IJ (08:53)
[2022-10-21 09:04] VITALS: BP 155/72; PULSE 76; RESP 18; O2SAT 100
== END 2022-10-21 07:30 | disposition home or self-care (01) ==
LOC: PC 07:29
PROVIDERS: PCP Nurse Practitioner Family; Visit Provider Preventive Medicine Occupational Medicine
DX: M54.50 Low back pain, unspecified (principal); M54.17 Radiculopathy, lumbosacral region
CPT/HCPCS: 62323; 72100; J1040; Q9967

== ENCOUNTER 2022-10-27 05:01 | Outpatient (CLI) | payer MEDICARE, SELFPAY ==
[2022-10-27 09:45] LABS: Abs Immature Grans 0.05 10^3/uL (0.0-0.06); Absolute Lymphocyte Count 2.86 10^3/uL (1.2-3.4); Absolute Monocyte Count 1.13 10^3/uL (0.1-0.8); Basophils % 0.4; Eosinophils % 0.4; HCT 36.2 % (40.0-50.0); HGB 11.8 g/dL (13.5-17.5); Immature Grans % 0.4; Lymphocytes % 25.7; MCH 30.1 pg (27.0-33.0); MCHC 32.6 % (32.0-36.0); MCV 92 fL (80-95); MPV 7.9 fL (8.0-11.0); Monocytes % 10.2; Neutrophils % 62.9; Platelet Count 301 10^3/uL (130-400); RBC 3.92 10^6/uL (4.36-5.78); RDW 12.3 % (11.8-14.1); RDW-SD 41.4 fL; WBC 11.12 10^3/uL (4.4-10.8)
[2022-10-27 09:46] LABS: Absolute Basophil Count 0.04 10^3/uL (0.0-0.2); Absolute Eosinophil Count 0.04 10^3/uL (0.0-0.7); Absolute Neutrophil Count 6.99 10^3/uL (1.2-6.7)
[2022-10-27 11:00] LABS: Iron 98 ug/dL (65-175); Total Iron Binding Capacity 261 ug/dL (250-450); Transferrin Sat 38 % (20-55)
[2022-10-27 11:27] LABS: Ferritin 84 ng/mL (26-388); Vitamin B12 516 pg/mL (193-986)
[2022-10-27 12:33] LABS: Lab Add On Test DONE
[2022-10-27 12:46] LABS: ALT 11 U/L (16-63); AST 17 U/L (15-37); Albumin 3.8 g/dL (3.4-5.0); Alkaline Phosphatase 85 U/L (46-116); Anion Gap 14.3 mmol/L (3-11); BUN 23 mg/dL (7-18); Bilirubin, Total 0.9 mg/dL (0.2-1.0); CO2 27.7 mmol/L (21.0-32.0); CREATININE 1.6 mg/dL (0.70-1.30); Calcium 7.6 mg/dL (8.5-10.1); Chloride 103 mmol/L (98-107); Estimated GFR 43.02 (mL/min/1.73m2); Glucose 112 mg/dL (74-106); Potassium 3.7 mmol/L (3.5-5.1); Sodium 145 mmol/L (136-145); Total Protein 8.3 g/dL (6.4-8.2)
== END 2022-10-27 05:02 | disposition home or self-care (01) ==
LOC: LBO 05:01
PROVIDERS: PCP Nurse Practitioner Family; Referring Provider Nurse Practitioner Family; Visit Provider Nurse Practitioner Family
DX: D50.9 Iron deficiency anemia, unspecified (principal); E53.8 Deficiency of other specified B group vitamins; N18.32 Chronic kidney disease, stage 3b
CPT/HCPCS: 36415; 80053; 82607; 82728; 83540; 83550; 85025

== ENCOUNTER 2022-11-28 04:26 | Outpatient (CLI) | payer MEDICARE, SELFPAY ==
[2022-11-28 14:16] LABS: Lab Add On Test DONE
[2022-11-28 15:42] LABS: Magnesium 0.7 mg/dL (1.8-2.4)
[2022-11-28 15:59] LABS: PHOSPHORUS 2.7 mg/dL (2.6-4.7)
[2022-11-28 16:21] LABS: Vitamin D 25 Total 33.6 ng/mL (30-100)
[2022-11-28 23:09] LABS: Parathyroid Hormone,Intact 65 pg/mL (19-88)
[2022-12-01 13:17] LABS: 1,25-Dihydroxyvitamin D 30 pg/mL (18-64)
== END 2022-11-28 04:27 | disposition home or self-care (01) ==
LOC: LBO 04:26
PROVIDERS: Absent Provider Nurse Practitioner Family; PCP Nurse Practitioner Family; Visit Provider Nurse Practitioner Family
DX: E83.51 Hypocalcemia (principal); N18.32 Chronic kidney disease, stage 3b
CPT/HCPCS: 36415; 82306; 82652; 83735; 83970; 84100

== ENCOUNTER 2022-12-06 02:23 | Outpatient (CLI) | payer MEDICARE, SELFPAY ==
[2022-12-06 10:13] LABS: ALT 15 U/L (16-63); AST 17 U/L (15-37); Albumin 3.5 g/dL (3.4-5.0); Alkaline Phosphatase 87 U/L (46-116); Anion Gap 11.2 mmol/L (3-11); BUN 26 mg/dL (7-18); Bilirubin, Total 0.5 mg/dL (0.2-1.0); CO2 28.8 mmol/L (21.0-32.0); CREATININE 1.7 mg/dL (0.70-1.30); Calcium 8.1 mg/dL (8.5-10.1); Chloride 102 mmol/L (98-107); Glucose 96 mg/dL (74-106); Potassium 3.5 mmol/L (3.5-5.1); Sodium 142 mmol/L (136-145); Total Protein 7.9 g/dL (6.4-8.2)
[2022-12-06 10:20] LABS: Magnesium 0.7 mg/dL (1.8-2.4)
== END 2022-12-06 02:24 | disposition home or self-care (01) ==
LOC: LBO 02:23
PROVIDERS: Absent Provider Nurse Practitioner Family; PCP Nurse Practitioner Family; Referring Provider Nurse Practitioner Family; Visit Provider Nurse Practitioner Family
DX: E83.51 Hypocalcemia (principal); E83.42 Hypomagnesemia
CPT/HCPCS: 36415; 80053; 83735

== ENCOUNTER 2022-12-16 02:34 | Outpatient (CLI) | payer MEDICARE, SELFPAY ==
[2022-12-16 08:52] LABS: Anion Gap 8.7 mmol/L (3-11); BUN 22 mg/dL (7-18); CO2 28.3 mmol/L (21.0-32.0); CREATININE 1.6 mg/dL (0.70-1.30); Calcium 9.3 mg/dL (8.5-10.1); Chloride 102 mmol/L (98-107); Estimated GFR 43.02 (mL/min/1.73m2); Glucose 104 mg/dL (74-106); Magnesium 1.2 mg/dL (1.8-2.4); Sodium 139 mmol/L (136-145)
== END 2022-12-16 02:35 | disposition home or self-care (01) ==
LOC: LBO 02:34
PROVIDERS: Absent Provider Nurse Practitioner Family; PCP Nurse Practitioner Family; Visit Provider Nurse Practitioner Family
DX: E83.42 Hypomagnesemia (principal); E83.51 Hypocalcemia
CPT/HCPCS: 36415; 80048; 83735

== ENCOUNTER → 2022-12-19 02:07 | Outpatient (CLI) | payer MEDICARE, SELFPAY ==
--- NOTE | 2022-12-19 08:00 | DI.CT_ITS ---
Exam(s) CT LUMBAR SPINE WO EXAM: CT LUMBAR SPINE WO CLINICAL HISTORY: CHRONIC BACK PAIN,SPINAL STENOSIS,M54.9,M48.00. TECHNIQUE: Imaging Protocol: Axial computed tomography images with coronal and sagittal reformatted images were created and reviewed COMPARISON: CT CT LUMBAR SPINE WO from 10/25/2021 FINDINGS: Bones: The last intervertebral disc space is designated the L5/S1 level for the numbering purpose of this examination. The vertebral body heights are well maintained. Moderate degenerative levo scoliosis. No fracture is seen. T12-L1: No disc herniations or bulges are present. L1-2: Severe loss of disc height and partial fusion between the vertebral bodies, eccentric toward t he left. Severe bilateral neural foraminal narrowing. Mild to moderate Central canal stenosis. L2-3: Loss of disc height. Small endplate osteophytes and vacuum phenomena. Subchondral cysts in the vertebral endplates. Severe bilateral neural foraminal narrowing. Severe central canal stenosis. L3-4: Severe loss of disc height. Broad-based disc osteophytes. Severe central canal stenosis. Sever e bilateral neural foraminal narrowing. L4-5: Severe loss of disc height. Large osteophytes eccentric toward the left. Prominent facet degen erative changes and ligamentous hypertrophy combine to produce severe central canal stenosis. There i s severe bilateral neural foraminal narrowing. L5-S1: Severe loss of disc height. Endplate osteophytes and vacuum phenomenon. Facet degenerative ch anges. Severe bilateral neural foraminal narrowing. Moderate to severe central canal stenosis. The visualized SI joints and sacrum are will maintained. Soft Tissues: The paraspinal soft tissues are unremarkable. IMPRESSION: Severe degenerative disc changes and facet degenerative changes throughout causing multilevel severe bilateral neural foraminal stenosis and severe central canal stenosis. RADIATION DOSE DELIVERED: Total DLP DATA REPOSITORY: All CT scans at this facility are submitted to the National Radiology Data Registry (NRDR) Dose Index Registry (DIR) with the [employer] (ACR). RADIATION OPTIMIZATION: All CT scans at this facility use at least one of these dose optimization te chniques: automated exposure control; mA and/or kV adjustment per patient size (includes targeted exa ms where dose is matched to clinical indication); or iterative reconstruction.
== END ==
PROVIDERS: PCP Nurse Practitioner Family; Visit Provider Nurse Practitioner Family
DX: M48.07 Spinal stenosis, lumbosacral region; M99.63 Osseous and subluxation stenosis of intervertebral foramina of lumbar region
CPT/HCPCS: 72131

== ENCOUNTER 2023-04-26 15:32 | Outpatient (CLI) | payer OTHER, SELFPAY ==
[2023-04-26 15:53] VITALS: BP 127/77; PULSE 83; RESP 20; TEMP 36.6; O2SAT 96
[2023-04-26 16:55] VITALS: PULSE 80; O2SAT 98
[2023-04-26] MEDS: methylPREDNISolone ACETATE 40 MG/ML VIAL IJ (17:05)
[2023-04-26] MEDS: Nerve Block Tray 1 EACH MC (17:05)
[2023-04-26] MEDS: Lidocaine 2% Pres-Free 5 ML VIAL IJ (17:05)
--- NOTE | 2023-05-16 10:11 | PDOC.PAIN_ITS ---
Date of service: 04/26/23 Time of Service: 13:00 US Guided Injections Type of Ultrasound Guided Injection: Bilateral Gluteus medius muscle Buttock, Leg Bilateral and Lower back Bilateral Trigger Point Injection Pre-Procedural Evaluation No skin abnormalities over the injection sites Referral Patient has been referred to the [facility] for Bilateral Gluteus medius muscle Buttock Trigger Point Injection for a chief complaint of Upper Buttock pain Pre-Procedural Pain Score Pre-procedural pain score: 7/10 Reason for Exam Upper buttock pain Patient Interview Patient was interviewed and medical record reviewed: Yes There were no contraindications to performing an US guided procedure. Risks,expected side effects, potential benefits were reviewed. The patient consent form was signed and witnessed. Standard time out procedure was performed. Patient Safety No skin issues over the injection sites Procedure Description No sedation given for procedure Patient was placed in the prone position and the following Pulse Ox applied. Pre-Procedure ultrasound scanning performed using a Linear 9 MHz probe Site Preparation Chloroprep Local Anesthesia Skin and subcutaneous tissues anesthetized with: 5 mL of Lidocaine 2%. A 21 G 3.5 Pajunk ultrasound needle was placed under live US guidance using an in-plane approach to the target area. After visualization of the needle tip at the target area Depo-Medrol 40mg per cc were used. Total of Injectate/Medication Note: 2 cc Negative aspiration for blood. [place] were removed without difficulty. Ultrasound images were captured and stored. Patient Mental Status Patient was alert and awake during procedure Vital Signs Vital signs were stable throughout the procedure and recorded by nursing. Follow Up/Discharge Follow up plans and appointments were discussed with patient. Post procedure instruction was given as documented in nursing documentation. Discharge criteria met and patient discharged from [facility]: Yes Post Procedure Pain Post Procedure Pain: 1/10 Patient tolerated procedure well Procedure Outcome: Successful Trigger Point Injection 1-2 muscles Non US Guided Injections Procedure Description Patient was placed in the prone position Post Procedure Pain Post Procedure Pain: 110
== END 2023-04-26 15:33 | disposition home or self-care (01) ==
LOC: PC 15:33
PROVIDERS: PCP Nurse Practitioner Family; Visit Provider Preventive Medicine Occupational Medicine
DX: M54.50 Low back pain, unspecified (principal); M79.18 Myalgia, other site
CPT/HCPCS: 00123; 20552; 20553; 76942; J1030

== ENCOUNTER → 2023-08-03 07:54 | Outpatient (BNVA) | payer OTHER, SELFPAY | PROVIDERS: PCP Nurse Practitioner Adult Health; Referring Provider Nurse Practitioner Adult Health; Visit Provider Student in an Organized Health Care Education/Training Program | DX: M17.11 Unilateral primary osteoarthritis, right knee (principal); M17.12 Unilateral primary osteoarthritis, left knee | CPT/HCPCS: 20610; J1010 ==

== ENCOUNTER 2023-08-22 19:31 | Observation (INO) | payer OTHER, SELFPAY ==
[2023-08-22] VITALS (33 sets, daily range): BP systolic 109–179; BP diastolic 54–158; PULSE 76–137; RESP 10–24; TEMP 36.4–36.6; O2SAT 94–99
--- NOTE | 2023-08-22 19:30 | RT.EKG_ITS ---
APPROVED REPORT Exam: Resting ECG Reason for Exam: light headed Patient Location: E HR:82 bpm ECG Measurements Heart Rate 82 AXIS MO 162 P 44 QRSd 90 QRS 32 QT 372 T 30 QTc 434 Conclusion Sinus rhythm 82 normal axis normal intervals no stemi
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
[2023-08-22 20:04] LABS: Abs Immature Grans 0.03 10^3/uL (0.0-0.06); Absolute Basophil Count 0.02 10^3/uL (0.0-0.2); Absolute Eosinophil Count 0.04 10^3/uL (0.0-0.7); Absolute Lymphocyte Count 2.03 10^3/uL (1.2-3.4); Absolute Monocyte Count 0.76 10^3/uL (0.1-0.8); Absolute Neutrophil Count 4.55 10^3/uL (1.2-6.7); Basophils % 0.3 %; Eosinophils % 0.5 %; HCT 32.1 % (40.0-50.0); HGB 10.6 g/dL (13.5-17.5); Immature Grans % 0.4 %; Lymphocytes % 27.3 %; MCH 31.2 pg (27.0-33.0); MCV 94 fL (80-95); MPV 8.2 fL (8.0-11.0); Monocytes % 10.2 %; Neutrophils % 61.3 %; Platelet Count 274 10^3/uL (130-400); RDW 12.3 % (11.8-14.1); RDW-SD 42.5 fL; WBC 7.43 10^3/uL (4.4-10.8)
[2023-08-22 20:26] LABS: ALT 20 U/L (16-63); AST 23 U/L (15-37); Albumin 3.7 g/dL (3.4-5.0); Alkaline Phosphatase 85 U/L (46-116); Anion Gap 10.1 mmol/L (3-11); BUN 29 mg/dL (7-18); Bilirubin, Total 0.6 mg/dL (0.2-1.0); CO2 27.9 mmol/L (21.0-32.0); Chloride 102 mmol/L (98-107); Creatine Kinase 222 U/L (39-308); Estimated GFR 32.91 (mL/min/1.73m2); Glucose 145 mg/dL (74-106); Magnesium 0.8 mg/dL (1.8-2.4); NT-proBNP 338 pg/mL (<300); Potassium 4.3 mmol/L (3.5-5.1); Sodium 140 mmol/L (136-145); Total Protein 7.8 g/dL (6.4-8.2); Troponin I < 50 ng/L (< or =60)
[2023-08-22] MEDS: MAGNESIUM SULFATE 2 GM/50 ML BAG IVINF (20:43)
[2023-08-22] MEDS: Magnesium Oxide 400 MG TAB PO (21:49)
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
--- NOTE | 2023-08-22 22:45 | DI.RAD_ITS ---
Exam(s) XR CHEST 2V PA LATERAL EXAM: XR CHEST 2V PA LATERAL CLINICAL HISTORY: Intermittent hypotension, diaphoresis with pacemak. TECHNIQUE: 2D digital imaging was performed. COMPARISON: CR CHEST 2 VIEWS PA,LAT from 12/22/[address] LUMBAR SPINE WO from 12/19/2022 FINDINGS: 2 views: Bipolar left subclavian pacemaker noted. Lead tips in RA and right ventricle. Heart size is normal. The mediastinum is not widened. There is slightly increased markings in the left lower lobe. On the lateral view there appears to be some pleural thickening posteriorly. Right lung is clear. No pleural fluid on the right side. No evidence of pulmonary edema. IMPRESSION: Bipolar pacemaker. No pulmonary edema. Pleural thickening noted posteriorly. Cannot exclude loculated pleural effusion on the left side. R ecommend follow-up CT scan. DATA REPOSITORY: RADIATION DOSE DELIVERED:
[2023-08-23] VITALS (7 sets, daily range): BP systolic 127–158; BP diastolic 69–82; PULSE 79–102; RESP 14–16; TEMP 36.4–36.8; O2SAT 95–98
[2023-08-23 00:07] LABS: TSH (W/Ref FT4) 2.74 uIU/mL (0.36-3.74); Troponin I < 50 ng/L (< or =60)
--- NOTE | 2023-08-23 00:11 | DI.VRAD_ITS ---
PROCEDURE INFORMATION: Exam: XR Chest Exam date and time: 08/22/2023 11:44 PM Age: 82 years old Clinical indication: Other: Intermittent hypotension, diaphoresis with pacemak; Prior surgery; Surgery date: 6+ months; Surgery type: Pacemaker TECHNIQUE: Imaging protocol: Radiologic exam of the chest. Views: 2 views. COMPARISON: No relevant prior studies available. FINDINGS: Tubes, catheters and devices: Left chest wall pacing device. Lungs: Unremarkable. No consolidation. Pleural spaces: Unremarkable. No pleural effusion. No pneumothorax. Heart/Mediastinum: Unremarkable. No cardiomegaly. Bones/joints: Unremarkable. IMPRESSION: No acute finding. Dictated and Authenticated by: Jose Lora MD. Ordering:AJAY Segundo MD
[2023-08-23 05:42] LABS: HCT 31.1 % (40.0-50.0); HGB 10.3 g/dL (13.5-17.5); MCH 30.7 pg (27.0-33.0); MCHC 33.1 % (32.0-36.0); MCV 93 fL (80-95); MPV 8.1 fL (8.0-11.0); Platelet Count 286 10^3/uL (130-400); RBC 3.36 10^6/uL (4.36-5.78); RDW 12.4 % (11.8-14.1); RDW-SD 42.4 fL; WBC 7.61 10^3/uL (4.4-10.8)
[2023-08-23 05:59] LABS: ALT 15 U/L (16-63); AST 24 U/L (15-37); Albumin 3.6 g/dL (3.4-5.0); Alkaline Phosphatase 84 U/L (46-116); Anion Gap 9.3 mmol/L (3-11); BUN 26 mg/dL (7-18); Bilirubin, Total 0.6 mg/dL (0.2-1.0); CO2 27.7 mmol/L (21.0-32.0); CREATININE 1.7 mg/dL (0.70-1.30); Calcium 9.3 mg/dL (8.5-10.1); Chloride 103 mmol/L (98-107); Glucose 105 mg/dL (74-106); Magnesium 1.5 mg/dL (1.8-2.4); Potassium 4.5 mmol/L (3.5-5.1); Sodium 140 mmol/L (136-145); Total Protein 7.5 g/dL (6.4-8.2)
[2023-08-23 06:04] LABS: Troponin I < 50 ng/L (< or =60)
[2023-08-23] MEDS: MAGNESIUM SULFATE 2 GM/50 ML BAG IVINF (07:32)
[2023-08-23] MEDS: Magnesium Oxide 400 MG TAB PO (07:35)
[2023-08-23] MEDS: Lisinopril 20 MG TAB PO (07:36)
[2023-08-23] MEDS: Cyanocobalamin 100 MCG TABLET 1000 MCG PO (07:37)
[2023-08-23] MEDS: Enoxaparin 40 MG/0.4 ML SYR SC (07:39)
[2023-08-23] MEDS: Multivitamin TAB 1 TAB PO (07:39)
[2023-08-23] MEDS: Omeprazole 20 MG CAPCR PO (07:39)
[2023-08-23] MEDS: Normal Saline Flush 10 ML SYR IVP (07:40)
--- NOTE | 2023-08-23 11:36 | PDOC.CMIN ---
Date of service: 08/23/23 Time of Service: 11:36 Care Management Initial Assmt Initial Assessment Reason for Hospitalization: syncope Functional Status/Living Situation Patient Presentation: Partha was sitting up in bed visiting with his daughter Marietta, who is his only child, when CM met with him. He was very pleasant and engaged easily with CM. Partha stated that he planned to go home later today once his Echocardiogram has been read. He admitted there is a playoff game on tonight that he really wants to watch. He was admitted with syncope and hypotension but is feeling much better. 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 Marietta still works there and his did as well before she . Town of Residence: [place], [place] Resides with: Alone Significant Other/Family: [facility] Employment Status: Retired Instrumental Activities of Daily Living (ADLs): Independent Medications Medication Management: No Issues/Barriers identified and Issues/Barriers Physical Functioning/Mobility Assistive Device: none Advance Directives Advance Directives: Do you have an Advance Directive: Y 12/01/22 14:05 AD On File at [facility]: N 12/01/22 14:05 Date Asked 08/22/23 08/23/23 07:41 AD Date Reviewed COLST On File at [facility] COLST Date Scanned Comment: Partha only has a DPOA for Healthcare form completed but not the Advanced Directives forms. He requested a blank copy and was provided with same. Code Status Resuscitation Status Full Code Portal Pt does not currently have a portal and education provided: No Insurance Coverage/Financial Issues Insurance: [facility] Medicare Repalcement ACO Member: No Care Team Visit Care Team Role Provider Type Nanci Sandhu NP Primary Care Provider NURSE PRACTITIONER Delilah Moreno MD Emergency Provider [facility] STAFF PHYSICIAN Sanya Azevedo Admit Provider NON-[facility] STAFF PHYSICIAN Attending Provider Discharge Potential Discharge Needs: PCP F/U Appt Anticipated Barriers to Discharge: None Identified Patient/Family Education Needs: Review discharge instructions, discuss Ask Me Three and Other (activity, limitations, follow up plan) Transportation: Private vehicle Plan: Anticipate Partha will be discharged home with a 30 day cardiac event recorder when medically cleared . He will follow up with his community providers and plan of care and transport with family. CM will follow and continue to assess for discharge needs. 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) CKD (chronic kidney disease) stage 3, GFR 30-59 ml/min (Chronic) Near syncope (Acute) Diaphoresis (Acute) Hypomagnesemia (Acute) Acute hypotension (Acute) Muscle pain (Acute) Spinal stenosis (Acute ~11/2022) CT-lumbar 12/2022 Chronic back pain (Chronic) Balance problems (Acute) Hypomagnesemia (Acute) IFG (impaired fasting glucose) (Chronic) Gout attack (Acute ~08/2022) R 5th digit--elevated uric acid Vitamin B12 deficiency (Acute) Moderate tricuspid regurgitation (Chronic) 06/09/22 echo: mild --> repeat 1-2 years (due: 2024) Degenerative disc disease, lumbar (Chronic) Mild mitral valve regurgitation (Chronic ~2017) 06/09/22 echo: mild --> repeat 3-5 years (due: 2027) Osteoarthritis of left knee (Acute) Osteoarthritis of right knee (Acute) Hiatal hernia (Chronic) 05/08/2018 EGD Unspecified essential hypertension (Chronic 06/27/12) PCEq risk 23%; goal 150/90 Pacemaker (Chronic 08/16/17) Syncope 07/2017 --> 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 Neuropathy (Chronic 08/24/12) R post soulder Iron deficiency anemia (Chronic 11/24/11) neg colonoscopy, EGD Lawler's; Yarelis Oconnell 2011; freq blood donations; chronic, nml Epo, likely 2/2 CKD Chronic kidney disease (Chronic 12/29/16) Candidate for statin therapy due to risk of future cardiovascular event (Chronic 01/05/17) 12/2016 labwork: 10-year ASCVD risk = ~33% --> pt declines statins Medical History Hypocalcemia Lawler's esophagus (~2011) Most recent EGD 05/08/2018: no endoscopic evidence for Lawler's, consider repeat EGD in 2-3 years for surveillance; discussed with pt 07/2021 & he declines further surveillance EGDs Syncope (03/28/11) Initially 2011 with negative workup; recurrent 07/2017 and found to have sinus pause --> PPM placed 07/26/2017 Cervical radiculopathy (10/04/12) HLD (hyperlipidemia) Surgical History Pacemaker (07/26/17) [facility] [place] Endoscopy (05/08/14) Upper GI Dr Graham-[facility] [place] 11/10/15 EGD W/ bx Family History Mother , Parkinson's disease in her 70s Parkinson disease Father , 68yo from [place] Myocardial infarction Heart disease Sister Stroke Cancer Stomach or pancreatic? Social History Smoking/Tobacco Use Status: Never Tobacco: How many years used: 2 Smoking risk assessment performed?: Yes Alcohol Intake: former Drug use: Never Substance use type: does not use Adopted: No Caregiver/Support person: No Foster care: No Housing: house Number of Children: 1 Communication Needs: Corrective Lenses Education Level: college Do you need help understanding health information?: Rarely current occupation: Retired--[employer]; [employer] Pets and animals: Yes Pets and animals: cat(s) Sexually active: No Do you think of yourself as: straight/heterosexual Current gender identity: male Other: What is your relationship status?: How often do you talk on the phone with friends or family?: three or more times per week How often do you get together with friends or relatives?: three or more times per week How often do you attend gnosticist or temple services?: decline to answer Do you belong to any clubs or organized social groups?: yes Panel score (0-1 are the most socially isolated patients): 2 What type of physical activity do you participate in: none Duration: decline to answer Frequency: decline to answer Edna/Pentecostalism: Scientologist Special edna needs: No Seatbelt use: always Helmet use: No (N/A) Drive intox or ride w/intox hire car 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 SDOH(Care Management) Screening Will the Patient Participate in the Screening?: Yes Do you worry about having a steady place to live?: no Problems where you live: no known problems In the past 12 months, have you had to go without electric, gas, oil or water in your home?: no Have you or anyone in your house had to go without enough food to eat?: no Has lack of transportation kept you from medical appointments or from doing things needed for daily living?: no Has anyone in your support network made you feel unsafe for any reason?: no
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
--- NOTE | 2023-08-23 16:50 | CHAPLAIN ---
Partha was waiting to be discharged when I visited. He said he's waiting for papers from the Hospitalist and will be leaving with his daughter. He was pleasant and easily engaged in a conversation.
== END 2023-08-23 17:24 | disposition home or self-care (01) ==
LOC: ER 23:08 → MS 08-23 07:34
PROVIDERS: Admitting Provider Family Medicine; Emergency Provider Emergency Medicine; PCP Nurse Practitioner Adult Health; Visit Provider Family Medicine
DX: I95.9 Hypotension, unspecified (principal); Z95.0 Presence of cardiac pacemaker; I45.19 Other right bundle-branch block; E83.42 Hypomagnesemia; N18.32 Chronic kidney disease, stage 3b; D63.1 Anemia in chronic kidney disease; R73.01 Impaired fasting glucose; G89.29 Other chronic pain; M54.9 Dorsalgia, unspecified; M48.061 Spinal stenosis, lumbar region without neurogenic claudication; I12.9 Hypertensive chronic kidney disease with stage 1 through stage 4 chronic kidney disease, or unspecified chronic kidney disease; E53.8 Deficiency of other specified B group vitamins; M51.36 Other intervertebral disc degeneration, lumbar region; I08.1 Rheumatic disorders of both mitral and tricuspid valves; E78.5 Hyperlipidemia, unspecified; G62.9 Polyneuropathy, unspecified; R61 Generalized hyperhidrosis; R91.8 Other nonspecific abnormal finding of lung field
CPT/HCPCS: 00123; 36415; 36416; 80053; 82550; 82962; 85027; 93005; 93270; 96365; 96366; 96372; 99285; J1650; 71046; 83735; 83880; 84443; 84484; 85025; 93010; 93306; 99223; 99239; G0378; J1815; J3475

== ENCOUNTER 2023-09-07 01:58 | Outpatient (CLI) | payer OTHER, SELFPAY ==
[2023-09-07 07:42] LABS: Anion Gap 7.6 mmol/L (3-11); BUN 28 mg/dL (7-18); CO2 29.4 mmol/L (21.0-32.0); CREATININE 1.7 mg/dL (0.70-1.30); Calcium 9.1 mg/dL (8.5-10.1); Chloride 107 mmol/L (98-107); Glucose 97 mg/dL (74-106); Magnesium 1.1 mg/dL (1.8-2.4); Potassium 4.9 mmol/L (3.5-5.1); Sodium 144 mmol/L (136-145)
== END 2023-09-07 01:59 | disposition home or self-care (01) ==
LOC: LBO 01:58
PROVIDERS: Family Medicine; PCP Nurse Practitioner Adult Health; Referring Provider Nurse Practitioner Adult Health; Visit Provider Nurse Practitioner Adult Health
DX: N18.30 Chronic kidney disease, stage 3 unspecified (principal); E83.42 Hypomagnesemia
CPT/HCPCS: 36415; 80048; 83735

== ENCOUNTER 2023-09-13 11:29 | Outpatient (CLI) | payer OTHER, MEDICARE, SELFPAY ==
[2023-09-13 11:54] VITALS: BP 143/81; PULSE 73; RESP 20; TEMP 36.6; O2SAT 96
[2023-09-13 12:35] VITALS: PULSE 70; O2SAT 98
--- NOTE | 2023-09-13 12:35 | PDOC.PAIN ---
Date of service: 09/13/23 Time of Service: 12:35 US Guided Injections Type of Ultrasound Guided Injection: Bilateral Gluteus medius muscle Buttock Trigger Point Injection Pre-Procedural Evaluation Tenderness to palpation at the upper gluteus medius muscle area bilaterally Referral Patient has been referred to the [facility] for Bilateral Gluteus medius muscle Buttock Trigger Point Injection for a chief complaint of bilateral upper buttocks pain Pre-Procedural Pain Score Pre-procedural pain score: 7/10 Reason for Exam Pain Patient Interview Patient was interviewed and medical record reviewed: Yes There were no contraindications to performing an US guided procedure. Risks,expected side effects, potential benefits were reviewed. The patient consent form was signed and witnessed. Standard time out procedure was performed. Patient Safety No skin abnormalities at the sites to be injected Procedure Description No sedation given for procedure Patient was placed in the prone position and the following Pulse Ox applied. Pre-Procedure ultrasound scanning performed using a Linear 9 MHz probe Site Preparation Chloroprep Local Anesthesia Skin and subcutaneous tissues anesthetized with: 3 mL of Lidocaine 2%. A 21 G 3.5 Pajunk ultrasound needle was placed under live US guidance using an in-plane approach to the target area. After visualization of the needle tip at the target area Depo-Medrol 40mg per cc and Lidocaine 2% were used. Total of Injectate/Medication Note: 2 cc of Depomedrol and 5 cc of 2% Lidocaine Negative aspiration for blood. [place] were removed without difficulty. Ultrasound images were captured and stored. Patient Mental Status Patient was alert and awake during procedure Vital Signs Vital signs were stable throughout the procedure and recorded by nursing. Follow Up/Discharge Follow up plans and appointments were discussed with patient. Post procedure instruction was given as documented in nursing documentation. Discharge criteria met and patient discharged from Pain Management Center: Yes Post Procedure Pain Post Procedure Pain: 0/10 Patient tolerated procedure well Procedure Outcome: Successful Trigger Point Injection 1-2 muscles Non US Guided Injections Procedure Description Patient was placed in the prone position Post Procedure Pain Post Procedure Pain: 0/10
[2023-09-13] MEDS: Lidocaine 2% Pres-Free 5 ML VIAL IJ (12:36)
[2023-09-13] MEDS: Nerve Block Tray 1 EACH MC (12:36)
[2023-09-13] MEDS: methylPREDNISolone ACETATE 40 MG/ML VIAL IJ (12:36)
== END 2023-09-13 11:30 | disposition home or self-care (01) ==
LOC: PC 11:30
PROVIDERS: PCP Nurse Practitioner Adult Health; Visit Provider Preventive Medicine Occupational Medicine
DX: M79.18 Myalgia, other site (principal)
CPT/HCPCS: 20553; J1010

== ENCOUNTER → 2023-09-20 00:30 | Outpatient (CLI) | payer OTHER, SELFPAY ==
--- NOTE | 2023-09-20 07:45 | DI.CT_ITS ---
Exam(s) CT CHEST W EXAM: CT CHEST W CLINICAL HISTORY: pleural thickening,J92.9 TECHNIQUE: Imaging Protocol: Axial computed tomography images with coronal and sagittal reformatted images were created and reviewed CONTRAST MATERIAL: Intravenous: Omnipaque 350 Contrast volume:70 ml. COMPARISON: CT CHEST WITH CONTRAST from 08/22/2008 CR CHEST 2 VIEWS PA,LAT from 12/22/[address] LUMBAR SPINE WO from 12/19/2022 CR,XR XR CHEST 2V PA LATERAL from 08/22/2023 FINDINGS: Pulmonary parenchyma: No consolidation. No dominant measurable mass. Linear scarring left upper lobe . More prominent scarring in the lingula.The lingular scarring appears stable from prior exam of 200 9. There is honeycombing at the inferior left lower lobe. Mild fibrotic changes elsewhere. No sign ificant emphysematous changes. There are some blebs in the posterior medial right lower lobe. Tracheobronchial tree: No bronchiectasis or mucous plugging. Mediastinum and Nani: No dominant adenopathy or fluid collection. Small hiatal hernia. Pleura: Pleural thickening along posterior and lateral aspect of right lower lobe with some calcifica tion. No pleural based mass. No pneumothorax. Heart: The heart is dilated. Coronary artery calcifications are seen. Aorta: Thoracic aorta non-dilated. Mild atherosclerotic changes. Pulmonary arteries: No gross evidence of emboli. Upper abdomen: No acute findings. Bones: Degenerative changes in the spine. Soft tissues: Pacemaker over left pectoral muscle. IMPRESSION: Mild left lower lobe pleural thickening. Stable lingular scarring. Honeycombing in the left lower l obe. No findings to suggest mass or acute infiltrate. RADIATION DOSE DELIVERED: 457.87mGy.cm Total DLP DATA REPOSITORY: All CT scans at this facility are submitted to the National Radiology Data Registry (NRDR) Dose Index Registry (DIR) with the [employer] (ACR). RADIATION OPTIMIZATION: All CT scans at this facility use at least one of these dose optimization te chniques: automated exposure control; mA and/or kV adjustment per patient size (includes targeted exa ms where dose is matched to clinical indication); or iterative reconstruction.
[2023-09-20 14:29] LABS: Abs Immature Grans 0.04 10^3/uL (0.0-0.06); Absolute Basophil Count 0.03 10^3/uL (0.0-0.2); Absolute Eosinophil Count 0.07 10^3/uL (0.0-0.7); Absolute Lymphocyte Count 2.73 10^3/uL (1.2-3.4); Absolute Monocyte Count 1.07 10^3/uL (0.1-0.8); Absolute Neutrophil Count 6.34 10^3/uL (1.2-6.7); Basophils % 0.3 %; Eosinophils % 0.7 %; HCT 33.6 % (40.0-50.0); HGB 11.1 g/dL (13.5-17.5); Immature Grans % 0.4 %; Lymphocytes % 26.6 %; MCH 30.9 pg (27.0-33.0); MCV 94 fL (80-95); Monocytes % 10.4 %; Neutrophils % 61.6 %; Platelet Count 299 10^3/uL (130-400); RBC 3.59 10^6/uL (4.36-5.78); RDW 12.4 % (11.8-14.1); RDW-SD 43.1 fL; WBC 10.28 10^3/uL (4.4-10.8)
[2023-09-20 14:55] LABS: Iron 82 ug/dL (65-175); Total Iron Binding Capacity 274 ug/dL (250-450); Transferrin Sat 30 % (20-55)
[2023-09-20 15:09] LABS: Anion Gap 8.2 mmol/L (3-11); BUN 37 mg/dL (7-18); CO2 27.8 mmol/L (21.0-32.0); CREATININE 1.6 mg/dL (0.70-1.30); Calcium 9.2 mg/dL (8.5-10.1); Chloride 102 mmol/L (98-107); Estimated GFR 43.02 (mL/min/1.73m2); Ferritin 58 ng/mL (26-388); Glucose 107 mg/dL (74-106); Magnesium 1.5 mg/dL (1.8-2.4); Potassium 4.7 mmol/L (3.5-5.1); Sodium 138 mmol/L (136-145); Vitamin B12 696 pg/mL (193-986)
[2023-09-20] MEDS: Normal Saline - Diluent 50 ML VIAL IJ (15:14)
[2023-09-20] MEDS: Omnipaque 350 MG/ML 100 ML BTL IJ (15:14)
== END ==
PROVIDERS: Emergency Medicine; PCP Nurse Practitioner Adult Health; Visit Provider Nurse Practitioner Adult Health
DX: I10 Essential (primary) hypertension (principal); J92.9 Pleural plaque without asbestos; N18.32 Chronic kidney disease, stage 3b; D63.1 Anemia in chronic kidney disease; R55 Syncope and collapse; E83.42 Hypomagnesemia; D64.9 Anemia, unspecified; E53.8 Deficiency of other specified B group vitamins
CPT/HCPCS: 80048; 71260; 82607; 82728; 83540; 83550; 83735; 85025; J3490

== ENCOUNTER 2023-09-25 09:11 | Outpatient (CLI) | payer OTHER, SELFPAY ==
--- NOTE | 2023-09-25 12:29 | W.CARDEVENT ---
Date of service: 09/25/23 Time of Service: 12:29 Cardiac Event Recorder Referring Provider:: Nanci Sandhu Indications:: Syncope Cardiac Event Note: This is a cardiac event monitor. Patient was monitored for 27 days and 2 hours Predominant rhythm was sinus. Average heart rate was 75. Minimum was 58, maximum 137 There was no atrial fibrillation, no high-grade AV block, no pauses greater than 3 seconds Atrial and ventricular ectopic beats were noted Several brief runs of nonsustained ventricular tachycardia (4 beats) were seen There were no apparent patient symptoms
== END 2023-09-25 09:12 | disposition home or self-care (01) ==
LOC: CARDOPNVT 09:11
PROVIDERS: PCP Nurse Practitioner Adult Health; Visit Provider Internal Medicine Cardiovascular Disease
DX: R55 Syncope and collapse (principal); I49.1 Atrial premature depolarization; I49.3 Ventricular premature depolarization; I47.10 Supraventricular tachycardia, unspecified
CPT/HCPCS: 93270; 93272

== ENCOUNTER → 2023-11-06 12:45 | Outpatient (BNVA) | payer OTHER, SELFPAY | PROVIDERS: PCP Nurse Practitioner Adult Health; Referring Provider Nurse Practitioner Adult Health; Visit Provider Student in an Organized Health Care Education/Training Program | DX: M17.0 Bilateral primary osteoarthritis of knee (principal) | CPT/HCPCS: 99213 ==

== ENCOUNTER 2023-12-12 03:13 | Outpatient (CLI) | payer OTHER, SELFPAY ==
[2023-12-12 09:18] LABS: HGB 11.1 g/dL (13.5-17.5); MCH 30.1 pg (27.0-33.0); MCHC 31.7 % (32.0-36.0); MCV 95 fL (80-95); MPV 8.2 fL (8.0-11.0); Platelet Count 321 10^3/uL (130-400); RBC 3.69 10^6/uL (4.36-5.78); RDW 12.5 % (11.8-14.1); RDW-SD 43.8 fL; WBC 7.58 10^3/uL (4.4-10.8)
[2023-12-12 10:23] LABS: Hemoglobin A1C 5.7 % (<5.7)
[2023-12-12 10:41] LABS: Anion Gap 9.3 mmol/L (3-11); BUN 23 mg/dL (7-18); CO2 28.7 mmol/L (21.0-32.0); CREATININE 1.5 mg/dL (0.70-1.30); Chloride 104 mmol/L (98-107); Estimated GFR 46.19 (mL/min/1.73m2); Glucose 109 mg/dL (74-106); Magnesium 1.1 mg/dL (1.8-2.4); Potassium 3.9 mmol/L (3.5-5.1); Sodium 142 mmol/L (136-145); Vitamin B12 663 pg/mL (193-986)
== END 2023-12-12 03:14 | disposition home or self-care (01) ==
LOC: LBO 03:13
PROVIDERS: PCP Nurse Practitioner Adult Health; Referring Provider Nurse Practitioner Adult Health; Visit Provider Nurse Practitioner Adult Health
DX: E53.8 Deficiency of other specified B group vitamins (principal); D50.9 Iron deficiency anemia, unspecified; R73.01 Impaired fasting glucose; E83.42 Hypomagnesemia; N18.32 Chronic kidney disease, stage 3b
CPT/HCPCS: 36415; 80048; 85027; 82607; 83036; 83735

== ENCOUNTER 2024-01-18 09:05 | Outpatient (CLI) | payer OTHER, SELFPAY ==
[2024-01-18 09:22] VITALS: BP 129/66; PULSE 75; RESP 18; TEMP 36.7; O2SAT 97
[2024-01-18 09:49] VITALS: O2SAT 98
[2024-01-18 09:50] VITALS: O2SAT 99
[2024-01-18 10:00] VITALS: O2SAT 98
[2024-01-18 10:10] VITALS: O2SAT 98
[2024-01-18] MEDS: Nerve Block Tray 1 EACH MC (10:19)
[2024-01-18] MEDS: Lidocaine 2% Pres-Free 5 ML VIAL IJ (10:20)
[2024-01-18] MEDS: methylPREDNISolone ACETATE 40 MG/ML VIAL IJ (10:20)
--- NOTE | 2024-01-18 10:41 | PDOC.PAIN_ITS ---
Date of service: 01/18/24 Time of Service: 10:41 US Guided Injections Type of Ultrasound Guided Injection: Bilateral Gluteus medius muscle Buttock and Lower back Bilateral Paraspinous muscle Trigger Point Injection Pre-Procedural Evaluation TTP Referral Patient has been [facility] to the [facility] for Bilateral Gluteus medius muscle Buttock and Bilateral Paraspinous muscle Lower back Trigger Point Injection for a chief complaint of Low back and buttock pain Pre-Procedural Pain Score Pre-procedural pain score: 5/10 Patient Interview Patient was interviewed and medical record reviewed: Yes There were no contraindications to performing an US guided procedure. Risks,expected side effects, potential benefits were reviewed. The patient consent form was signed and witnessed. Standard time out procedure was performed. Patient Safety No skin issues at the proposed injection sites. Procedure Description No sedation given for procedure Patient was placed in the prone position and the following Pulse Ox applied. Pre-Procedure ultrasound scanning performed using a Linear 9 MHz probe Site Preparation Chloroprep Local Anesthesia Skin and subcutaneous tissues anesthetized with: 5 mL of Lidocaine 2%. A 21 G 3.5 Pajunk ultrasound needle was placed under live US guidance using an in-plane approach to the target area. After visualization of the needle tip at the target area Depo-Medrol 40mg per cc and Lidocaine 2% were used. Total of Injectate/Medication Note: 2 cc of Depomedrol and 8 cc of 2% Lidocaine Negative aspiration for blood. [place] were removed without difficulty. Ultrasound images were captured and stored. Patient Mental Status Patient was alert and awake during procedure Vital Signs Vital signs were stable throughout the procedure and recorded by nursing. Follow Up/Discharge Follow up plans and appointments were discussed with patient. Post procedure instruction was given as documented in nursing documentation. Discharge criteria met and patient discharged from [facility]: Yes Post Procedure Pain Post Procedure Pain: 0/10 Patient tolerated procedure well Procedure Outcome: Successful Trigger Point Injection 3+muscles Non US Guided Injections Procedure Description Patient was placed in the prone position Post Procedure Pain Post Procedure Pain: 0/10
== END 2024-01-18 09:06 | disposition home or self-care (01) ==
LOC: PC 09:05
PROVIDERS: PCP Nurse Practitioner Adult Health; Visit Provider Preventive Medicine Occupational Medicine
DX: M79.18 Myalgia, other site (principal)
CPT/HCPCS: 20553; J1010

== ENCOUNTER 2024-05-09 08:52 | Outpatient (CLI) | payer OTHER, SELFPAY ==
[2024-05-09 09:17] VITALS: BP 166/88; PULSE 65; RESP 18; TEMP 36.5; O2SAT 98
[2024-05-09 10:06] VITALS: PULSE 71; O2SAT 97
--- NOTE | 2024-05-09 10:06 | PDOC.PAIN ---
Date of service: 05/09/24 Time of Service: 10:06 US Guided Injections Type of Ultrasound Guided Injection: Bilateral Gluteus medius muscle Buttock and Lower back Bilateral Paraspinous muscle Trigger Point Injection Pre-Procedural Evaluation Low back paraspinal tenderness Referral Patient has been referred to the [facility] for Bilateral Gluteus medius muscle Buttock and Bilateral Paraspinous muscle Lower back Trigger Point Injection for a chief complaint of Low back pain Pre-Procedural Pain Score Pre-procedural pain score: 5/10 Reason for Exam Low back pain Patient Interview Patient was interviewed and medical record reviewed: Yes There were no contraindications to performing an US guided procedure. Risks,expected side effects, potential benefits were reviewed. The patient consent form was signed and witnessed. Standard time out procedure was performed. Patient Safety No skin abnormalities at the proposed injection sites. Procedure Description No sedation given for procedure Patient was placed in the prone position and the following Pulse Ox applied. Pre-Procedure ultrasound scanning performed using a Linear 9 MHz probe Site Preparation Chloroprep Local Anesthesia Skin and subcutaneous tissues anesthetized with: 4 mL of Lidocaine 2%. A 21 G 3.5 Pajunk ultrasound needle was placed under live US guidance using an in-plane approach to the target area. After visualization of the needle tip at the target area Depo-Medrol 40mg per cc and Lidocaine 2% were used. Total of Injectate/Medication Note: 2 cc of Depomedrol and 6 cc of 2% Lidocaine Negative aspiration for blood. [place] were removed without difficulty. Ultrasound images were captured and stored. Patient Mental Status Patient was alert and awake during procedure Vital Signs Vital signs were stable throughout the procedure and recorded by nursing. Follow Up/Discharge Follow up plans and appointments were discussed with patient. Post procedure instruction was given as documented in nursing documentation. Discharge criteria met and patient discharged from [facility] Management Center: Yes Post Procedure Pain Post Procedure Pain: 0/10 Patient tolerated procedure well Procedure Outcome: Successful Non US Guided Injections Procedure Description Patient was placed in the prone position Post Procedure Pain Post Procedure Pain: 0/10 Coding Conscious Sedation used for procedure: No CPT Codes: TPI Single/Multi >3 Muscles - 72495 ([id number] ~G) 50 - BILATERAL PROCEDURE Ultrasound - 74825 ([id number] ~G) 50 - BILATERAL PROCEDURE Additional Codes: Visualization of the needle tip - Ultrasound images captured/stored: Yes ([id number]) Date of Service (18488) Date of service: 05/09/24
[2024-05-09] MEDS: methylPREDNISolone ACETATE 40 MG/ML VIAL IJ (10:07)
[2024-05-09] MEDS: Lidocaine 2% Multi-Dose 20 ML VIAL IJ (10:07)
[2024-05-09] MEDS: Nerve Block Tray 1 EACH MC (10:07)
== END 2024-05-09 08:53 | disposition home or self-care (01) ==
LOC: PC 08:52
PROVIDERS: PCP Nurse Practitioner Adult Health; Visit Provider Preventive Medicine Occupational Medicine
DX: M47.817 Spondylosis without myelopathy or radiculopathy, lumbosacral region (principal)
CPT/HCPCS: 20553; J1010; J2003

== ENCOUNTER 2024-08-22 12:14 | Emergency (ER) | payer MEDICARE, SELFPAY ==
[2024-08-22 12:15] VITALS: BP 164/79; PULSE 87; RESP 18; TEMP 36.6; O2SAT 96
--- NOTE | 2024-08-22 12:15 | DI.RAD_ITS ---
Exam(s) XR SHOULDER RT COMPLETE 2+V EXAM: XR SHOULDER RT COMPLETE 2+V CLINICAL HISTORY: pain s/p fall. TECHNIQUE: 2D digital imaging was performed. COMPARISON: CR,XR XR CHEST 2V PA LATERAL from 08/22/2023 FINDINGS: Four views. There is no evidence of fracture or dislocation nor diminution of the subacromial space. There is a small calcific density adjacent to the greater tuberosity which has more the appearance of calcific rotator cuff tendinitis as opposed to a fracture fragment. There are no obvious significant degenerative changes in the glenohumeral and AC joints. Clavicle is intact. No adjacent rib fractures nor scapular fractures evident. IMPRESSION: Small calcific density adjacent to the greater tuberosity which has more the appearance of calcific tendinitis than an actual fracture fragment. Minimal if any significant degenerative changes in the glenohumeral and AC joints, particularly given this patient's advanced age. DATA REPOSITORY: RADIATION DOSE DELIVERED:
--- NOTE | 2024-08-22 12:28 | ED.GENADUL_ITS ---
Discharge Plan Disposition Patient Disposition: Home Condition: Stable Discharge Details Clinical Impression: Contusion of right shoulder Primary Care Provider: Nanci Sandhu ED Provider: Jose Ayala Home Meds and New Rx's Prescriptions: Continued diclofenac sodium 1 % gel 2 g Topical QID PRN (Reason: pain) Qty: 100 3RF Patient Comments: prn Rx Instructions: Apply a thin film (2 GM) to affected areas up to four times daily as needed for pain. acetaminophen 500 mg tablet 500 - 1,000 mg PO TID PRN (Reason: pain) Qty: 270 3RF multivitamin Tablet 1 tab PO DAILY Qty: 90 Rx Instructions: Takes all year; includes 110mg magnesium Slow-Mag 71.5 mg tablet,delayed release (DR/EC) 143 mg PO DAILY Qty: 180 3RF Patient Comments: not currently taking Rx Instructions: Dose increase 12/2023 omeprazole 20 mg capsule,delayed release(DR/EC) 20 mg PO DAILY Qty: 90 3RF Rx Instructions: Take 20 mg once daily on an empty stomach at least 30 minutes before first meal lisinopril 40 mg tablet See Rx Instructions .ROUTE .COMPLEX Qty: 90 3RF Dose Instruction: TAKE ONE TABLET BY MOUTH EVERY DAY Rx Instructions: TAKE ONE TABLET BY MOUTH EVERY DAY cyanocobalamin (vitamin B-12) 1,000 mcg tablet See Rx Instructions .ROUTE .COMPLEX Qty: 90 3RF Dose Instruction: TAKE ONE TABLET BY MOUTH EVERY DAY Rx Instructions: TAKE ONE TABLET BY MOUTH EVERY DAY Discharge Instructions Additional Instructions: Your x-ray did not show any broken bones. You likely have a bone bruise and possibly could have ligamentous or tendon injuries. Most of these heal with time. If you are not feeling better in a week or 2 follow-up with your primary care provider. If your having pain you can take 1000 mg of acetaminophen every 6 hours as needed. Do not exceed 3000 mg in a 24-hour period. Make sure you are taking your arm out of your sling a few times a day to range her joints. If you feel more ill or have severe worsening pain return to the emergency department for reevaluation. HPI General Mode of arrival: ambulatory . Date/Time Provider Initiated Documentation: 08/22/24 12:23 . Limitations to Documentation: no limitations . Information obtained by: patient . History of Present Illness 83 year old M presents to the emergency department with the chief complaint of right shoulder pain, described as moderate, Quality is described as aching, and is localized to the right and upper extremity. Patient reports no radiation. Patient started experiencing this day(s) (1) and it has been constant. No relieving factors improve symptom(s), No exacerbating factors reported . Patient notes no other symptoms.. Patient did receive the following treatments prior to arrival, none Related Data Home Medications ?Medication ?Instructions ?Recorded ?Confirmed diclofenac sodium 1 % topical gel 2 g topical QID PRN pain #100 grams 02/11/21 08/22/24 acetaminophen 500 mg tablet 500 - 1,000 mg (1 - 2 x 50 0 mg) PO 02/18/22 08/22/24 TID PRN pain #270 tab-caps multivitamin 1 tab PO DAILY ##90 06/22/23 08/22/24 magnesium chloride 71.5 mg 143 mg (2 x 71.5 mg) PO TAO LY #180 12/18/23 08/22/24 (magnesium chloride) tabs tablet,delayed release (Slow-Mag) lisinopril 40 mg tablet See Rx Instructions .Route 0 04/24/24 08/22/24 .COMPLEX #90 tabs omeprazole 20 mg capsule,delayed 20 mg PO DAILY #90 ta b-caps 06/17/24 08/22/24 release cyanocobalamin (vitamin B-12) See Rx Instructions .Rou te 07/15/24 08/22/24 1,000 mcg tablet .COMPLEX #90 tabs Previous Rx's ?Medication ?Instructions ?Recorded diclofenac sodium 1 % topical gel 2 g topical QID PRN pain #100 grams 02/11/21 acetaminophen 500 mg tablet 500 - 1,000 mg (1 - 2 x 50 0 mg) PO 02/18/22 TID PRN pain #270 tab-caps magnesium chloride 71.5 mg 143 mg (2 x 71.5 mg) PO TAO LY #180 12/18/23 (magnesium chloride) tabs tablet,delayed release (Slow-Mag) lisinopril 40 mg tablet See Rx Instructions .Route 0 04/24/24 .COMPLEX #90 tabs omeprazole 20 mg capsule,delayed 20 mg PO DAILY #90 ta b-caps 06/17/24 release cyanocobalamin (vitamin B-12) See Rx Instructions .Rou te 07/15/24 1,000 mcg tablet .COMPLEX #90 tabs Allergies Allergy/AdvReac Type Severity Reaction Status Date / Time peanut Allergy Intermediate sneezes Verified 08/22/24 12:20 hydrochlorothiazide AdvReac Intermediate Other (See Verified 08/22/24 12:20 Comment) General Stated Complaint: Fall/Non TraumaCriteria BERTRAND: 4 Review of Systems All systems reviewed & are unremarkable except as noted in HPI and below Constitutional Constitutional: Denies chills, Denies fever(s) and Denies weakness Cardiovascular Cardiovascular: Denies chest pain and Denies dyspnea Respiratory Respiratory: Denies dyspnea Gastrointestinal Gastrointestinal: Denies abdominal pain, Denies nausea and Denies vomiting Neurologic Neurologic: Denies weakness Exam Const General: no acute distress Orientation: alert HENMT Head: normal to inspection Ears: external ears normal General nose exam: external nose normal Mouth: moist mucous membranes Eyes General: appearance normal, both eyes and all related structures Neck Neck: normal visual inspection Resp Effort & Inspection: normal respiratory effort and able to speak in complete sentences Cardio Rate: regular rate Skin General skin exam: no rashes or lesions noted Neuro General: patient alert and patient oriented x3 Extrem General: capillary refill normal and no cyanosis Psych Mental Status: mental status grossly normal Course Vital Signs Vital signs: Vital Signs Temperature 36.6 C 08/22/24 12:15 Pulse 87 08/22/24 12:15 Respiratory Rate 18 08/22/24 12:15 Blood Pressure 164/79 H 08/22/24 12:15 Pulse Oximetry 96 08/22/24 12:15 Temperature 36.6 C 08/22/24 12:15 Temperature Source Oral 08/22/24 12:15 Pulse 87 08/22/24 12:15 Respiratory Rate 18 08/22/24 12:15 Blood Pressure 164/79 H 08/22/24 12:15 Pulse Oximetry 96 08/22/24 12:15 Oxygen Delivery Method Room Air 08/22/24 12:15 Oxygen Flow Rate 0 08/22/24 12:15 Pain Level 5 08/22/24 12:15 Medical Decision Making 83-year-old male with a history of CKD, hypertension, who comes in with chief complaint of right shoulder pain. He says that he was mowing the lawn yesterday and had a cross clipping device to crop picker clippings behind his tractor he got out to lift it when he was stepping over a pole he tripped and fell landing on his right shoulder. He denies hitting his head or loss of consciousness. He has increased pain today so came here for evaluation. He denies any headache, neck pain, back pain, chest pain, abdominal pain. He has tenderness over the anterior and right lateral shoulder with some swelling. He has limited range of motion due to pain. He has no tenderness elsewhere in the arm. Intact distal pulses and sensation. I suspect fracture versus contusion versus sprain, will obtain x-rays to further evaluate. X-ray shows no acute findings. Patient is stable. Suspect contusion, discussed possibility of having a ligamentous or tendon injury. Will provide him with a sling and he will follow-up with his PCP if pain is not improving over the course of a week or 2. Return precautions given. 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; declined pulm referral or PFTs; no SOB or symptoms Anemia in CKD (chronic kidney disease) (Chronic) CKD (chronic kidney disease) stage 3, GFR 30-59 ml/min (Chronic) Muscle pain (Acute) Spinal stenosis (Acute ~11/2022) CT-lumbar 12/2022 Chronic back pain (Chronic) Hypomagnesemia (Acute) IFG (impaired fasting glucose) (Chronic) Gout attack (Acute ~08/2022) R 5th digit--elevated uric acid Vitamin B12 deficiency (Acute) Moderate tricuspid regurgitation (Chronic) 06/09/22 echo: mild; 2023: moderate Degenerative disc disease, lumbar (Chronic) Mild mitral valve regurgitation (Chronic ~2017) 06/09/22 echo: mild; repeated in 2023 Osteoarthritis of left knee (Acute) Osteoarthritis of right knee (Acute) Hiatal hernia (Chronic) 05/08/2018 EGD Unspecified essential hypertension (Chronic 06/27/12) PCEq risk 23%; goal 150/90 Pacemaker (Chronic 08/16/17) Syncope 07/2017 --> 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 Neuropathy (Chronic 08/24/12) R post soulder Iron deficiency anemia (Chronic 11/24/11) neg colonoscopy, EGD Lawler's; C Kourtney 2011; freq blood donations; chronic, nml Epo, likely 2/2 CKD Candidate for statin therapy due to risk of future cardiovascular event (Chronic 01/05/17) 12/2016 labwork: 10-year ASCVD risk = ~33% --> pt declines statins Medical History (Updated 08/22/24 @ 13:09 by Jose Ayala MD) Near syncope Hypocalcemia Lawler's esophagus (~2011) Most recent EGD 05/08/2018: no endoscopic evidence for Lawler's, consider repeat EGD in 2-3 years for surveillance; discussed with pt 07/2021 & he declines further surveillance EGDs Syncope (03/28/11) Initially 2011 with negative workup; recurrent 07/2017 and found to have sinus pause --> PPM placed 07/26/2017 Cervical radiculopathy (10/04/12) HLD (hyperlipidemia) Surgical History Pacemaker (07/26/17) [facility] [place] (05/08/14) Upper GI Dr Graham-[facility] [place] 11/10/15 EGD W/ bx Family History Mother , Parkinson's disease in her 70s Parkinson disease Father , 68yo from [place] Myocardial infarction Heart disease Sister Stroke Cancer Stomach or pancreatic? Social History Smoking/Tobacco Use Status: Never Tobacco: How many years used: 2 Smoking risk assessment performed?: Yes Alcohol Intake: former Drug use: Never Substance use type: does not use Adopted: No Caregiver/Support person: No Foster care: No Housing: house Number of Children: 1 Communication Needs: Corrective Lenses Education Level: college Do you need help understanding health information?: Rarely current occupation: Retired--[employer] Pets and animals: Yes Pets and animals: cat(s) Sexually active: No Do you think of yourself as: straight/heterosexual Current gender identity: male Other: What is your relationship status?: How often do you talk on the phone with friends or family?: three or more times per week How often do you get together with friends or relatives?: three or more times per week How often do you attend scientologist or lutheran services?: decline to answer Do you belong to any clubs or organized social groups?: yes Panel score (0-1 are the most socially isolated patients): 2 What type of physical activity do you participate in: none Duration: decline to answer Frequency: decline to answer Edna/Denominational: Gnosticist Special edna needs: No Seatbelt use: always Helmet use: No (N/A) Drive intox or ride w/intox explosives 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
[2024-08-22 13:27] VITALS: BP 130/59; PULSE 76; RESP 18; O2SAT 96
== END 2024-08-22 13:30 | disposition home or self-care (01) ==
PROVIDERS: Emergency Provider Emergency Medicine; PCP Nurse Practitioner Adult Health
DX: S40.011A Contusion of right shoulder, initial encounter (principal); W19.XXXA Unspecified fall, initial encounter
CPT/HCPCS: 99283; 73030

== ENCOUNTER 2024-08-26 10:51 | Outpatient (CLI) | payer MEDICARE, SELFPAY ==
--- NOTE | 2024-08-26 10:30 | DI.RAD_ITS ---
Exam(s) XR HUMERUS RT EXAM: XR HUMERUS RT CLINICAL HISTORY: ? fracture,PAIN,FELL, CALCIFIC TENDINITIS,M75.31,M25.511. TECHNIQUE: 2D digital imaging was performed of the right humerus. Three images were obtained. AP and lateral views were obtained. COMPARISON: No exams were available for comparison FINDINGS: BONES: The tiny calcification adjacent to the greater tuberosity persists. There is no periosteal reaction to suggest healing fracture. This likely reflects calcific tendinitis. No bony destructive lesion is seen. Visualized portion of elbow and shoulder joints are unremarkable. SOFT TISSUE: Normal. IMPRESSION: No definite acute fracture or dislocation. DATA REPOSITORY: RADIATION DOSE DELIVERED:
--- NOTE | 2024-08-26 10:30 | DI.RAD_ITS ---
Exam(s) XR SHOULDER RT COMPLETE 2+V EXAM: XR SHOULDER RT COMPLETE 2+V CLINICAL HISTORY: ? fx. rt shoulder pain,calcific tendonitis.fell,m75.31,m25.511. TECHNIQUE: 2D digital imaging was performed of the right shoulder. Six images were obtained. AP, [place], Y-view and axillary views were obtained. COMPARISON: CR XR SHOULDER RT COMPLETE 2+V from 08/22/2024 FINDINGS: BONES: The tiny calcific density adjacent to the proximal humerus is unchanged. No periosteal reaction is seen to suggest healing. No other evidence of a fracture is identified. No bony destructive lesion is seen. JOINTS: No dislocation present. The glenohumeral and acromioclavicular joints are well maintained. SOFT TISSUE: Normal. IMPRESSION: Stable calcification adjacent to the humeral head likely reflecting calcific tendinitis. No evidence of a healing fracture or dislocation. DATA REPOSITORY: RADIATION DOSE DELIVERED:
== END 2024-08-26 11:11 ==
LOC: DI 10:52
PROVIDERS: PCP Nurse Practitioner Adult Health; Visit Provider Nurse Practitioner Adult Health
DX: M25.511 Pain in right shoulder (principal); M75.31 Calcific tendinitis of right shoulder; W19.XXXA Unspecified fall, initial encounter
CPT/HCPCS: 73030; 73060

== ENCOUNTER → 2024-09-11 09:45 | Outpatient (BNVA) | payer MEDICARE, SELFPAY | PROVIDERS: PCP Nurse Practitioner Adult Health; Referring Provider Nurse Practitioner Adult Health; Visit Provider Student in an Organized Health Care Education/Training Program | DX: M75.101 Unspecified rotator cuff tear or rupture of right shoulder, not specified as traumatic (principal); S40.011A Contusion of right shoulder, initial encounter; W19.XXXA Unspecified fall, initial encounter; I12.9 Hypertensive chronic kidney disease with stage 1 through stage 4 chronic kidney disease, or unspecified chronic kidney disease; N18.30 Chronic kidney disease, stage 3 unspecified | CPT/HCPCS: 99213; 20610; J1010 ==

== ENCOUNTER 2024-09-23 06:24 | Emergency (ER) | payer MEDICARE, SELFPAY ==
[2024-09-23] VITALS (9 sets, daily range): BP systolic 170–203; BP diastolic 75–87; PULSE 77–90; RESP 18; TEMP 36.6–36.9; O2SAT 94–97
--- NOTE | 2024-09-23 06:38 | ED.GENADUL_ITS ---
Discharge Plan Discharge Details Chief Complaint: Allergic Primary Care Provider: Nanci Sandhu ED Provider: Courtney Anne Home Meds and New Rx's Prescriptions: No Action ibuprofen 200 mg tablet 400 mg PO Q6H PRN diclofenac sodium 1 % gel 2 g Topical QID PRN (Reason: pain) Qty: 100 3RF Patient Comments: prn Rx Instructions: Apply a thin film (2 GM) to affected areas up to four times daily as needed for pain. acetaminophen 500 mg tablet 500 - 1,000 mg PO TID PRN (Reason: pain) Qty: 270 3RF multivitamin Tablet 1 tab PO DAILY Qty: 90 Rx Instructions: Takes all year; includes 110mg magnesium Slow-Mag 71.5 mg tablet,delayed release (DR/EC) 143 mg PO DAILY Qty: 180 3RF Patient Comments: not currently taking Rx Instructions: Dose increase 12/2023 omeprazole 20 mg capsule,delayed release(DR/EC) 20 mg PO DAILY Qty: 90 3RF Rx Instructions: Take 20 mg once daily on an empty stomach at least 30 minutes before first meal lisinopril 40 mg tablet See Rx Instructions .ROUTE .COMPLEX Qty: 90 3RF Dose Instruction: TAKE ONE TABLET BY MOUTH EVERY DAY Rx Instructions: TAKE ONE TABLET BY MOUTH EVERY DAY cyanocobalamin (vitamin B-12) 1,000 mcg tablet See Rx Instructions .ROUTE .COMPLEX Qty: 90 3RF Dose Instruction: TAKE ONE TABLET BY MOUTH EVERY DAY Rx Instructions: TAKE ONE TABLET BY MOUTH EVERY DAY celecoxib [Celebrex] 100 mg capsule 100 mg PO BID PRN (Reason: pain) Qty: 40 0RF HPI General Mode of arrival: ambulatory . Date/Time Provider Initiated Documentation: 09/23/24 06:25 . Limitations to Documentation: no limitations . Information obtained by: patient . HPI Narrative: 83yo M with hx HTN presenting with tongue swelling. Woke this morning at 0400 with swollen tongue. Unable to talk normally. Symptoms are better now than they were earlier. No difficulty breathing, no swelling in throat. No chest pain, shortness of breath, nausea, vomiting, or diarrhea. No hives. No swelling elsewhere. Never had anything like this happen before. Is on lisinopril, has been for 'a long time'. Started celocoxib three days ago, no other medication changes. Otherwise in his usual state of health. Related Data Home Medications ?Medication ?Instructions ?Recorded ?Confirmed diclofenac sodium 1 % topical gel 2 g topical QID PRN pain #100 grams 02/11/21 09/23/24 acetaminophen 500 mg tablet 500 - 1,000 mg (1 - 2 x 50 0 mg) PO 02/18/22 09/23/24 TID PRN pain #270 tab-caps multivitamin 1 tab PO DAILY ##90 06/22/23 09/23/24 magnesium chloride 71.5 mg 143 mg (2 x 71.5 mg) PO TAO LY #180 12/18/23 09/23/24 (magnesium chloride) tabs tablet,delayed release (Slow-Mag) lisinopril 40 mg tablet See Rx Instructions .Route 0 04/24/24 09/23/24 .COMPLEX #90 tabs omeprazole 20 mg capsule,delayed 20 mg PO DAILY #90 ta b-caps 06/17/24 09/23/24 release cyanocobalamin (vitamin B-12) See Rx Instructions .Rou te 07/15/24 09/23/24 1,000 mcg tablet .COMPLEX #90 tabs ibuprofen 200 mg tablet 400 mg PO Q6H PRN 08/26/24 0 09/23/24 Held on 09/23/24. Instructions: Changed by Provider celecoxib 100 mg capsule (Celebrex) 100 mg PO BID PRN pain #40 caps 09/18/24 09/23/24 Previous Rx's ?Medication ?Instructions ?Recorded diclofenac sodium 1 % topical gel 2 g topical QID PRN pain #100 grams 02/11/21 acetaminophen 500 mg tablet 500 - 1,000 mg (1 - 2 x 50 0 mg) PO 02/18/22 TID PRN pain #270 tab-caps magnesium chloride 71.5 mg 143 mg (2 x 71.5 mg) PO TAO LY #180 12/18/23 (magnesium chloride) tabs tablet,delayed release (Slow-Mag) lisinopril 40 mg tablet See Rx Instructions .Route 0 04/24/24 .COMPLEX #90 tabs omeprazole 20 mg capsule,delayed 20 mg PO DAILY #90 ta b-caps 06/17/24 release cyanocobalamin (vitamin B-12) See Rx Instructions .Rou te 07/15/24 1,000 mcg tablet .COMPLEX #90 tabs celecoxib 100 mg capsule (Celebrex) 100 mg PO BID PRN pain #40 caps 09/18/24 Allergies Allergy/AdvReac Type Severity Reaction Status Date / Time peanut Allergy Intermediate sneezes Verified 09/23/24 06:33 hydrochlorothiazide AdvReac Intermediate Other (See Verified 09/23/24 06:33 Comment) General Stated Complaint: Allergic BERTRAND: 3 Review of Systems Narrative: see HPI Exam Narrative Exam Narrative: General: Alert, well appearing, well nourished, in no acute distress. Dysarthria. Head: Normocephalic, atraumatic Neck: Trachea midline, ?Neck supple. ENT: ?MMM.? Left side of tongue markedly swollen. No other intraoral swelling. Cardiac: ?RRR, no murmurs appreciated Resp: No respiratory distress. CTAB. Abd: ?Non-distended Extremities: ?No deformities.? No peripheral edema. Skin: No hives. Neurologic: GCS 15. ? Moves all extremities freely against gravity Course Vital Signs Vital signs: Vital Signs Temperature 36.6 C 09/23/24 06:29 Pulse 77 09/23/24 06:29 Respiratory Rate 18 09/23/24 06:29 Blood Pressure 188/85 H 09/23/24 06:29 Pulse Oximetry 97 09/23/24 06:29 Temperature 36.6 C 09/23/24 06:29 Temperature Source Oral 09/23/24 06:29 Pulse 77 09/23/24 06:29 Respiratory Rate 18 09/23/24 06:29 Respiratory Effort Normal 09/23/24 06:31 Blood Pressure 188/85 H 09/23/24 06:29 Pulse Oximetry 97 09/23/24 06:29 Pain Level 0 09/23/24 06:29 Medical Decision Making 83yo M with hx HTN, on lisinopril, recently started celocoxib, presenting with angioedema. Started at 0400 this morning, improving since onset. No respiratory distress, chest pain, wheezing, hives, N/V/D. Not anaphalyxis. Marked left sided tongue swelling on exam and dysarthria. Will get IV access, give benadyrl/methylpred/txa. Will avoid epi for now unless worsens. Low threshold for intubation if worsening symptoms. [facility] medical records reviewed including prescribed medications. Reassessed ~5 minutes after arrival while IV access being established; tongue is less swollen and speech improved. Has not received meds yet. Given this, will hold of on TXA for now. On subsequent reassessment swelling and speech continue to improve. Will be signed out to oncoming physician, plan to monitor in ED for resolution/recurrence of symptoms. Quality:SDOH Health Related Social Needs: Health related social needs details N/A Critical Care Time Critical Care Time Total Critical Care Time: 20 Attestation: Due to a high probability of clinically significant, life threatening deterioration, the patient required my highest level of preparedness to intervene emergently and I personally spent this critical care time directly and personally managing the patient. This critical care time included obtaining a history; examining the patient; pulse oximetry; ordering and review of studies; arranging urgent treatment with development of a management plan; evaluation of patient's response to treatment; frequent reassessment; and, discussions with other providers. This critical care time was performed to assess and manage the high probability of imminent, life-threatening deterioration that could result in multi-organ failure. It was exclusive of separately billable procedures and treating other patients? 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) CKD (chronic kidney disease) stage 3, GFR 30-59 ml/min (Chronic) Muscle pain (Acute) Spinal stenosis (Acute ~11/2022) CT-lumbar 12/2022 Chronic back pain (Chronic) Hypomagnesemia (Acute) IFG (impaired fasting glucose) (Chronic) Gout attack (Acute ~08/2022) R 5th digit--elevated uric acid Vitamin B12 deficiency (Acute) Moderate tricuspid regurgitation (Chronic) 06/09/22 echo: mild; 2023: moderate Degenerative disc disease, lumbar (Chronic) Mild mitral valve regurgitation (Chronic ~2017) 06/09/22 echo: mild; repeated in 2023 Osteoarthritis of left knee (Acute) Osteoarthritis of right knee (Acute) Hiatal hernia (Chronic) 05/08/2018 EGD Unspecified essential hypertension (Chronic 06/27/12) PCEq risk 23%; goal 150/90 Pacemaker (Chronic 08/16/17) Syncope 07/2017 --> 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 Neuropathy (Chronic 08/24/12) R post soulder Iron deficiency anemia (Chronic 11/24/11) neg colonoscopy, EGD Lawler's; C Kourtney 2011; freq blood donations; chronic, nml Epo, likely 2/2 CKD Candidate for statin therapy due to risk of future cardiovascular event (Chronic 01/05/17) 12/2016 labwork: 10-year ASCVD risk = ~33% --> pt declines statins Medical History Near syncope Hypocalcemia Lawler's esophagus (~2011) Most recent EGD 05/08/2018: no endoscopic evidence for Lawler's, consider repeat EGD in 2-3 years for surveillance; discussed with pt 07/2021 & he declines further surveillance EGDs Syncope (03/28/11) Initially 2011 with negative workup; recurrent 07/2017 and found to have sinus pause --> PPM placed 07/26/2017 Cervical radiculopathy (10/04/12) HLD (hyperlipidemia) Surgical History Pacemaker (07/26/17) [facility] [place] Endoscopy (05/08/14) Upper GI Dr Graham-[facility] [place] 11/10/15 EGD W/ bx Family History Mother , Parkinson's disease in her 70s Parkinson disease Father , 68yo from [place] Myocardial infarction Heart disease Sister Stroke Cancer Stomach or pancreatic? Social History Smoking/Tobacco Use Status: Never Tobacco: How many years used: 2 Smoking risk assessment performed?: Yes Alcohol Intake: former Drug use: Never Substance use type: does not use Adopted: No Caregiver/Support person: No Foster care: No Housing: house Number of Children: 1 Communication Needs: Corrective Lenses Education Level: college Do you need help understanding health information?: Rarely current occupation: Retired--[employer] Pets and animals: Yes Pets and animals: cat(s) Sexually active: No Do you think of yourself as: straight/heterosexual Current gender identity: male Other: What is your relationship status?: How often do you talk on the phone with friends or family?: three or more times per week How often do you get together with friends or relatives?: three or more times per week How often do you attend uatsdin or methodist services?: decline to answer Do you belong to any clubs or organized social groups?: yes Panel score (0-1 are the most socially isolated patients): 2 What type of physical activity do you participate in: none Duration: decline to answer Frequency: decline to answer Edna/Hindu: Zoroastrianism Special edna needs: No Seatbelt use: always Helmet use: No (N/A) Drive intox or ride w/intox show horse 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
[2024-09-23] MEDS: methylPREDNISolone SUCC 125 MG VIAL IVP (07:04)
[2024-09-23] MEDS: diphenhydrAMINE 50 MG/ML VIAL IVP (07:04)
--- NOTE | 2024-09-23 07:40 | ED.PROG_ITS ---
Date of service: 09/23/24 Time of Service: 07:41 Medical Decision Making I received signout on this 83-year-old male with history of CKD on lisinopril in the setting of hypertension. He developed angioedema with some tongue swelling. He did not receive epinephrine. He has no signs of anaphylaxis. He will be monitored in the emergency department following methylprednisolone. He has IV access. 8:43 AM Patient remained stable in the emergency department. He had no recurrent tongue swelling. I was in touch with his primary care provider, Nanci Sandhu. Will discontinue him off of his lisinopril and his celecoxib. Will initiate 5 mg amlodipine. Discussion with Nanci Kramer who will help to arrange follow-up. I counseled patient to reach out to his PCP if he developed any dizziness or lightheadedness. Quality:SDOH Health Related Social Needs: Health related social needs details N/A Discharge Plan Disposition Patient Disposition: Home Discharge Details Clinical Impression: Angioedema Primary Care Provider: Nanci Sandhu ED Provider: Dennis Thapa Home Meds and New Rx's Prescriptions: New amlodipine 5 mg tablet 5 mg PO DAILY Qty: 30 0RF Continued ibuprofen 200 mg tablet 400 mg PO Q6H PRN diclofenac sodium 1 % gel 2 g Topical QID PRN (Reason: pain) Qty: 100 3RF Patient Comments: prn Rx Instructions: Apply a thin film (2 GM) to affected areas up to four times daily as needed for pain. acetaminophen 500 mg tablet 500 - 1,000 mg PO TID PRN (Reason: pain) Qty: 270 3RF multivitamin Tablet 1 tab PO DAILY Qty: 90 Rx Instructions: Takes all year; includes 110mg magnesium Slow-Mag 71.5 mg tablet,delayed release (DR/EC) 143 mg PO DAILY Qty: 180 3RF Patient Comments: not currently taking Rx Instructions: Dose increase 12/2023 omeprazole 20 mg capsule,delayed release(DR/EC) 20 mg PO DAILY Qty: 90 3RF Rx Instructions: Take 20 mg once daily on an empty stomach at least 30 minutes before first meal cyanocobalamin (vitamin B-12) 1,000 mcg tablet See Rx Instructions .ROUTE .COMPLEX Qty: 90 3RF Dose Instruction: TAKE ONE TABLET BY MOUTH EVERY DAY Rx Instructions: TAKE ONE TABLET BY MOUTH EVERY DAY Discontinued lisinopril 40 mg tablet See Rx Instructions .ROUTE .COMPLEX Qty: 90 3RF Dose Instruction: TAKE ONE TABLET BY MOUTH EVERY DAY Rx Instructions: TAKE ONE TABLET BY MOUTH EVERY DAY celecoxib [Celebrex] 100 mg capsule 100 mg PO BID PRN (Reason: pain) Qty: 40 0RF Discharge Instructions Instructions: Angioedema caused by JESUS inhibitor medicines Care Plan Goals: You are seen in the emergency department for your tongue swelling. Please dis continue taking your lisinopril and your celecoxib as these medications can cause angioedema. Please follow-up with your primary care provider as you are being started on a new medication to treat high blood pressure called amlodipine. This can make you dizzy and lightheaded and also cause swelling in your legs. If you have any recurrent tongue swelling please return to the emergency department.
[2024-09-23] MEDS: amLODIPine 5 MG TAB PO (08:59)
== END 2024-09-23 10:08 | disposition home or self-care (01) ==
PROVIDERS: Emergency Provider Emergency Medicine; PCP Nurse Practitioner Adult Health
DX: T78.3XXA Angioneurotic edema, initial encounter (principal); T39.395A Adverse effect of other nonsteroidal anti-inflammatory drugs [NSAID], initial encounter; I10 Essential (primary) hypertension; N18.9 Chronic kidney disease, unspecified
CPT/HCPCS: 99284 ×2; 96374; 96375; 00123; J1200; J2919

== ENCOUNTER 2024-10-10 10:57 | Outpatient (CLI) | payer MEDICARE, SELFPAY ==
[2024-10-10] VITALS (7 sets, daily range): BP systolic 145–175; BP diastolic 72–83; PULSE 83–106; RESP 18–20; TEMP 37; O2SAT 91–98
--- NOTE | 2024-10-10 06:00 | DI.RAD_ITS ---
Exam(s) XR PAIN CLINIC LUMBAR SP 2V EXAM: XR PAIN CLINIC LUMBAR SP 2V CLINICAL HISTORY: DX: Lumbar Spondylosis. TECHNIQUE: Fluoroscopy was provided for the referring physician for guidance with performing pain clinic injection procedure. COMPARISON: No exams were available for comparison FINDINGS: Please see procedure note for details. Fluoro time: 47.6 seconds RADIATION DOSE DELIVERED: fortunato Waters=10.8 mGy
--- NOTE | 2024-10-10 14:14 | PDOC.PAIN ---
Date of service: 10/10/24 Time of Service: 14:14 Pain Managment Procedure Note Procedure Note Procedure Note: PROCEDURE NOTE Bilateral Lumbar Medial Branch Blocks Date of Service: October 10, 2024 Patient: Partha Mantilla Provider: Sanya Pelletier DO, MPH Partha Mantilla has been referred to the [facility] for lumbar medial branch blocks. Pre-operative diagnosis: Lumbar Spondylosis without Myelopathy ICD-10 M47.816 Post-operative diagnosis: Same Pre-procedure pain: VAS= 7/10 COMMENTS: I previously evaluated him in the office. His symptoms are unchanged. Van was interviewed and the medical records were reviewed. There were no medical, pharmacologic, radiographic or other structural contraindications to attempting fluoroscopically guided local anesthetic lumbar medial branch blocks. Risks and potential side effects were discussed. I also discussed the potential benefit(s) of the procedure with Partha, and voiced concerns were addressed. After Partha was completely informed about the procedure, the printed consent form was signed. A standard time-out procedure was performed. Partha was placed in the prone position on the fluoroscopy table. Automated blood pressure cuff and pulse oximeter were applied. The skin entry points for approaching the anatomic target points of the segmental medial branches of bilateral L3,L4,L5 were identified with fluoroscopy and marked. The skin at the target site area was thoroughly prepared with Chlorhexadine. The skin was then draped. Next, a 25 gauge 3.5 spinal needle was placed under fluoroscopic guidance down on to the target point (the articular pillar) for each respective segmental medial branch. Position was confirmed in A/P and lateral views. Aspiration revealed no blood or clear fluid. Next, 0.25ml of omnipaque 240 was injected at each level. No contrast following a vascular or neural pattern was visualized under continuous fluoroscopy. Next, 0.25 ml of preservative-free 0.5% bupivicaine was injected at each level. There was no unusual discomfort expressed by Partha. The needles were withdrawn without difficulty. (49 mls of Omnipaque was wasted) Partha was observed and was without hemodynamic, neurologic, or allergic reactions.? Fluoroscopic images were digitally archived. Provacative testing using the Modified Rolle's facet loading test- Left side Right Side Directly before the block VAS (0-10) = 7/10 VAS (0-10) = 7/10 Five minutes after the block VAS (0-10) = 1/10 VAS (0-10) = 1/10 Percentage relief obtained with this diagnostic block 90% 90% Any improved physical functioning directly after the blocks? Able to move his back much easier. Follow up plans and appointments were discussed with Partha. Partha was instructed to keep careful note of how the usual pain was modified by these injections. Specifically, to keep a pain diary for the next 4 hours using a numeric pain scale of 0-10 and report these results. Post procedure instruction was given as documented in the nursing documentation and having met discharge criteria, the patient was [facility] from the [facility]. Based on the medial branches blocked today, if they patient has adequate relief and we are able to proceed to radiofrequency ablation, the treatment should result in the denervation of the bilateral L4-L5 and L5-S1 facet joints. We would expect to denervate a total of 4 facets during the radiofrequency ablation. COMMENTS: No apparent complications. Post-procedure pain: VAS= 1/10 Partha will call back with 0-4 hour post-procedure pain scores. I personally performed the entire procedure. SANYA PELLETIER DO, MPH ABPM&R-subspecialty board certification in Pain Medicine [facility] Coding Conscious Sedation used for procedure: No CPT Codes: LMBB (includes Fluoro) Lumbar/Sacral, 2nd lvl - 01104 ([id number] ~G) LMBB (includes Fluoro) Lumbar/Sacral, single lvl *BILATERAL* - 5839099 ([id number]~G5) Additional Codes: Date of Service (85464) Date of service: 10/10/24 Diagnoses: lumbar spondylosis without spondylosis
[2024-10-10] MEDS: Bupivacaine 0.5% Pres-Free 10 ML VIAL IJ (14:23)
[2024-10-10] MEDS: Omnipaque 240 MG/ML 50 ML BTL IJ (14:23)
[2024-10-10] MEDS: Nerve Block Tray 1 EACH MC (14:23)
== END 2024-10-10 10:58 | disposition home or self-care (01) ==
PROVIDERS: PCP Nurse Practitioner Adult Health; Visit Provider Preventive Medicine Occupational Medicine
DX: M54.50 Low back pain, unspecified (principal); M47.816 Spondylosis without myelopathy or radiculopathy, lumbar region
CPT/HCPCS: 64493; 64494; 72100; J0665; Q9967

== ENCOUNTER 2024-11-07 09:17 | Outpatient (CLI) | payer MEDICARE, SELFPAY ==
--- NOTE | 2024-11-07 06:00 | DI.RAD_ITS ---
Exam(s) XR PAIN CLINIC LUMBAR SP 2V EXAM: XR PAIN CLINIC LUMBAR SP 2V CLINICAL HISTORY: DX: Lumbar Spondylosis TECHNIQUE: 2D and realtime digital imaging was performed. CONTRAST MATERIAL: Refer to procedure report. COMPARISON: No exams were available for comparison FINDINGS: Fluoroscopy was provided for Dr. Pelletier during the performance of a bilateral lumbar medial branch block. Please refer to the procedure report for complete details. Ka,r=12.5 mGy IMPRESSION: RADIATION DOSE DELIVERED: 0.0 0.0 0
[2024-11-07 09:22] VITALS: BP 128/66; PULSE 99; RESP 18; TEMP 36.6; O2SAT 97
[2024-11-07 10:01] VITALS: PULSE 107; O2SAT 92
[2024-11-07 10:03] VITALS: BP 147/75; PULSE 94; RESP 19; O2SAT 96
[2024-11-07 10:10] VITALS: PULSE 94; RESP 24; O2SAT 95
[2024-11-07 10:15] VITALS: BP 146/78; PULSE 91; PULSE 92; RESP 21; O2SAT 94
[2024-11-07 10:19] VITALS: BP 126/71; PULSE 90; RESP 20; O2SAT 93
[2024-11-07] MEDS: Bupivacaine 0.5% Pres-Free 10 ML VIAL IJ (10:25)
[2024-11-07] MEDS: Omnipaque 240 MG/ML 50 ML BTL IJ (10:25)
[2024-11-07] MEDS: Nerve Block Tray 1 EACH MC (10:25)
--- NOTE | 2024-11-07 10:43 | PDOC.PAIN_ITS ---
Date of service: 11/07/24 Time of Service: 10:43 Pain Managment Procedure Note Procedure Note Procedure Note: PROCEDURE NOTE Bilateral Lumbar Medial Branch Blocks #2 Date of Service: November 07, 2024 Patient: Partha Mantilla Provider: Sanya Pelletier DO, MPH Partha Mantilla has been referred to the [facility] for lumbar medial branch blocks. Pre-operative diagnosis: Lumbar Spondylosis without Myelopathy ICD-10 M47.816 Post-operative diagnosis: Same Pre-procedure pain: VAS= 7/10 COMMENTS: He did great with the first LMBB Partha? was interviewed and the medical records were reviewed. There were no medical, pharmacologic, radiographic or other structural contraindications to attempting fluoroscopically guided local anesthetic lumbar medial branch blocks. Risks and potential side effects were discussed. I also discussed the potential benefit(s) of the procedure with Partha, and voiced concerns were addressed. After Partha was completely informed about the procedure, the printed consent form was signed. A standard time-out procedure was performed. Partha was placed in the prone position on the fluoroscopy table. Automated blood pressure cuff and pulse oximeter were applied. The skin entry points for approaching the anatomic target points of the segmental medial branches of bilateral L3,L4,L5 were identified with fluoroscopy and marked. The skin at the target site area was thoroughly prepared with Chlorhexadine. The skin was then draped. Next, a 25 gauge 3.5 spinal needle was placed under fluoroscopic guidance down on to the target point (the articular pillar) for each respective segmental medial branch. Position was confirmed in A/P and lateral views. Aspiration revealed no blood or clear fluid. Next, 0.25ml of omnipaque 240 was injected at each level. No contrast following a vascular or neural pattern was visualized under continuous fluoroscopy. Next, 0.25 ml of preservative-free 0.5% bupivicaine was injected at each level. There was no unusual discomfort expressed by Partha. The needles were withdrawn without difficulty. (49 mls of Omnipaque was wasted) Partha was observed and was without hemodynamic, neurologic, or allergic reactions.? Fluoroscopic images were digitally archived. Provacative testing using the Modified Rolle's facet loading test- Left side Right Side Directly before the block VAS (0-10) = 7/10 VAS (0-10) = 7/10 Five minutes after the block VAS (0-10) = 1/10 VAS (0-10) = 1/10 Percentage relief obtained with this diagnostic block 90% 90% Any improved physical functioning directly after the blocks? Able to move with ease. Follow up plans and appointments were discussed with Partha. Partha was instructed to keep careful note of how the usual pain was modified by these injections. Specifically, to keep a pain diary for the next 4 hours using a numeric pain scale of 0-10 and report these results. Post procedure instruction was given as documented in the nursing documentation and having met discharge criteria, the patient was discharged from the [facility]. Based on the medial branches blocked today, if they patient has adequate relief and we are able to proceed to radiofrequency ablation, the treatment should result in the denervation of the bilateral L4-L5 and L5-S1 facet joints. We would expect to denervate a total of 4 facets during the radiofrequency ablation. COMMENTS: No apparent complications. Post-procedure pain: VAS= 1/10 Partha will call back with 0-4 hour post-procedure pain scores. I personally performed the entire procedure. SANYA PELLETIER DO, MPH ABPM&R-subspecialty board certification in Pain Medicine [facility] Coding Conscious Sedation used for procedure: No CPT Codes: LMBB (includes Fluoro) Lumbar/Sacral, 2nd lvl - 28337 ([id number] ~G) LMBB (includes Fluoro) Lumbar/Sacral, single lvl *BILATERAL* - 9227536 ([id number]~G5) Additional Codes: Date of Service (28975) Date of service: 11/07/24 Diagnoses: lumbosacral spondylosis without myelopathy
== END 2024-11-07 09:18 | disposition home or self-care (01) ==
LOC: PC 09:18
PROVIDERS: PCP Nurse Practitioner Adult Health; Visit Provider Preventive Medicine Occupational Medicine
DX: M54.50 Low back pain, unspecified (principal); M47.816 Spondylosis without myelopathy or radiculopathy, lumbar region
CPT/HCPCS: 64493; 64494; 72100; J0665; Q9967

== ENCOUNTER 2024-12-04 11:46 | Inpatient (IN) | payer MEDICARE, SELFPAY ==
[2024-12-04] VITALS (65 sets, daily range): BP systolic 93–137; BP diastolic 51–94; PULSE 91–156; RESP 15–34; TEMP 36.4–36.8; O2SAT 70–97
--- NOTE | 2024-12-04 11:30 | RT.EKG_ITS ---
APPROVED REPORT Exam: Resting ECG Reason for Exam: sob Patient Location: E HR:152 bpm ECG Measurements Heart Rate 152 AXIS AZ [id number] P [id number] QRSd 84 QRS 43 QT 257 T -83 QTc 374 Conclusion Afib/flut and V-paced complexes...other complexes, A-rate>240 Repolarization abnormality, prob rate related...ST dep, T neg, tachycardia I have reviewed and interpreted ECG and agree with software generated interpretation.
--- NOTE | 2024-12-04 11:45 | DI.RAD_ITS ---
Exam(s) XR PORTABLE CHEST AP EXAM: XR PORTABLE CHEST AP CLINICAL HISTORY: SOb TECHNIQUE: 2D digital imaging was performed of the chest. One image was obtained. An AP view was obtained. COMPARISON: CR,XR XR CHEST 2V PA LATERAL from 08/22/2023 FINDINGS: MEDIASTINUM: Normal. HEART: Normal. The pacing device is stable in position. PULMONARY VASCULATURE: Normal. LUNGS: There are bilateral predominantly perihilar ground-glass opacities. PLEURAL SPACE: There is no right pleural effusion. There is a question of a left pleural effusion. There is no pneumothorax. BONE:Within normal limits for the patient's age. OTHER FINDINGS:Normal. IMPRESSION: Bilateral predominantly perihilar ground-glass opacities. Differential considerations include pulmonary edema, pneumonia including atypical infection such is COVID-19. DATA REPOSITORY: RADIATION DOSE DELIVERED:
[2024-12-04 12:04] LABS: BE (Venous) -6 mmol/L (-2-3); HCO3 (Venous) 19 mmol/L (23-28); O2 Sat (Venous) 59 %; TCO2 (Venous) 19 mmol/L (24-29); pCO2 (Venous) 32 mmHg (41-51); pO2 (Venous) 34 mmHg
[2024-12-04 12:06] LABS: Abs Immature Grans 0.08 10^3/uL (0.0-0.06); HCT 27.2 % (40.0-50.0); HGB 8.6 g/dL (13.5-17.5); Immature Grans % 0.6 %; MCH 26.7 pg (27.0-33.0); MCHC 31.6 % (32.0-36.0); MCV 85 fL (80-95); MPV 8.5 fL (8.0-11.0); Platelet Count 478 10^3/uL (130-400); RBC 3.22 10^6/uL (4.36-5.78); RDW 15.9 % (11.8-14.1); RDW-SD 49.3 fL; WBC 13.26 10^3/uL (4.4-10.8)
[2024-12-04] MEDS: Albuterol/Ipratropium 3 ML UPD VIAL 6 ML UPD (12:10)
[2024-12-04 12:49] LABS: Hypochromasia 2+
[2024-12-04 12:51] LABS: INR 1.3 (0.9-1.1); PTT Activated 32.8 sec (20.6-30.2); Prothrombin Time 12.6 sec (9.1-11.1)
--- NOTE | 2024-12-04 12:52 | ED.GENADUL_ITS ---
Discharge Plan Disposition Patient Disposition: Admit to [facility] Condition: Serious Discharge Details Clinical Impression: Pneumonia, Sepsis, Acute hypoxemic respiratory failure Primary Care Provider: Nanci Sandhu ED Provider: Jaime Palmer Home Meds and New Rx's Prescriptions: No Action ibuprofen 200 mg tablet 400 mg PO Q6H PRN Patient Comments: prn diclofenac sodium 1 % gel 2 g Topical QID PRN (Reason: pain) Qty: 100 3RF Patient Comments: prn Rx Instructions: Apply a thin film (2 GM) to affected areas up to four times daily as needed for pain. acetaminophen 500 mg tablet 500 - 1,000 mg PO TID PRN (Reason: pain) Qty: 270 3RF Patient Comments: prn multivitamin Tablet 1 tab PO DAILY Qty: 90 Rx Instructions: Takes all year; includes 110mg magnesium Slow-Mag 71.5 mg tablet,delayed release (DR/EC) 143 mg PO DAILY Qty: 180 3RF Patient Comments: not currently taking Rx Instructions: Dose increase 12/2023 omeprazole 20 mg capsule,delayed release(DR/EC) 20 mg PO DAILY Qty: 90 3RF Rx Instructions: Take 20 mg once daily on an empty stomach at least 30 minutes before first meal amlodipine 10 mg tablet 10 mg PO DAILY Qty: 90 3RF Rx Instructions: Dose increase amlodipine; BP goal <140/90 cyanocobalamin (vitamin B-12) 1,000 mcg tablet See Rx Instructions .ROUTE .COMPLEX Qty: 90 3RF Dose Instruction: TAKE ONE TABLET BY MOUTH EVERY DAY Rx Instructions: TAKE ONE TABLET BY MOUTH EVERY DAY Blink Gel Tears 0.25 % drops,gel 1 drp ophthalmic (eye) PRN HPI General Date/Time Provider Initiated Documentation: 12/04/24 11:56 . HPI Narrative: 84-year-old male with a past medical history of gout, degenerative disc disease of the lumbar spine, mitral valve regurg, hiatal hernia, pacemaker, hypertension, Lawler's esophagus, high cholesterol, who presents today for evaluation of shortness of breath. Patient states that he began feeling short of breath, more so compared to normal. He has not smoked for over 60 years. He does not have a history of reactive airway disease. He states that at baseline he has not been feeling well for the last 2 months, but starting yesterday things got much worse. When he woke up this morning he was notably short of breath. He has a regular chronic cough in the morning, he states that he often has a lot of phlegm when he wakes up. It was certainly worse this morning compared to normal. He does have a history of significant reflux as well. EMS was called this morning, and on their arrival patient was an oxygen saturation of 70% on room air. He was placed on 5 L nasal cannula, given Solu-Medrol 125 and a DuoNeb. This did bring his oxygen up to the low 90s, but tachypnea and shortness of breath persisted. He denies any fever or chills. He denies any ch est pain. He denies any falls or trauma. No other complaints at this time. He denies any significant swelling in his lower extremities compared to normal. No other complaints at this time. No other modifying factors. Related Data Home Medications ?Medication ?Instructions ?Recorded ?Confirmed diclofenac sodium 1 % topical gel 2 g topical QID PRN pain #100 grams 02/11/21 12/04/24 acetaminophen 500 mg tablet 500 - 1,000 mg (1 - 2 x 50 0 mg) PO 02/18/22 12/04/24 TID PRN pain #270 tab-caps multivitamin 1 tab PO DAILY ##90 06/22/23 12/04/24 magnesium chloride 71.5 mg 143 mg (2 x 71.5 mg) PO TAO LY #180 12/18/23 12/04/24 (magnesium chloride) tabs tablet,delayed release (Slow-Mag) omeprazole 20 mg capsule,delayed 20 mg PO DAILY #90 ta b-caps 06/17/24 12/04/24 release cyanocobalamin (vitamin B-12) See Rx Instructions .Rou te 07/15/24 12/04/24 1,000 mcg tablet .COMPLEX #90 tabs ibuprofen 200 mg tablet 400 mg PO Q6H PRN 08/26/24 0 12/04/24 amlodipine 10 mg tablet 10 mg PO DAILY #90 tabs 09/1212/04/24 polyethylene glycol 400 0.25 % eye 1 drp ophthalmic (e ye) PRN 10/10/24 12/04/24 gel drops (Blink Gel Tears) Previous Rx's ?Medication ?Instructions ?Recorded diclofenac sodium 1 % topical gel 2 g topical QID PRN pain #100 grams 02/11/21 acetaminophen 500 mg tablet 500 - 1,000 mg (1 - 2 x 50 0 mg) PO 02/18/22 TID PRN pain #270 tab-caps magnesium chloride 71.5 mg 143 mg (2 x 71.5 mg) PO TAO LY #180 12/18/23 (magnesium chloride) tabs tablet,delayed release (Slow-Mag) omeprazole 20 mg capsule,delayed 20 mg PO DAILY #90 ta b-caps 06/17/24 release cyanocobalamin (vitamin B-12) See Rx Instructions .Rou te 07/15/24 1,000 mcg tablet .COMPLEX #90 tabs amlodipine 10 mg tablet 10 mg PO DAILY #90 tabs 09/12 04/06 Allergies Allergy/AdvReac Type Severity Reaction Status Date / Time celecoxib (From Celebrex) Allergy Severe Swelling/Ed Verified 12/04/24 11:45 jhon lisinopril Allergy Severe Swelling/Ed Verified 12/04/24 11:45 jhon peanut Allergy Intermediate sneezes Verified 12/04/24 11:45 hydrochlorothiazide AdvReac Intermediate Other (See Verified 12/04/24 11:45 Comment) General Stated Complaint: SOB BERTRAND: 2 Exam Narrative Exam Narrative: 1.Const: Well-nourished, Well-developed, appearing stated age 2.Eyes: PERRL, no conjunctival injection, and symmetrical lids. 3.ENT: Atraumatic external nose and ears. Moist MM. Neck: Symmetric, trachea midline, No thyromegaly. 4.CVS: +S1/S2, Peripheral pulses 2+ and equal in all extremities. Brisk capillary refill in all extremities. 5.RESP: Rhonchorous breath sounds, diminished lung sounds otherwise throughout. Crackles in the bases as well as rhonchi. 6.GI: Soft, Nontender/Nondistended, No hepatosplenomegaly. No guarding or rebound. 7.MSK: Normocephalic/Atraumatic, Extremities w/o deformity or ttp No cyanosis or clubbing, Normal movement of all extremities. Trace pitting edema of the lower extremities. No tenderness or calf tenderness 8.Skin: Warm, Dry. No rashes or lesions. 9.Neuro: health professional II-XII grossly intact. Sensation grossly intact, no focal neurologic deficits. 10.Psych: (AAO) x3. Appropriate mood and affect Course Vital Signs Vital signs: Vital Signs Temperature 36.8 C 12/04/24 11:47 Pulse 148 H 12/04/24 11:47 Respiratory Rate 25 H 12/04/24 11:47 Blood Pressure 103/58 L 12/04/24 11:47 Pulse Oximetry 70 L 12/04/24 11:47 Temperature 36.8 C 12/04/24 12:00 Temperature Source Oral 12/04/24 12:00 Pulse 120 H 12/04/24 12:30 Pulse 128 H 12/04/24 12:30 Respiratory Rate 20 12/04/24 12:31 Respiratory Effort Labored 12/04/24 12:31 Respiratory Depth Normal 12/04/24 12:31 Respiratory Pattern Normal 12/04/24 12:31 Blood Pressure 134/71 12/04/24 12:16 Blood Pressure Mean 89 12/04/24 12:16 Blood Pressure Position Sitting 12/04/24 12:00 Pulse Oximetry 90 L 12/04/24 12:47 Respiratory End-tidal CO2 23 12/04/24 12:10 Oxygen Delivery Method Nasal Cannula 12/04/24 12:47 Oxygen Flow Rate 5 12/04/24 12:47 Pain Level 0 12/04/24 12:00 Lab/Test Results Lab/Test Results: 12/04/24 12:22 Blood Blood Culture - Pending 12/04/24 12:20 Blood Blood Culture - Pending Laboratory Tests Range/Units 12/04/24 11:57 WBC (4.4-10.8) 10^3/uL 13.26 H RBC (4.36-5.78) 10^6/uL 3.22 L Hgb (13.5-17.5) g/dL 8.6 L Hct (40.0-50.0) % 27.2 L MCV (80-95) fL 85 MCH (27.0-33.0) pg 26.7 L MCHC (32.0-36.0) % 31.6 L RDW (11.8-14.1) % 15.9 H Plt Count (130-400) 10^3/uL 478 H MPV (8.0-11.0) fL 8.5 Immature Gran % % 0.6 Neutrophils % % 77.1 Lymphocytes % % 11.6 Monocytes % % 10.3 Eosinophils % % 0.2 Basophils % % 0.2 Nucleated RBC % (0.0-0.3) % 0.0 Absolute Neutrophils (1.2-6.7) 10^3/uL 10.22 H Absolute Lymphocytes (1.2-3.4) 10^3/uL 1.54 Absolute Monocytes (0.1-0.8) 10^3/uL 1.37 H Absolute Eosinophils (0.0-0.7) 10^3/uL 0.03 Absolute Basophils (0.0-0.2) 10^3/uL 0.03 RBC Morphology See Below Hypochromasia 2+ PT Cancelled INR Cancelled APTT Cancelled VBG pH (7.31-7.41) 7.40 VBG pCO2 (41-51) mmHg 32 L VBG pO2 mmHg 34 VBG HCO3 (23-28) mmol/L 19 L VBG Total CO2 (24-29) mmol/L 19 L VBG O2 Saturation % 59 VBG Base Excess (-2-3) mmol/L -6 L Sodium Cancelled Potassium Cancelled Chloride Cancelled Carbon Dioxide Cancelled Anion Gap Cancelled BUN Cancelled Creatinine Cancelled Est GFR (CKD-EPI 2020) Cancelled Glucose Cancelled Calcium Cancelled Total Bilirubin Cancelled AST Cancelled ALT Cancelled Alkaline Phosphatase Cancelled Troponin I Cancelled NT-Pro-B Natriuret Pep Cancelled Total Protein Cancelled Albumin Cancelled Procalcitonin Cancelled Medical Decision Making 84-year-old male with a past medical history of gout, degenerative disc disease of the lumbar spine, mitral valve regurg, hiatal hernia, pacemaker, hypertension, Lawler's esophagus, high cholesterol, who presents today for evaluation of shortness of breath. Patient states that he began feeling short of breath, more so compared to normal. He has not smoked for over 60 years. He does not have a history of reactive airway disease. He states that at baseline he has not been feeling well for the last 2 months, but starting yesterday things got much worse. When he woke up this morning he was notably short of breath. He has a regular chronic cough in the morning, he states that he often has a lot of phlegm when he wakes up. It was certainly worse this morning compared to normal. He does have a history of significant reflux as well. EMS was called this morning, and on their arrival patient was an oxygen saturation of 70% on room air. He was placed on 5 L nasal cannula, given Solu-Medrol 125 and a DuoNeb. This did bring his oxygen up to the low 90s, but tachypnea and shortness of breath persisted. He denies any fever or chills. He denies any chest pain. He denies any falls or trauma. No other complaints at this time. He denies any significant swelling in his lower extremities compared to normal. No other complaints at this time. No other modifying factors. Exam demonstrates evidence of rhonchorous breath sounds, crackles in the bases, minimal trace pitting edema of the lower extremities. Differential is broad but includes aspiration pneumonia, CHF, less likely COPD/reactive airway disease. PE on the differential but less likely. With the tachycardia tachypnea, shortness of breath, and hypoxemia's concern is certainly for sepsis as well. We will evaluate for these etiologies, monitor closely, give 2 additional breathing nebs. Closely reassess. 1:33 PM Laboratory workup shows elevated white count at 13, hemoglobin is dropped to 8.6 compared to his baseline of 10, increased platelet level suggestive of potential hemoconcentration. Suspect hemoglobin to actually be slightly lower. He denies any bloody stools or dark or tarry stools. VBG is surprisingly stable, proBNP 2300. Troponin normal. Procalcitonin still pending. COVID flu and RSV negative. Chest x-ray shows bilaterally predominant perihilar ground glass opacities, concerning for pneumonia. I do wonder if there is a component aspiration that may also be occurring whether it is chronic or acute. With the septic status, will treat with Vanco, Zosyn and doxycycline he feels slightly better after the DuoNeb however he still remains borderline hypoxic 89% on 5 L. We we will do a trial of CPAP to see if the positive pressure is helpful to his current respiratory status, but otherwise he looks impressively stable. Discussed the case with hospitalist Dr. Allison. Will plan for admission. I have extensively reviewed the treatment plan with the patient. I have addressed all patient concerns at this time. I have also discussed the plan with the admitting physician and they agree with the current assessment and plan and have agreed to assume responsibility for the patient. All parties demonstrate verbal understanding and agreement with our assessment and plan at this time. The documentation in this chart was dictated using [employer]ITS dictation software. Please excuse any dictation errors. FINDINGS: MEDIASTINUM: Normal. HEART: Normal. The pacing device is stable in position. PULMONARY VASCULATURE: Normal. LUNGS: There are bilateral predominantly perihilar ground-glass opacities. PLEURAL SPACE: There is no right pleural effusion. There is a question of a left pleural effusion. There is no pneumothorax. BONE:Within normal limits for the patient's age. OTHER FINDINGS:Normal. IMPRESSION: Bilateral predominantly perihilar ground-glass opacities. Differential considerations include pulmonary edema, pneumonia including atypical infection such is COVID-19. 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; declined pulm referral or PFTs; no SOB or symptoms Anemia in CKD (chronic kidney disease) (Chronic) CKD (chronic kidney disease) stage 3, GFR 30-59 ml/min (Chronic) Muscle pain (Acute) Spinal stenosis (Acute ~11/2022) CT-lumbar 12/2022 Chronic back pain (Chronic) Hypomagnesemia (Acute) IFG (impaired fasting glucose) (Chronic) Gout attack (Acute ~08/2022) R 5th digit--elevated uric acid Vitamin B12 deficiency (Acute) Moderate tricuspid regurgitation (Chronic) 06/09/22 echo: mild; 2023: moderate Degenerative disc disease, lumbar (Chronic) Mild mitral valve regurgitation (Chronic ~2017) 06/09/22 echo: mild; repeated in 2023 Osteoarthritis of left knee (Acute) Osteoarthritis of right knee (Acute) Hiatal hernia (Chronic) 05/08/2018 EGD Pacemaker (Chronic 08/16/17) Syncope 07/2017 --> 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 Neuropathy (Chronic 08/24/12) R post soulder Iron deficiency anemia (Chronic 11/24/11) neg colonoscopy, EGD Lawler's; Yarelis Oconnell 2011; freq blood donations; chronic, nml Epo, likely 2/2 CKD Candidate for statin therapy due to risk of future cardiovascular event (Chronic 01/05/17) 12/2016 labwork: 10-year ASCVD risk = ~33% --> pt declines statins Medical History (Updated 12/04/24 @ 14:22 by Jaime Palmer DO) Near syncope Hypocalcemia Lawler's esophagus (~2011) Most recent EGD 05/08/2018: no endoscopic evidence for Lawler's, consider repeat EGD in 2-3 years for surveillance; discussed with pt 07/2021 & he declines further surveillance EGDs Syncope (03/28/11) Initially 2011 with negative workup; recurrent 07/2017 and found to have sinus pause --> PPM placed 07/26/2017 Cervical radiculopathy (10/04/12) HLD (hyperlipidemia) Surgical History [place]07[place]26/[place] [facility] [place] scientific model 7740 serial # [id number] Ventricular lead BS model 7741 ser# [id number] Pulse generator BS model [id number] ser#[id number] Endoscopy (05/08/14) [place] [place] W/ bx Family History Mother , Parkinson's disease in her 70s Parkinson disease Father , 68yo from [place] Myocardial infarction Heart disease Sister Stroke Cancer Stomach or pancreatic? Social History Smoking/Tobacco Use Status: Former Tobacco Use Quit Date: 03/13/1968 Tobacco: How many years used: 2 Smoking risk assessment performed?: Yes Alcohol Intake: former Drug use: Never Substance use type: does not use Adopted: No Caregiver/Support person: No Foster care: No Housing: house Number of Children: 1 Communication Needs: Corrective Lenses Education Level: college Do you need help understanding health information?: Rarely current occupation: Retired--[employer] Pets and animals: Yes Pets and animals: cat(s) Sexually active: No Do you think of yourself as: straight/heterosexual Current gender identity: male Other: What is your relationship status?: How often do you talk on the phone with friends or family?: three or more times per week How often do you get together with friends or relatives?: three or more times per week How often do you attend restorationism or baptism services?: decline to answer Do you belong to any clubs or organized social groups?: yes Panel score (0-1 are the most socially isolated patients): 2 What type of physical activity do you participate in: none Duration: decline to answer Frequency: decline to answer Edna/Jain: Pentecostalism Special edna needs: No Seatbelt use: always Helmet use: No (N/A) Drive intox or ride w/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
[2024-12-04 12:55] LABS: COVID-19 PCR Negative (Negative); RSV PCR Negative (Negative)
[2024-12-04 13:21] LABS: ALT 9 U/L (16-63); AST 20 U/L (15-37); Albumin 2.7 g/dL (3.4-5.0); Alkaline Phosphatase 111 U/L (46-116); Anion Gap 14.6 mmol/L (3-11); BUN 20 mg/dL (7-18); Bilirubin, Total 0.7 mg/dL (0.2-1.0); CO2 21.4 mmol/L (21.0-32.0); Calcium 8.4 mg/dL (8.5-10.1); Chloride 101 mmol/L (98-107); Estimated GFR 34.57 (mL/min/1.73m2); Glucose 156 mg/dL (74-106); NT-proBNP 2392 pg/mL (<300); Potassium 3.8 mmol/L (3.5-5.1); Sodium 137 mmol/L (136-145); Total Protein 8.5 g/dL (6.4-8.2); Troponin I 12 ng/L (<or=76)
[2024-12-04 13:34] LABS: Procalcitonin < 0.10 ng/mL
[2024-12-04] MEDS: PIPERACILLIN/TAZO 4.5 GM in Normal Saline 100 ML IVPB (13:37)
[2024-12-04] MEDS: Normal Saline 1,000 ML 150 ML IV (13:48)
--- NOTE | 2024-12-04 13:49 | HPE_ITS ---
Date of service: 12/04/24 Time of Service: 13:49 Assessment and Plan Assessment and plan (1) Sepsis: Status: Acute Assessment and plan: - Patient meets criteria for sepsis with blood cell count of 13.2, pulse 120, source of infection being community-acquired pneumonia - Does not have any signs of endorgan damage - Started on Vanco, Zosyn and doxycycline in the emergency department - Will continue vancomycin and switch to cefepime as patient has CKD and combination of Vanco and Zosyn can lead to worsening kidney function especially in the setting of sepsis - MRSA swab ordered and if negative will discontinue vancomycin - Follow-up blood cultures (2) CAP (community acquired pneumonia): Status: Acute Assessment and plan: - Presumed source of infection as noted above (3) Acute hypoxemic respiratory failure: Status: Acute Assessment and plan: - Patient reportedly down to 70% on room air - Was only in the low to mid 80s on 6 L nasal cannula prompting placement of CPAP with improvement of O2 on minimal settings - Additionally, patient has anemia with a hemoglobin of 8.1 which may be contributing to poor pulse ox readings - Will follow-up ABG to assess real oxygen saturation (4) Atrial fibrillation with RVR: Status: Acute Assessment and plan: - New diagnosis is as seen on EKG and on telemetry - Rate between 120s to 140 - Patient will be on Lovenox for DVT prophylaxis, will likely need Eliquis at discharge - Will start with 2.5 mg IV Lopressor and if rate shows improvement will start p.o. Lopressor 25 mg p.o. twice daily (5) CKD (chronic kidney disease) stage 3, GFR 30-59 ml/min: Status: Chronic Assessment and plan: - Appears to be at baseline with a creatinine of 1.9 (baseline about 1.7 - Follow-up a.m. BMP (6) GERD (gastroesophageal reflux disease): Status: Chronic Assessment and plan: - Continue home Protonix History of Present Illness History of Present Illness Chief Complaint: shortness of breath Narrative: 84-year-old male with a past medical history of gout, degenerative disc disease, mitral valve regurg, pacemaker, hypertension and Lawler's esophagus who presented emergency department shortness of breath. He stated that he can feeling short of breath earlier in the day which prompted him to present to the emergency department. He states he does not have a history of COPD or emphysema but has not smoked in over 60 years. He also states he has not been feeling well over the last 2 months with things began to feel significantly worse yesterday with worsening shortness of breath this morning. He denies any fevers, lightheadedness, dizziness, chest pain. He does state he has had a cough that is chronic and produces phlegm that usually wakes him up from sleep but this is not changed as of late. In the emergency department the patient was noted as being hypoxic with pulse ox in 70% requiring placement of 6 L nasal cannula. Even after nasal cannula placement pulse ox readings were still in the mid 60s prompting placement on minimal CPAP settings with improvement of pulse ox. Chest x-ray showed right less opacities and findings that may be consistent with an atypical or viral pneumonia however patient was flu and COVID-negative. CBC showed a white blood cell count of 13.2 and patient was found to be tachycardic with a heart rate of 120 with otherwise normal vital signs. Patient was then started on Vanco, Doxy and Zosyn and emergency room provider paged hospitalist for admission for patient with sepsis secondary to community-acquired pneumonia with acute hypoxic respiratory failure. 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; declined pulm referral or PFTs; no SOB or symptoms Anemia in CKD (chronic kidney disease) (Chronic) CKD (chronic kidney disease) stage 3, GFR 30-59 ml/min (Chronic) Muscle pain (Acute) Spinal stenosis (Acute ~11/2022) CT-lumbar 12/2022 Chronic back pain (Chronic) Hypomagnesemia (Acute) IFG (impaired fasting glucose) (Chronic) Gout attack (Acute ~08/2022) R 5th digit--elevated uric acid Vitamin B12 deficiency (Acute) Moderate tricuspid regurgitation (Chronic) 06/09/22 echo: mild; 2023: moderate Degenerative disc disease, lumbar (Chronic) Mild mitral valve regurgitation (Chronic ~2017) 06/09/22 echo: mild; repeated in 2023 Osteoarthritis of left knee (Acute) Osteoarthritis of right knee (Acute) Hiatal hernia (Chronic) 05/08/2018 EGD Pacemaker (Chronic 08/16/17) Syncope 07/2017 --> 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 Neuropathy (Chronic 08/24/12) R post soulder Iron deficiency anemia (Chronic 11/24/11) neg colonoscopy, EGD Lawler's; C Kourtney 2011; freq blood donations; chronic, nml Epo, likely 2/2 CKD Candidate for statin therapy due to risk of future cardiovascular event (Chronic 01/05/17) 12/2016 labwork: 10-year ASCVD risk = ~33% --> pt declines statins Medical History (Updated 12/04/24 @ 16:03 by Norman Allison MD) Near syncope Hypocalcemia Lawler's esophagus (~2011) Most recent EGD 05/08/2018: no endoscopic evidence for Lawler's, consider repeat EGD in 2-3 years for surveillance; discussed with pt 07/2021 & he declines further surveillance EGDs Syncope (03/28/11) Initially 2011 with negative workup; recurrent 07/2017 and found to have sinus pause --> PPM placed 07/26/2017 Cervical radiculopathy (10/04/12) HLD (hyperlipidemia) Surgical History Pacemaker (07/26/17) [facility] [place] [employer] scientific model 7740 serial # [id number] Ventricular lead BS model 7741 ser# [id number] Pulse generator BS model [id number] ser#[id number] Endoscopy (05/08/14) Upper GI Dr Graham-[facility] [place] 11/10/15 EGD W/ bx Family History Mother , Parkinson's disease in her 70s Parkinson disease Father , 68yo from [place] Myocardial infarction Heart disease Sister Stroke Cancer Stomach or pancreatic? Social History Smoking/Tobacco Use Status: Former Tobacco Use Quit Date: 03/13/1968 Tobacco: How many years used: 2 Smoking risk assessment performed?: Yes Alcohol Intake: former Drug use: Never Substance use type: does not use Adopted: No Caregiver/Support person: No Foster care: No Housing: house Number of Children: 1 Communication Needs: Corrective Lenses Education Level: college Do you need help understanding health information?: Rarely current occupation: Retired--[employer]; [email or web address] Pets and animals: Yes Pets and animals: cat(s) Sexually active: No Do you think of yourself as: straight/heterosexual Current gender identity: male Other: What is your relationship status?: How often do you talk on the phone with friends or family?: three or more times per week How often do you get together with friends or relatives?: three or more times per week How often do you attend amish or mormonism services?: decline to answer Do you belong to any clubs or organized social groups?: yes Panel score (0-1 are the most socially isolated patients): 2 What type of physical activity do you participate in: none Duration: decline to answer Frequency: decline to answer Edna/Buddhism: Amish Special edna needs: No Seatbelt use: always Helmet use: No (N/A) Drive intox or ride w/intox transporter 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 Meds Allergies and Home Medications Allergies Allergy/AdvReac Type Severity Reaction Status Date / Time celecoxib (From Celebrex) Allergy Severe Swelling/Ed Verified 12/04/24 11:45 jhon lisinopril Allergy Severe Swelling/Ed Verified 12/04/24 11:45 jhon peanut Allergy Intermediate sneezes Verified 12/04/24 11:45 hydrochlorothiazide AdvReac Intermediate Other (See Verified 12/04/24 11:45 Comment) Home Medications ?Medication ?Instructions ?Recorded ?Confirmed ?Type diclofenac sodium 1 % topical gel 2 g topical QID PRN pain #100 grams 02/11/21 12/04/24 Rx acetaminophen 500 mg tablet 500 - 1,000 mg (1 - 2 x 50 0 mg) PO 02/18/22 12/04/24 Rx TID PRN pain #270 tab-caps multivitamin 1 tab PO DAILY ##90 06/22/23 12/04/24 History magnesium chloride 71.5 mg 143 mg (2 x 71.5 mg) PO TAO LY #180 12/18/23 12/04/24 Rx (magnesium chloride) tabs tablet,delayed release (Slow-Mag) omeprazole 20 mg capsule,delayed 20 mg PO DAILY #90 ta b-caps 06/17/24 12/04/24 Rx release cyanocobalamin (vitamin B-12) See Rx Instructions .Rou te 07/15/24 12/04/24 Rx 1,000 mcg tablet .COMPLEX #90 tabs ibuprofen 200 mg tablet 400 mg PO Q6H PRN 08/26/24 0 12/04/24 History amlodipine 10 mg tablet 10 mg PO DAILY #90 tabs 09/1212/04/24 Rx polyethylene glycol 400 0.25 % eye 1 drp ophthalmic (e ye) PRN 10/10/24 12/04/24 History gel drops (Blink Gel Tears) Exam Narrative Exam Narrative: Well-appearing older gentleman laying in bed in no acute distress, ANO x 4, 5 L high flow nasal cannula in place, heart irregular regular with rates in the 120s to 140s, lungs clear to auscultation bilaterally, abdomen soft, nontender, nondistended Results Labs 12/04/24 11:57 12/04/24 12:25 Labs: Laboratory Results - last 24 hr 12/04/24 12/04/24 12/04/24 11:57 12:03 12:25 WBC 13.26 H RBC 3.22 L Hgb 8.6 L Hct 27.2 L MCV 85 MCH 26.7 L MCHC 31.6 L RDW 15.9 H Plt Count 478 H MPV 8.5 Immature Gran % 0.6 Neutrophils % 77.1 Lymphocytes % 11.6 Monocytes % 10.3 Eosinophils % 0.2 Basophils % 0.2 Nucleated RBC % 0.0 Absolute Neutrophils 10.22 H Absolute Lymphocytes 1.54 Absolute Monocytes 1.37 H Absolute Eosinophils 0.03 Absolute Basophils 0.03 RBC Morphology See Below Hypochromasia 2+ PT Cancelled 12.6 H INR Cancelled 1.3 H APTT Cancelled 32.8 H VBG pH 7.40 VBG pCO2 32 L VBG pO2 34 VBG HCO3 19 L VBG Total CO2 19 L VBG O2 Saturation 59 VBG Base Excess -6 L Sodium Cancelled 137 Potassium Cancelled 3.8 Chloride Cancelled 101 Carbon Dioxide Cancelled 21.4 Anion Gap Cancelled 14.6 H BUN Cancelled 20 H Creatinine Cancelled 1.9 H Est GFR (CKD-EPI 2020) Cancelled 34.57 Glucose Cancelled 156 H Calcium Cancelled 8.4 L Total Bilirubin Cancelled 0.7 AST Cancelled 20 ALT Cancelled 9 L Alkaline Phosphatase Cancelled 111 Troponin I Cancelled 12 NT-Pro-B Natriuret Pep Cancelled 2392 H Total Protein Cancelled 8.5 H Albumin Cancelled 2.7 L Procalcitonin Cancelled < 0.10 COVID-19 Source Nasopharynx SARS-CoV-2 (PCR) Negative Influenza Type A (PCR) Negative Influenza Type B (PCR) Negative RSV (PCR) Negative Last Vital Signs Temp 98.2 F 12/04/24 12:00 Pulse 120 H 12/04/24 13:20 Resp 22 12/04/24 13:20 BP 137/63 12/04/24 13:16 Pulse Ox 95 12/04/24 13:20 Time Spent Time spent with Patient: >75 minutes Time was spent: preparing to see the patient(eg.review tests), obtaining and/or reviewing separately otained hiistory, ordering medications,tests, procedures, referring, communicating with other health care provider, indepentently interpreting results, counseling the patient and care coordination
[2024-12-04 13:53] LABS: BE -6 mmol/L (-2-3); HCO3 17 mmol/L (22-26)
[2024-12-04 13:55] LABS: FIO2 30 %
[2024-12-04 14:02] LABS: Troponin I 14 ng/L (<or=76)
[2024-12-04] MEDS: DOXYCYCLINE 100 MG in Normal Saline 100 ML IVPB (14:09)
[2024-12-04] MEDS: VANCOMYCIN/WATER (PEG) 1.75 GM/350 ML BAG IVPB (14:19)
[2024-12-04 15:59] LABS: Troponin I 20 ng/L (<or=76)
[2024-12-04] MEDS: Metoprolol 5 MG/5 ML VIAL 2.5 MG IVP (16:32)
[2024-12-04] MEDS: CEFEPIME 2 GM in Normal Saline 100 ML IVPB (17:24)
[2024-12-04] MEDS: Normal Saline Flush 10 ML SYR IVP ×2 (17:27→23:47)
[2024-12-04 20:28] LABS: MRSA PCR Negative (Negative)
[2024-12-05] VITALS (47 sets, daily range): BP systolic 92–123; BP diastolic 61–91; PULSE 73–131; RESP 15–27; TEMP 36.3–36.7; O2SAT 76–98
[2024-12-05] MEDS: CEFEPIME 2 GM in Normal Saline 100 ML IVPB ×2 (06:19→17:45)
[2024-12-05 06:56] LABS: HCT 22.7 % (40.0-50.0); HGB 7.3 g/dL (13.5-17.5); MCH 27.1 pg (27.0-33.0); MCHC 32.2 % (32.0-36.0); MCV 84 fL (80-95); MPV 8.4 fL (8.0-11.0); Platelet Count 392 10^3/uL (130-400); RBC 2.69 10^6/uL (4.36-5.78); RDW 15.9 % (11.8-14.1); RDW-SD 48.8 fL; WBC 10.58 10^3/uL (4.4-10.8)
[2024-12-05 07:12] LABS: Anion Gap 15.1 mmol/L (3-11); BUN 31 mg/dL (7-18); CO2 19.9 mmol/L (21.0-32.0); Calcium 8.2 mg/dL (8.5-10.1); Chloride 104 mmol/L (98-107); Estimated GFR 32.51 (mL/min/1.73m2); Glucose 127 mg/dL (74-106); Potassium 4.1 mmol/L (3.5-5.1); Sodium 139 mmol/L (136-145)
[2024-12-05 07:18] LABS: Vancomycin, Random 17.1 ug/mL
--- NOTE | 2024-12-05 09:00 | INITIAL_ITS ---
Date of service: 12/05/24 Time of Service: 09:00 Care Management Initial Assmt Initial Assessment Reason for Hospitalization: Pneumonia Functional Status/Living Situation Patient Presentation: Partha was sitting up in a chair when CM met with him. He was very pleasant in manner and easily engaged with CM. Partha lives in a single family home in [place], [place] He is , his having dies in 2016. Partha has one child, a daughter named Doretha that he is very close to. She lives in an apartment in [facility], however she is the legal arcade games mechanic of his home now. Partha is retired but had an active career working in many different capacities. 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 He is independent at baseline and does not receive any community services. Partha was admitted with pneumonia and sepsis, although the sepsis is now resolved. Partha has CKD and his renal function is close to his baseline. His creatinine tends to be between 1.5 and 1.7 and is now 1.9 to 2.0. Partha is also anemic. His h&h on admission was 27.2/8.6 and is now 22.7/7.3. Stools for OB and iron levels will be checked, per provider. Partha is still requiring high flow nasal oxygen at 10 L/min. He did informed CM that he is feeling much better and that he is really hopeful he will be able to discharge home tomorrow. Town of Residence: [place] [facility] Resides with: Alone Employment Status: Retired Instrumental Activities of Daily Living (ADLs): Independent Medications Medication Management: No Issues/Barriers identified Physical Functioning/Mobility Assistive Device: none Advance Directives Advance Directives: Do you have an Advance Directive: Y , 14:36 AD On File at [facility]: N 11/28/24, 14:36 Date Asked 12/04/24 12/04/24, 11:50 AD Date Reviewed COLST On File at [facility] COLST Date Scanned Code Status Resuscitation Status Full Code Portal Pt does not currently have a portal and education provided: Yes Insurance Coverage/Financial Issues Insurance: [employer] Medicare Replacement Care Team Visit Care Team Role Provider Type Julio Chu MD MD [facility] STAFF PHYSICIAN Nanci Sandhu NP Primary Care Provider NURSE PRACTITIONER Jaime Palmer DO Emergency Provider [facility] STAFF PHYSICIAN Norman Allison MD Admit Provider [facility] STAFF PHYSICIAN Attending Provider Discharge Potential Discharge Needs: PCP F/U Appt Anticipated Barriers to Discharge: None Identified Patient/Family Education Needs: Review discharge instructions, discuss Ask Me Three Transportation: Private vehicle Plan: Anticipate Partha will be discharged home with no new services, when medically cleared. He will follow up with his PCP and plan of care and transport with family. CM will follow and continue to assess for discharge needs. Social Determinants of Health Screening Social Determinants of health last assessed in clinic: 12/05/24 Will the Patient Participate in the Screening?: Yes Do you worry about having a steady place to live?: no Problems where you live: no known problems In the past 12 months, have you had to go without electric, gas, oil or water in your home?: no 1. Within the past 12 months, we worried whether our food would run out before we got money to buy more.: Never true 2. Within the past 12 months, the food we bought just didn't last and we didn't have money to get more.: Never true Has lack of transportation kept you from medical appointments or from doing things needed for daily living?: no Has anyone in your life made you feel unsafe or unsupported?: no How hard is it for you to pay for the very basics like food, housing, medical care, and heating? Would you say it is:: Not hard at all Do you want help finding or keeping work or a job?: I do not need or want help If for any reason you need help with day-to-day activities such as bathing, preparing meals, shopping, managing finances, etc., do you get the help you need?: I don?t need any help How often do you feel lonely or isolated from those around you?: Rarely Do you speak a language other than Sierra Leonean at home?: No Does the patient want assistance with any of the above?: No Health Related Social Needs Health related social needs: feeling lonely/isolated (Z60.8) Health related social needs details: [place] lonely after in 2016, says he had to put her pictures away but lately has been feeling like he could take them back out again. 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; declined pulm referral or PFTs; no SOB or symptoms Anemia in CKD (chronic kidney disease) (Chronic) CKD (chronic kidney disease) stage 3, GFR 30-59 ml/min (Chronic) Muscle pain (Acute) Spinal stenosis (Acute ~11/2022) CT-lumbar 12/2022 Chronic back pain (Chronic) Hypomagnesemia (Acute) IFG (impaired fasting glucose) (Chronic) Gout attack (Acute ~08/2022) R 5th digit--elevated uric acid Vitamin B12 deficiency (Acute) Moderate tricuspid regurgitation (Chronic) 06/09/22 echo: mild; 2023: moderate Degenerative disc disease, lumbar (Chronic) Mild mitral valve regurgitation (Chronic ~2017) 06/09/22 echo: mild; repeated in 2023 Osteoarthritis of left knee (Acute) Osteoarthritis of right knee (Acute) Hiatal hernia (Chronic) 05/08/2018 EGD Pacemaker (Chronic 08/16/17) Syncope 07/2017 --> 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 Neuropathy (Chronic 08/24/12) R post soulder Iron deficiency anemia (Chronic 11/24/11) neg colonoscopy, EGD Lawler's; C Kourtney 2011; freq blood donations; chronic, nml Epo, likely 2/2 CKD Candidate for statin therapy due to risk of future cardiovascular event (Chronic 01/05/17) 12/2016 labwork: 10-year ASCVD risk = ~33% --> pt declines statins Medical History (Updated 12/05/24 @ 12:40 by Julio Chu MD) Near syncope Hypocalcemia Lawler's esophagus (~2011) Most recent EGD 05/08/2018: no endoscopic evidence for Lawler's, consider repeat EGD in 2-3 years for surveillance; discussed with pt 07/2021 & he declines further surveillance EGDs Syncope (03/28/11) Initially 2011 with negative workup; recurrent 07/2017 and found to have sinus pause --> PPM placed 07/26/2017 Cervical radiculopathy (10/04/12) HLD (hyperlipidemia) Surgical History Pacemaker (07/26/17) [facility] [place] [employer] scientific model 7740 serial # [id number] Ventricular lead BS model 7741 ser# [id number] Pulse generator BS model [id number] ser#[id number] Endoscopy (05/08/14) Upper GI Dr Graham-[facility] [place] 11/10/15 EGD W/ bx Family History Mother , Parkinson's disease in her 70s Parkinson disease Father , 68yo from [place] Myocardial infarction Heart disease Sister Stroke Cancer Stomach or pancreatic? Social History Smoking/Tobacco Use Status: Former Tobacco Use Quit Date: 03/13/1968 Tobacco: How many years used: 2 Smoking risk assessment performed?: Yes Alcohol Intake: former Drug use: Never Substance use type: does not use Adopted: No Caregiver/Support person: No Foster care: No Housing: house Number of Children: 1 Communication Needs: Corrective Lenses Education Level: college Do you need help understanding health information?: Rarely current occupation: Retired--[employer]; [employer] Pets and animals: Yes Pets and animals: cat(s) Sexually active: No Do you think of yourself as: straight/heterosexual Current gender identity: male Other: What is your relationship status?: How often do you talk on the phone with friends or family?: three or more times per week How often do you get together with friends or relatives?: three or more times per week How often do you attend sikh or anglican services?: decline to answer Do you belong to any clubs or organized social groups?: yes Panel score (0-1 are the most socially isolated patients): 2 What type of physical activity do you participate in: none Duration: decline to answer Frequency: decline to answer Edna/Methodist: Caodaism Special edna needs: No Seatbelt use: always Helmet use: No (N/A) Drive intox or ride w/intox driver/guide: No Water heater temp set <120 deg: Yes Working smoke detector in home: Yes Fire extinguisher in home: Yes Carbon monox detector in home: Yes Firearms in home: Yes Do you feel safe at home: Yes Do you feel safe in your relationship?: Yes
[2024-12-05] MEDS: Enoxaparin 40 MG/0.4 ML SYR SC (09:36)
[2024-12-05] MEDS: Normal Saline Flush 10 ML SYR IVP ×2 (09:37→19:31)
[2024-12-05] MEDS: Omeprazole 20 MG CAPCR PO (09:37)
--- NOTE | 2024-12-05 12:25 | W.PM.PROGNOT ---
Date of Service Date of service: 12/05/24 Time of Service: 12:25 Assessment and Plan Assessment and plan (1) Sepsis: Status: Acute Assessment and plan: - Patient meets criteria for sepsis with blood cell count of 13.2, pulse 120, source of infection being community-acquired pneumonia - Does not have any signs of endorgan damage - Started on Vanco, Zosyn and doxycycline in the emergency department - Will continue vancomycin and switch to cefepime as patient has CKD and combination of Vanco and Zosyn can lead to worsening kidney function especially in the setting of sepsis - MRSA swab ordered and if negative will discontinue vancomycin - Follow-up blood cultures 12/05/24 MRSA swab is negative so will stop vanc sepsis resolved. Blood cultures pending (2) CAP (community acquired pneumonia): Status: Acute Assessment and plan: - Presumed source of infection as noted above (3) Acute hypoxemic respiratory failure: Status: Acute Assessment and plan: - Patient reportedly down to 70% on room air - Was only in the low to mid 80s on 6 L nasal cannula prompting placement of CPAP with improvement of O2 on minimal settings - Additionally, patient has anemia with a hemoglobin of 8.1 which may be contributing to poor pulse ox readings - Will follow-up ABG to assess real oxygen saturation (4) Atrial fibrillation with RVR: Status: Acute Assessment and plan: - New diagnosis is as seen on EKG and on telemetry - Rate between 120s to 140 - Patient will be on Lovenox for DVT prophylaxis, will likely need Eliquis at discharge - Will start with 2.5 mg IV Lopressor and if rate shows improvement will start p.o. Lopressor 25 mg p.o. twice daily 12/05/24 HR in low 100's but BP is still soft. Monitor for now (5) CKD (chronic kidney disease) stage 3, GFR 30-59 ml/min: Status: Chronic Assessment and plan: - Appears to be at baseline with a creatinine of 1.9 (baseline about 1.7 - Follow-up a.m. BMP 12/05/24 recheck labs in am. UOP measured at 450ml over 4 hours (6) GERD (gastroesophageal reflux disease): Status: Chronic Assessment and plan: - Continue home Protonix (7) Anemia: Status: Chronic Assessment and plan: Hg has dropped from 8.6 to 7.3. Will hem check stool and check iron levels/tibc. Some dilutional effect? Subjective Subjective Interval history since last seen: Pt seen and examined in his room this am. States that his breathing has improved remarkably Exam Narrative Exam Narrative: heent-ncat mmm nc in place neck-no lad no jvd cv-ir/ir pulm-no amu/ speaks in complete sentences [id number] Objective Last Vital Signs Temp 36.3 C L 12/05/24 08:00 Pulse 106 H 12/05/24 10:08 Resp 24 12/05/24 10:08 BP 117/89 12/05/24 10:08 Pulse Ox 88 L 12/05/24 10:31 Laboratory Results - last 24 hr 12/04/24 12/04/24 12/04/24 11:57 12:03 12:25 WBC 13.26 H RBC 3.22 L Hgb 8.6 L Hct 27.2 L MCV 85 MCH 26.7 L MCHC 31.6 L RDW 15.9 H Plt Count 478 H MPV 8.5 Immature Gran % 0.6 Neutrophils % 77.1 Lymphocytes % 11.6 Monocytes % 10.3 Eosinophils % 0.2 Basophils % 0.2 Nucleated RBC % 0.0 Absolute Neutrophils 10.22 H Absolute Lymphocytes 1.54 Absolute Monocytes 1.37 H Absolute Eosinophils 0.03 Absolute Basophils 0.03 RBC Morphology See Below Hypochromasia 2+ PT Cancelled 12.6 H INR Cancelled 1.3 H APTT Cancelled 32.8 H ABG Sample Site ABG pH ABG pCO2 ABG pO2 ABG HCO3 ABG Total CO2 ABG O2 Saturation ABG Base Excess FiO2 Sodium Cancelled 137 Potassium Cancelled 3.8 Chloride Cancelled 101 Carbon Dioxide Cancelled 21.4 Anion Gap Cancelled 14.6 H BUN Cancelled 20 H Creatinine Cancelled 1.9 H Est GFR (CKD-EPI 2020) Cancelled 34.57 Glucose Cancelled 156 H Calcium Cancelled 8.4 L Total Bilirubin Cancelled 0.7 AST Cancelled 20 ALT Cancelled 9 L Alkaline Phosphatase Cancelled 111 Troponin I Cancelled 12 NT-Pro-B Natriuret Pep Cancelled 2392 H Total Protein Cancelled 8.5 H Albumin Cancelled 2.7 L Procalcitonin Cancelled < 0.10 Random Vancomycin COVID-19 Source Nasopharynx SARS-CoV-2 (PCR) Negative Influenza Type A (PCR) Negative Influenza Type B (PCR) Negative RSV (PCR) Negative MRSA (TEM-PCR) 12/04/24 12/04/24 12/04/24 13:28 13:49 15:27 WBC RBC Hgb Hct MCV MCH MCHC RDW Plt Count MPV Immature Gran % Neutrophils % Lymphocytes % Monocytes % Eosinophils % Basophils % Nucleated RBC % Absolute Neutrophils Absolute Lymphocytes Absolute Monocytes Absolute Eosinophils Absolute Basophils RBC Morphology Hypochromasia PT INR APTT ABG Sample Site Left Radial ABG pH 7.47 H ABG pCO2 23 L ABG pO2 66 L ABG HCO3 17 L ABG Total CO2 16 L ABG O2 Saturation 95 ABG Base Excess -6 L FiO2 30 Sodium Potassium Chloride Carbon Dioxide Anion Gap BUN Creatinine Est GFR (CKD-EPI 2020) Glucose Calcium Total Bilirubin AST ALT Alkaline Phosphatase Troponin I 14 20 NT-Pro-B Natriuret Pep Total Protein Albumin Procalcitonin Random Vancomycin COVID-19 Source SARS-CoV-2 (PCR) Influenza Type A (PCR) Influenza Type B (PCR) RSV (PCR) MRSA (TEM-PCR) 12/04/24 12/05/24 17:30 06:12 WBC 10.58 RBC 2.69 L Hgb 7.3 L Hct 22.7 L MCV 84 MCH 27.1 MCHC 32.2 RDW 15.9 H Plt Count 392 MPV 8.4 Immature Gran % Neutrophils % Lymphocytes % Monocytes % Eosinophils % Basophils % Nucleated RBC % Absolute Neutrophils Absolute Lymphocytes Absolute Monocytes Absolute Eosinophils Absolute Basophils RBC Morphology Hypochromasia PT INR APTT ABG Sample Site ABG pH ABG pCO2 ABG pO2 ABG HCO3 ABG Total CO2 ABG O2 Saturation ABG Base Excess FiO2 Sodium 139 Potassium 4.1 Chloride 104 Carbon Dioxide 19.9 L Anion Gap 15.1 H BUN 31 H Creatinine 2.0 H Est GFR (CKD-EPI 2020) 32.51 Glucose 127 H Calcium 8.2 L Total Bilirubin AST ALT Alkaline Phosphatase Troponin I NT-Pro-B Natriuret Pep Total Protein Albumin Procalcitonin Random Vancomycin 17.1 COVID-19 Source SARS-CoV-2 (PCR) Influenza Type A (PCR) Influenza Type B (PCR) RSV (PCR) MRSA (TEM-PCR) Negative Time Spent with Patient Time Spent with Patient: >50 minutes Time was spent: preparing to see the patient(eg.review tests), obtaining and/or reviewing separately otained hiistory, ordering medications,tests, procedures, referring, communicating with other health home child care provider, indepentently interpreting results, counseling the patient and care coordination
[2024-12-05] MEDS: Acetaminophen 325 MG TAB 650 MG PO (18:10)
[2024-12-06] VITALS (55 sets, daily range): BP systolic 101–131; BP diastolic 60–103; PULSE 70–127; RESP 15–28; TEMP 36–37; O2SAT 84–98
[2024-12-06] MEDS: CEFEPIME 2 GM in Normal Saline 100 ML IVPB ×2 (06:28→18:04)
[2024-12-06 06:40] LABS: Abs Immature Grans 0.16 10^3/uL (0.0-0.06); HCT 21.3 % (40.0-50.0); Immature Grans % 0.9 %; MCH 27.5 pg (27.0-33.0); MCHC 32.4 % (32.0-36.0); MCV 85 fL (80-95); MPV 8.7 fL (8.0-11.0); Platelet Count 419 10^3/uL (130-400); RBC 2.51 10^6/uL (4.36-5.78); RDW 15.9 % (11.8-14.1); RDW-SD 48.6 fL; WBC 18.63 10^3/uL (4.4-10.8)
[2024-12-06 06:53] LABS: HGB 6.9 g/dL (13.5-17.5)
[2024-12-06 07:22] LABS: ALT 11 U/L (16-63); AST 27 U/L (15-37); Albumin 2.3 g/dL (3.4-5.0); Alkaline Phosphatase 95 U/L (46-116); Anion Gap 14.6 mmol/L (3-11); BUN 46 mg/dL (7-18); Bilirubin, Total 0.4 mg/dL (0.2-1.0); CO2 19.4 mmol/L (21.0-32.0); Calcium 8.2 mg/dL (8.5-10.1); Chloride 105 mmol/L (98-107); Estimated GFR 34.57 (mL/min/1.73m2); Glucose 106 mg/dL (74-106); Potassium 4.1 mmol/L (3.5-5.1); Sodium 139 mmol/L (136-145); Total Protein 7.4 g/dL (6.4-8.2)
[2024-12-06 07:25] LABS: Magnesium 0.7 mg/dL (1.8-2.4)
[2024-12-06 07:42] LABS: Anisocytosis 2+; Hypochromasia 1+; Microcytosis 1+
[2024-12-06] MEDS: Albuterol/Ipratropium 3 ML UPD VIAL UPD ×2 (08:14→11:28)
--- NOTE | 2024-12-06 08:32 | CMDISCH_ITS ---
Date of service: 12/06/24 Time of Service: 08:32 LACE Index Scoring Tool Questions: Length of Stay (in days): 2 Was the patient admitted via the E.D.?: Yes Comorbidities: Liver or Renal Disease E.D. Visits: 3 Answers: Total Score: 13 Risk of Readmission: High Risk Care Management Discharge Plan Reason for Hospitalization: Pneumonia Discharge Plan: Partha will be discharged home with no new services. He will follow up with his community providers and plan of care and transport with family. Patient/Family Education Needs: Review discharge instructions, discuss Ask Me Three SDOH Health Related Social Needs: Health related social needs lonely/isolated Health related social needs details [place] lonely after in 2016, says he had to put her pictures away but lately has been feeling like he could take them back out again. Health related social needs details: [place] lonely after in 2016, says he had to put her pictures away but lately has been feeling like he could take them back out again.
[2024-12-06] MEDS: Enoxaparin 40 MG/0.4 ML SYR SC (09:57)
[2024-12-06] MEDS: Omeprazole 20 MG CAPCR PO (09:57)
[2024-12-06] MEDS: Normal Saline Flush 10 ML SYR IVP ×2 (09:57→18:05)
[2024-12-06] MEDS: Acetaminophen 325 MG TAB 650 MG PO ×2 (09:58→15:34)
[2024-12-06] MEDS: Sodium Chloride 0.9% for Inhalation 3 ML VIAL UPD ×2 (11:50→19:27)
--- NOTE | 2024-12-06 14:14 | CHAPLAIN ---
Partha was sitting up in the chair when I visited. He told me he'd been out for a walk and was disappointed in the short distance he walked before becoming short of breath. He said he came to the ED because of shortness of breath and he'd hoped working with PT and respiratory therapy yesterday and today would have improved his ability to walk farther. Partha said he's trying to understand this limitation in his brain. Partha lives in [place]. His in 2016 from Alzheimer's.He said he is close to his daughter who works in the main office at the [employer]. I explained my role and offered support.
[2024-12-06] MEDS: MAGNESIUM SULFATE 4 GM/100 ML BAG IV_INF (17:30)
--- NOTE | 2024-12-06 17:38 | W.PM.PROGNOT ---
Date of Service Date of service: 12/06/24 Time of Service: 17:38 Assessment and Plan Assessment and plan (1) Sepsis: Status: Acute Assessment and plan: - Patient meets criteria for sepsis with blood cell count of 13.2, pulse 120, source of infection being community-acquired pneumonia - Does not have any signs of endorgan damage - Started on Vanco, Zosyn and doxycycline in the emergency department - Will continue vancomycin and switch to cefepime as patient has CKD and combination of Vanco and Zosyn can lead to worsening kidney function especially in the setting of sepsis - MRSA swab ordered and if negative will discontinue vancomycin - Follow-up blood cultures 12/05/24 MRSA swab is negative so will stop vanc sepsis resolved. Blood cultures pending 12/06/24 negative thus far (2) CAP (community acquired pneumonia): Status: Acute Assessment and plan: - Presumed source of infection as noted above (3) Acute hypoxemic respiratory failure: Status: Acute Assessment and plan: - Patient reportedly down to 70% on room air - Was only in the low to mid 80s on 6 L nasal cannula prompting placement of CPAP with improvement of O2 on minimal settings - Additionally, patient has anemia with a hemoglobin of 8.1 which may be contributing to poor pulse ox readings - Will follow-up ABG to assess real oxygen saturation (4) Atrial fibrillation with RVR: Status: Acute Assessment and plan: - New diagnosis is as seen on EKG and on telemetry - Rate between 120s to 140 - Patient will be on Lovenox for DVT prophylaxis, will likely need Eliquis at discharge - Will start with 2.5 mg IV Lopressor and if rate shows improvement will start p.o. Lopressor 25 mg p.o. twice daily 12/05/24 HR in low 100's but BP is still soft. Monitor for now (5) CKD (chronic kidney disease) stage 3, GFR 30-59 ml/min: Status: Chronic Assessment and plan: - Appears to be at baseline with a creatinine of 1.9 (baseline about 1.7 - Follow-up a.m. BMP 12/05/24 recheck labs in am. UOP measured at 450ml over 4 hours (6) GERD (gastroesophageal reflux disease): Status: Chronic Assessment and plan: - Continue home Protonix (7) Anemia: Status: Chronic Assessment and plan: Hg has dropped from 8.6 to 7.3. Will hem check stool and check iron levels/tibc. Some dilutional effect? 12/06/24 6.9 hg is noted to be a bit low. Recheck in AM and consider xfusion Subjective Subjective Interval history since last seen: no new complaints, RT with new interventions 2/2 continued O2 requirements Exam Narrative Exam Narrative: heent-ncat mmm nc in place neck-no lad no jvd cv-ir/ir pulm-no amu/ speaks in complete sentences [id number] Objective Last Vital Signs Temp 36.6 C 12/06/24 15:15 Pulse 101 H 12/06/24 17:00 Resp 16 12/06/24 14:02 BP 120/85 12/06/24 16:02 Pulse Ox 90 L 12/06/24 17:00 Laboratory Results - last 24 hr 12/06/24 05:35 WBC 18.63 H RBC 2.51 L Hgb 6.9 L* Hct 21.3 L MCV 85 MCH 27.5 MCHC 32.4 RDW 15.9 H Plt Count 419 H MPV 8.7 Immature Gran % 0.9 Neutrophils % 84.4 Lymphocytes % 6.5 Monocytes % 8.1 Eosinophils % 0.0 Basophils % 0.1 Nucleated RBC % 0.2 Absolute Neutrophils 15.72 H Absolute Lymphocytes 1.21 Absolute Monocytes 1.51 H Absolute Eosinophils 0.00 Absolute Basophils 0.02 RBC Morphology See Below Hypochromasia 1+ Anisocytosis 2+ Microcytosis 1+ Sodium 139 Potassium 4.1 Chloride 105 Carbon Dioxide 19.4 L Anion Gap 14.6 H BUN 46 H Creatinine 1.9 H Est GFR (CKD-EPI 2020) 34.57 Glucose 106 Calcium 8.2 L Magnesium 0.7 L Total Bilirubin 0.4 AST 27 ALT 11 L Alkaline Phosphatase 95 Total Protein 7.4 Albumin 2.3 L Time Spent with Patient Time Spent with Patient: <25 minutes Time was spent: preparing to see the patient(eg.review tests), obtaining and/or reviewing separately otained hiistory, ordering medications,tests, procedures, referring, communicating with other health medicare sales representative, indepentently interpreting results, counseling the patient and care coordination
--- NOTE | 2024-12-06 18:36 | PDOC.CMPRO ---
Date of service: 12/06/24 Time of Service: 18:36 Care Management Progress Note Progress Note Text Progress Note Text: Partha was sitting up in bed when CM met with him. he was watching a rerun of last evenings [employer] game. he admitted he had already seen it but there were no other sports events on at that time. Partha admitted that he was a little discouraged. He walked with PT today but was limited by his shortness of breath. He shared that he had thought he was getting better but after walking 60 feet or so, he could hardly breathe, He said he felt almost as bad as he did on admission. Partha is still requiring supplemental high flow nasal O2 at 10 L/min. He realizes that he may need home oxygen for a while if this continues. Discharge Potential Discharge Needs: PCP F/U Appt Anticipated Barriers to Discharge: Medical Status Patient/Family Education Needs: Review discharge instructions, discuss Ask Me Three Transportation: Private vehicle Plan: Anticipate Partha will be discharged home with no new services, when medically cleared. He will follow up with his PCP and plan of care and transport with family. CM will follow and continue to assess for discharge needs. Social Determinants of Health Screening Social Determinants of health last assessed in clinic: 12/06/24 Will the Patient Participate in the Screening?: Yes Do you worry about having a steady place to live?: no Problems where you live: no known problems In the past 12 months, have you had to go without electric, gas, oil or water in your home?: no 1. Within the past 12 months, we worried whether our food would run out before we got money to buy more.: Never true 2. Within the past 12 months, the food we bought just didn't last and we didn't have money to get more.: Never true Has lack of transportation kept you from medical appointments or from doing things needed for daily living?: no Has anyone in your life made you feel unsafe or unsupported?: no How hard is it for you to pay for the very basics like food, housing, medical care, and heating? Would you say it is:: Not hard at all Do you want help finding or keeping work or a job?: I do not need or want help If for any reason you need help with day-to-day activities such as bathing, preparing meals, shopping, managing finances, etc., do you get the help you need?: I don?t need any help How often do you feel lonely or isolated from those around you?: Rarely Do you speak a language other than [place] at home?: No Does the patient want assistance with any of the above?: No Health Related Social Needs Health related social needs: feeling lonely/isolated (Z60.8) Health related social needs details: [place] lonely after in 2016, says he had to put her pictures away but lately has been feeling like he could take them back out again.
[2024-12-07] VITALS (43 sets, daily range): BP systolic 108–130; BP diastolic 57–94; PULSE 83–131; RESP 16–27; TEMP 36.4–37; O2SAT 84–95
--- NOTE | 2024-12-07 | DI.CT_ITS ---
Exam(s) CT CHEST WO EXAM: CT CHEST WO CLINICAL HISTORY: sob. TECHNIQUE: Imaging protocol: Axial computed tomography images were obtained and coronal and sagittal reformatted images were created and reviewed. Computer aided detection (CAD) was utilized. CONTRAST MATERIAL: Noncontrast COMPARISON: CT CT CHEST W from 09/20/2023 CR XR PORTABLE CHEST AP from 12/04/2024 FINDINGS: Exam is somewhat limited due to motion and arm positioning. Pulmonary parenchyma: Severe bilateral upper and lower lobe interstitial and airspace infiltrates with multifocal areas of sparing. Honeycombing again noted at the left lung base. Multiple blebs are again noted at the medial right lung base. Tracheobronchial tree: No mucous plugging. No bronchiectasis . Pleura: There is chronic left pleural calcification with pleural thickening. There is now a tiny right pleural effusion. No pneumothorax. Aorta: Thoracic aorta non-dilated. Mild atherosclerotic changes. Lymph nodes: Multiple small lymph nodes noted in the mediastinum, consistent with reactive lymph nodes. Bones: Degenerative changes are seen. No evidence of compression fracture. Upper abdomen: Unremarkable. Soft tissues: Unremarkable. Heart: A pericardial effusion is now present, measuring up to 2 cm in thickness. The heart is dilated. A pacemaker is present. Coronary artery calcifications are seen. IMPRESSION: Severe bilateral pulmonary infiltrates. Moderate-sized pericardial effusion. The preliminary [facility] report was reviewed. RADIATION DOSE DELIVERED: Total DLP Total DLP DATA REPOSITORY: All CT scans at this facility are submitted to the National Radiology Data Registry (NRDR) Dose Index Registry (DIR) with the [employer] (ACR). RADIATION OPTIMIZATION: All CT scans at this facility use at least one of these dose optimization techniques: automated exposure control; mA and/or kV adjustment per patient size (includes targeted exams where dose is matched to clinical indication); or iterative reconstruction.
[2024-12-07] MEDS: CEFEPIME 2 GM in Normal Saline 100 ML IVPB ×2 (05:25→18:27)
[2024-12-07] MEDS: Normal Saline Flush 10 ML SYR IVP ×3 (05:25→18:28)
[2024-12-07 06:05] LABS: Abs Immature Grans 0.21 10^3/uL (0.0-0.06); HCT 24.1 % (40.0-50.0); HGB 7.7 g/dL (13.5-17.5); Immature Grans % 1.2 %; MCH 26.9 pg (27.0-33.0); MCHC 32.0 % (32.0-36.0); MCV 84 fL (80-95); MPV 8.4 fL (8.0-11.0); Platelet Count 473 10^3/uL (130-400); RBC 2.86 10^6/uL (4.36-5.78); RDW 16.0 % (11.8-14.1); RDW-SD 49.5 fL; WBC 18.03 10^3/uL (4.4-10.8)
[2024-12-07 06:22] LABS: ALT 17 U/L (16-63); AST 32 U/L (15-37); Albumin 2.4 g/dL (3.4-5.0); Alkaline Phosphatase 113 U/L (46-116); Anion Gap 11.4 mmol/L (3-11); BUN 38 mg/dL (7-18); Bilirubin, Total 0.5 mg/dL (0.2-1.0); CO2 21.6 mmol/L (21.0-32.0); Calcium 8.4 mg/dL (8.5-10.1); Chloride 106 mmol/L (98-107); Estimated GFR 42.49 (mL/min/1.73m2); Glucose 100 mg/dL (74-106); Potassium 3.8 mmol/L (3.5-5.1); Sodium 139 mmol/L (136-145); Total Protein 7.4 g/dL (6.4-8.2)
[2024-12-07] MEDS: Acetaminophen 325 MG TAB 650 MG PO ×3 (06:40→18:25)
[2024-12-07] MEDS: Omeprazole 20 MG CAPCR PO (06:40)
[2024-12-07] MEDS: Enoxaparin 40 MG/0.4 ML SYR SC (09:03)
--- NOTE | 2024-12-07 10:25 | RESPIRATORY ---
Patient transferred from ICU to CT on NKV -CPAP 8, FI02 adjusted to maintain Sp02 between 88-92. Patient placed back on Airvo post transfer. 60%/60L
--- NOTE | 2024-12-07 10:54 | DI.[facility]_ITS ---
PROCEDURE INFORMATION: Exam: CT Chest Without Contrast; Diagnostic Exam date and time: 12/07/2024 10:40 AM Age: 84 years old Clinical indication: Shortness of breath TECHNIQUE: Imaging protocol: Diagnostic computed tomography of the chest without contrast. 3D rendering (Not supervised by radiologist): MIP and/or 3D reconstructed images were created by the technologist. COMPARISON: CT CHEST W 09/20/2023 3:18 PM FINDINGS: Limitations: Images are degraded due to artifact caused by patient motion and arm positioning. Tubes, catheters and devices: Cardiac pacing device. Lungs: Extensive interstitial and airspace opacities throughout all lobes of both lungs. Fibrotic changes in the lungs. Pleural spaces: Left pleural thickening and calcifications. Small right pleural effusion. Heart: Moderate pericardial effusion. Lymph nodes: Nonspecific mediastinal lymph nodes. Vasculature: Arterial calcifications. Gallbladder and biliary ducts: Sludge and/or small calculi in the gallbladder. Kidneys: Right renal cyst. Bones/joints: No acute pertinent abnormality appreciated. Soft tissues: No acute pertinent abnormality appreciated. IMPRESSION: 1. Extensive interstitial and airspace opacities in both lungs suspicious for infection. Edema and inflammation are differential considerations. Follow-up to resolution advised. 2. Additional findings as above. Dictated and Authenticated by: Eusebia Alanis MD. Orderin Vlad Kim MD
--- NOTE | 2024-12-07 15:37 | W.PM.PROGNOT ---
Date of Service Date of service: 12/18/24 Time of Service: 15:37 Assessment and Plan Assessment and plan (1) Sepsis: Status: Acute Assessment and plan: - Patient meets criteria for sepsis with blood cell count of 13.2, pulse 120, source of infection being community-acquired pneumonia - Does not have any signs of endorgan damage - Started on Vanco, Zosyn and doxycycline in the emergency department - Will continue vancomycin and switch to cefepime as patient has CKD and combination of Vanco and Zosyn can lead to worsening kidney function especially in the setting of sepsis - MRSA swab ordered and if negative will discontinue vancomycin - Follow-up blood cultures 12/05/24 MRSA swab is negative so will stop vanc sepsis resolved. Blood cultures pending 12/06/24 negative thus far (2) CAP (community acquired pneumonia): Status: Acute Assessment and plan: - Presumed source of infection as noted above 12/07/24 ct report chest as above: IMPRESSION: 1. Extensive interstitial and airspace opacities in both lungs suspicious for infection. Edema and inflammation are differential considerations. Follow-up to resolution advised. 2. Additional findings as above. Currently on cefepime, broaden coverage? Will check cbc/cmp/procal/esr/crp? (3) Acute hypoxemic respiratory failure: Status: Acute Assessment and plan: - Patient reportedly down to 70% on room air - Was only in the low to mid 80s on 6 L nasal cannula prompting placement of CPAP with improvement of O2 on minimal settings - Additionally, patient has anemia with a hemoglobin of 8.1 which may be contributing to poor pulse ox readings - Will follow-up ABG to assess real oxygen saturation (4) Atrial fibrillation with RVR: Status: Acute Assessment and plan: - New diagnosis is as seen on EKG and on telemetry - Rate between 120s to 140 - Patient will be on Lovenox for DVT prophylaxis, will likely need Eliquis at discharge - Will start with 2.5 mg IV Lopressor and if rate shows improvement will start p.o. Lopressor 25 mg p.o. twice daily 12/05/24 HR in low 100's but BP is still soft. Monitor for now 12/07/24 Will start on eliquis and stop lovenox (5) CKD (chronic kidney disease) stage 3, GFR 30-59 ml/min: Status: Chronic Assessment and plan: - Appears to be at baseline with a creatinine of 1.9 (baseline about 1.7 - Follow-up a.m. BMP 12/05/24 recheck labs in am. UOP measured at 450ml over 4 hours (6) GERD (gastroesophageal reflux disease): Status: Chronic Assessment and plan: - Continue home Protonix (7) Anemia: Status: Chronic Assessment and plan: Hg has dropped from 8.6 to 7.3. Will hem check stool and check iron levels/tibc. Some dilutional effect? 12/06/24 6.9 hg is noted to be a bit low. Recheck in AM and consider xfusion 12/07/24 Hg is currently 7.7 and hemodynamically stable. No need for xfusion at this point Subjective Subjective Interval history since last seen: still with significant oxygen requirements. CT results reviewed Exam Narrative Exam Narrative: heent-ncat mmm nc in place neck-no lad no jvd cv-ir/ir lungs-bilat expirary wheeze no amu speaks in complete sentences abd-sntndbsa ext no cce Objective Last Vital Signs Temp 37 C 12/07/24 08:40 Pulse 109 H 12/07/24 15:00 Resp 25 H 12/07/24 15:00 BP 129/94 H 12/07/24 12:02 Pulse Ox 92 12/07/24 15:00 Laboratory Results - last 24 hr 12/07/24 05:21 WBC 18.03 H RBC 2.86 L Hgb 7.7 L Hct 24.1 L MCV 84 MCH 26.9 L MCHC 32.0 RDW 16.0 H Plt Count 473 H MPV 8.4 Immature Gran % 1.2 Neutrophils % 82.2 Lymphocytes % 8.8 Monocytes % 7.6 Eosinophils % 0.1 Basophils % 0.1 Nucleated RBC % 0.3 Absolute Neutrophils 14.82 H Absolute Lymphocytes 1.59 Absolute Monocytes 1.37 H Absolute Eosinophils 0.02 Absolute Basophils 0.02 Sodium 139 Potassium 3.8 Chloride 106 Carbon Dioxide 21.6 Anion Gap 11.4 H BUN 38 H Creatinine 1.6 H Est GFR (CKD-EPI 2020) 42.49 Glucose 100 Calcium 8.4 L Total Bilirubin 0.5 AST 32 ALT 17 Alkaline Phosphatase 113 Total Protein 7.4 Albumin 2.4 L Time Spent with Patient Time Spent with Patient: 25-34 minutes Time was spent: preparing to see the patient(eg.review tests), obtaining and/or reviewing separately otained hiistory, ordering medications,tests, procedures, referring, communicating with other health respiratory care program director, indepentently interpreting results, counseling the patient and care coordination
[2024-12-07] MEDS: Albuterol/Ipratropium 3 ML UPD VIAL UPD (15:41)
[2024-12-07] MEDS: Sodium Chloride 0.9% for Inhalation 3 ML VIAL UPD (15:41)
[2024-12-07] MEDS: Normal Saline 500 ML IV (18:27)
[2024-12-07 22:22] LABS: Legionella Ag Detection Urine Negative (Negative)
[2024-12-08] VITALS (38 sets, daily range): BP systolic 101–147; BP diastolic 53–130; PULSE 81–133; RESP 18–28; TEMP 36.2–37; O2SAT 85–96
[2024-12-08] MEDS: CEFEPIME 2 GM in Normal Saline 100 ML IVPB ×2 (06:05→18:33)
[2024-12-08 06:40] LABS: Abs Immature Grans 0.16 10^3/uL (0.0-0.06); HCT 24.2 % (40.0-50.0); HGB 7.9 g/dL (13.5-17.5); Immature Grans % 0.9 %; MCH 27.5 pg (27.0-33.0); MCHC 32.6 % (32.0-36.0); MCV 84 fL (80-95); MPV 8.4 fL (8.0-11.0); Platelet Count 430 10^3/uL (130-400); RBC 2.87 10^6/uL (4.36-5.78); RDW 16.0 % (11.8-14.1); RDW-SD 49.1 fL; WBC 17.56 10^3/uL (4.4-10.8)
[2024-12-08 06:47] LABS: ESR 71 mm/hr (0-20)
[2024-12-08 07:18] LABS: ALT 17 U/L (16-63); AST 29 U/L (15-37); Albumin 2.2 g/dL (3.4-5.0); Alkaline Phosphatase 129 U/L (46-116); Anion Gap 12.8 mmol/L (3-11); BUN 29 mg/dL (7-18); Bilirubin, Total 0.6 mg/dL (0.2-1.0); CO2 19.2 mmol/L (21.0-32.0); Calcium 8.8 mg/dL (8.5-10.1); Chloride 106 mmol/L (98-107); Estimated GFR 49.87 (mL/min/1.73m2); Glucose 101 mg/dL (74-106); Potassium 3.7 mmol/L (3.5-5.1); Sodium 138 mmol/L (136-145); Total Protein 7.4 g/dL (6.4-8.2)
[2024-12-08 07:29] LABS: Procalcitonin 0.13 ng/mL
[2024-12-08 07:33] LABS: C-Reactive Protein 20.60 mg/dL (<or=0.5); Magnesium 1.4 mg/dL (1.8-2.4)
[2024-12-08] MEDS: Enoxaparin 40 MG/0.4 ML SYR SC (08:06)
[2024-12-08] MEDS: Normal Saline Flush 10 ML SYR IVP ×3 (08:06→18:35)
[2024-12-08] MEDS: Omeprazole 20 MG CAPCR PO (08:06)
[2024-12-08] MEDS: Acetaminophen 325 MG TAB 650 MG PO ×2 (10:36→17:11)
--- NOTE | 2024-12-08 13:22 | W.PM.PROGNOT ---
Date of Service Date of service: 12/08/24 Time of Service: 13:22 Assessment and Plan Assessment and plan (1) Sepsis: Status: Acute Assessment and plan: - Patient meets criteria for sepsis with blood cell count of 13.2, pulse 120, source of infection being community-acquired pneumonia - Does not have any signs of endorgan damage - Started on Vanco, Zosyn and doxycycline in the emergency department - Will continue vancomycin and switch to cefepime as patient has CKD and combination of Vanco and Zosyn can lead to worsening kidney function especially in the setting of sepsis - MRSA swab ordered and if negative will discontinue vancomycin - Follow-up blood cultures 12/05/24 MRSA swab is negative so will stop vanc sepsis resolved. Blood cultures pending 12/06/24 negative thus far 12/07/24 added azithromycin for atypicals/ ordered mycoplasma pneumo pcr as well as tick and lyme (2) CAP (community acquired pneumonia): Status: Acute Assessment and plan: - Presumed source of infection as noted above 12/07/24 ct report chest as above: IMPRESSION: 1. Extensive interstitial and airspace opacities in both lungs suspicious for infection. Edema and inflammation are differential considerations. Follow-up to resolution advised. 2. Additional findings as above. Currently on cefepime, broaden coverage? Will check cbc/cmp/procal/esr/crp? (3) Acute hypoxemic respiratory failure: Status: Acute Assessment and plan: - Patient reportedly down to 70% on room air - Was only in the low to mid 80s on 6 L nasal cannula prompting placement of CPAP with improvement of O2 on minimal settings - Additionally, patient has anemia with a hemoglobin of 8.1 which may be contributing to poor pulse ox readings - Will follow-up ABG to assess real oxygen saturation (4) Atrial fibrillation with RVR: Status: Acute Assessment and plan: - New diagnosis is as seen on EKG and on telemetry - Rate between 120s to 140 - Patient will be on Lovenox for DVT prophylaxis, will likely need Eliquis at discharge - Will start with 2.5 mg IV Lopressor and if rate shows improvement will start p.o. Lopressor 25 mg p.o. twice daily 12/05/24 HR in low 100's but BP is still soft. Monitor for now 12/07/24 Will start on eliquis and stop lovenox (5) CKD (chronic kidney disease) stage 3, GFR 30-59 ml/min: Status: Chronic Assessment and plan: - Appears to be at baseline with a creatinine of 1.9 (baseline about 1.7 - Follow-up a.m. BMP 12/05/24 recheck labs in am. UOP measured at 450ml over 4 hours (6) GERD (gastroesophageal reflux disease): Status: Chronic Assessment and plan: - Continue home Protonix (7) Anemia: Status: Chronic Assessment and plan: Hg has dropped from 8.6 to 7.3. Will hem check stool and check iron levels/tibc. Some dilutional effect? 12/06/24 6.9 hg is noted to be a bit low. Recheck in AM and consider xfusion 12/07/24 Hg is currently 7.7 and hemodynamically stable. No need for xfusion at this point Subjective Subjective Interval history since last seen: still with significant oxygen requirements Exam Narrative Exam Narrative: heent-ncat mmm nc in place neck-no lad no jvd cv-ir/ir lungs-bilat expirary wheeze no amu speaks in complete sentences abd-sntndbsa ext no cce Objective Last Vital Signs Temp 36.8 C 12/08/24 00:15 Pulse 124 H 12/08/24 10:00 Resp 27 H 12/08/24 10:00 BP 124/63 12/08/24 08:26 Pulse Ox 89 L 12/08/24 08:27 Laboratory Results - last 24 hr 12/07/24 12/08/24 09:55 05:35 WBC 17.56 H RBC 2.87 L Hgb 7.9 L Hct 24.2 L MCV 84 MCH 27.5 MCHC 32.6 RDW 16.0 H Plt Count 430 H MPV 8.4 Immature Gran % 0.9 Neutrophils % 84.7 Lymphocytes % 8.2 Monocytes % 5.5 Eosinophils % 0.6 Basophils % 0.1 Nucleated RBC % 0.4 H Absolute Neutrophils 14.87 H Absolute Lymphocytes 1.44 Absolute Monocytes 0.97 H Absolute Eosinophils 0.11 Absolute Basophils 0.02 ESR 71 H Sodium 138 Potassium 3.7 Chloride 106 Carbon Dioxide 19.2 L Anion Gap 12.8 H BUN 29 H Creatinine 1.4 H Est GFR (CKD-EPI 2020) 49.87 Glucose 101 Calcium 8.8 Magnesium 1.4 L Total Bilirubin 0.6 AST 29 ALT 17 Alkaline Phosphatase 129 H C-Reactive Protein 20.60 H Total Protein 7.4 Albumin 2.2 L Procalcitonin 0.13 Urine Legionella Ag Negative Time Spent with Patient Time Spent with Patient: 35-49 minutes Time was spent: preparing to see the patient(eg.review tests), obtaining and/or reviewing separately otained hiistory, ordering medications,tests, procedures, referring, communicating with other health customer care consultant, indepentently interpreting results, counseling the patient and care coordination
[2024-12-08] MEDS: Sodium Chloride 0.9% for Inhalation 3 ML VIAL UPD ×2 (14:11→19:36)
[2024-12-08] MEDS: Albuterol/Ipratropium 3 ML UPD VIAL UPD (14:11)
[2024-12-08] MEDS: Azithromycin 250 MG TAB 500 MG PO (14:18)
[2024-12-08] MEDS: Normal Saline 500 ML IV (18:32)
[2024-12-08] MEDS: MAGNESIUM SULFATE 2 GM/50 ML BAG IV_INF (19:37)
[2024-12-09] VITALS (61 sets, daily range): BP systolic 90–139; BP diastolic 45–83; PULSE 90–120; RESP 14–31; TEMP 36.2–37.6; O2SAT 86–98
[2024-12-09] MEDS: Albuterol/Ipratropium 3 ML UPD VIAL UPD (03:54)
[2024-12-09] MEDS: CEFEPIME 2 GM in Normal Saline 100 ML IVPB ×2 (06:21→18:01)
[2024-12-09 06:44] LABS: Abs Immature Grans 0.19 10^3/uL (0.0-0.06); HCT 22.9 % (40.0-50.0); HGB 7.4 g/dL (13.5-17.5); Immature Grans % 1.2 %; MCH 26.7 pg (27.0-33.0); MCHC 32.3 % (32.0-36.0); MCV 83 fL (80-95); MPV 8.6 fL (8.0-11.0); RBC 2.77 10^6/uL (4.36-5.78); RDW 15.9 % (11.8-14.1); RDW-SD 48.0 fL; WBC 16.50 10^3/uL (4.4-10.8)
[2024-12-09 06:53] LABS: ALT 15 U/L (16-63); AST 22 U/L (15-37); Albumin 2.0 g/dL (3.4-5.0); Alkaline Phosphatase 129 U/L (46-116); Anion Gap 12.4 mmol/L (3-11); BUN 29 mg/dL (7-18); Bilirubin, Total 0.7 mg/dL (0.2-1.0); CO2 20.6 mmol/L (21.0-32.0); Calcium 8.8 mg/dL (8.5-10.1); Chloride 105 mmol/L (98-107); Estimated GFR 45.91 (mL/min/1.73m2); Glucose 97 mg/dL (74-106); Magnesium 1.7 mg/dL (1.8-2.4); Potassium 3.9 mmol/L (3.5-5.1); Sodium 138 mmol/L (136-145); Total Protein 6.9 g/dL (6.4-8.2)
[2024-12-09 07:22] LABS: Platelet Count 445 10^3/uL (130-400)
[2024-12-09 07:23] LABS: Macrocytosis 1+
--- NOTE | 2024-12-09 08:29 | W.PULMCC ---
Documented by User: MARISELA Barraza 12/09/24 10:16 General Date of Service Date of service: 12/09/24 Time of Service: 08:15 Admit Date Admit Date: 12/04/24 Reason for Admission to ICU: 84 year old admitted for sepsis, acute hypoxic respiratory failure, CAP and possible CHF. 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 Patient is on NIV, CPAP 8 50%. Reports feeling unwell for 1-2 days before presenting to the ED for worsening SOB. Denies history of known lung disease, insignificant smoking history quit ~50 years ago, denies working around chemicals, asbestos, mines, never a flores, denies exposure to birds. Assessment and Plan Assessment and plan (1) Acute hypoxemic respiratory failure: Status: Acute (2) Sepsis: Status: Acute (3) CAP (community acquired pneumonia): Status: Acute (4) CKD (chronic kidney disease) stage 3, GFR 30-59 ml/min: Status: Chronic Qualifiers: Chronic kidney disease stage 3 subtype: stage 3b (GFR 30-44) Qualified Code(s): N18.32 - Chronic kidney disease, stage 3b (5) Anemia: Status: Chronic Assessment and plan: 84 year old admitted for sepsis, acute hypoxic respiratory failure, CAP and possible CHF. 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 Chest CT 12/07/24 reviewed - GGO's throughout, reticulation, traction bronchiectasis and honeycombing predominantly in the lower lobes concerning for underlying ILD process. 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 Prior TTE 08/22/2023 reviewed: preserved EF 65%, RV normal in size and function, RSVP 44mmHG, moderate TR, mild to moderate MR. Pace maker lead in right atrium Labs reviewed: anemia 7.4, creatinine at baseline 1.5, chronic hypomagnesium, elevated ESR, CRP, leukocytosis, negative procalcitonin Plan to complete serological work-up for underlying ILD noted on CT imaging. Start IV diuresis for elevated BNP, lower extremity third spacing and GGO's on imaging could be related to pulmonary edema. Continue cefepime and azithromycin for probable overlapping CAP causing leukocytosis. TTE scheduled for today. Continue with respiratory support via HFNC or NIV to decrease WOB and improve oxygenation. If patient's condition were to worsen, he is agreeable to intubation and mechanical ventilation. Recommendations I&O: Intake & Output 12/06/24 12/07/24 12/08/24 12/09/24 23:59 23:59 23:59 23:59 Intake Total 950 / 950 1190.000 / 1190.000 690.069 / 690.069 Output Total 1000 / 1000 1150 / 1150 375 / 375 100 / 100 Balance -50 / -50 40.000 / 40.000 315.069 / 315.069 -100 / -100 Weight 171 lb 8.314 oz 175 lb 4.28 oz Code Status: Resuscitation Status Full Code Exam Resp Effort & Inspection: tachypneic (on CPAP) Extrem Other: bilateral lower extremity 3+ pitting edema to knee Most Recent VS/Results Last Vital Signs Temp 98.1 F 12/09/24 08:27 Pulse 90 12/09/24 07:52 Resp 20 12/09/24 07:52 BP 113/66 12/09/24 06:01 Pulse Ox 96 12/09/24 07:53 Laboratory Results - last 24 hr 12/07/24 12/09/24 12/09/24 09:55 05:35 05:35 WBC 16.50 H RBC 2.77 L Hgb 7.4 L Hct 22.9 L MCV 83 MCH 26.7 L MCHC 32.3 RDW 15.9 H Plt Count 445 H MPV 8.6 Immature Gran % 1.2 Neutrophils % 84.0 Lymphocytes % 7.2 Monocytes % 6.2 Eosinophils % 1.3 Basophils % 0.1 Nucleated RBC % 0.3 Absolute Neutrophils 13.86 H Absolute Lymphocytes 1.19 L Absolute Monocytes 1.02 H Absolute Eosinophils 0.21 Absolute Basophils 0.02 RBC Morphology See Below Macrocytosis 1+ Sodium 138 Potassium 3.9 Chloride 105 Carbon Dioxide 20.6 L Anion Gap 12.4 H BUN 29 H Creatinine 1.5 H Est GFR (CKD-EPI 2020) 45.91 Glucose 97 Calcium 8.8 Magnesium 1.7 L Cancelled Total Bilirubin 0.7 AST 22 ALT 15 L Alkaline Phosphatase 129 H Total Protein 6.9 Albumin 2.0 L Urine Legionella Ag Negative Documented by User: Osvaldo Lentz MD 12/09/24 10:56 General Reason for Admission to ICU: 84 year old admitted for sepsis, acute hypoxic respiratory failure, CAP and possible CHF. 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 Reports feeling unwell for 1-2 days before presenting to the ED for worsening SOB. Denies history of known lung disease, insignificant smoking history quit ~50 years ago, denies working around chemicals, asbestos, mines, never a flores, denies exposure to birds. Denied history of connective tissue disease. No joint swelling. No skin rashes. Patient is on NIV, CPAP 8 50%. Oxygenation has been better with CPAP over AIRVO. Assessment and Plan Assessment and plan (1) Acute hypoxemic respiratory failure: Status: Acute (2) Sepsis: Status: Acute (3) CAP (community acquired pneumonia): Status: Acute (4) CKD (chronic kidney disease) stage 3, GFR 30-59 ml/min: Status: Chronic Qualifiers: Chronic kidney disease stage 3 subtype: stage 3b (GFR 30-44) Qualified Code(s): N18.32 - Chronic kidney disease, stage 3b (5) Anemia: Status: Chronic Exam Narrative Exam Narrative: General: alert, no acute distress Head: normocephalic ENT: no stridor, trachea midline CV: normal rate, irregular rhythm Respiratory: no wheezing, basilar crackles, no rhonchi, no prolonged expiration GI: abd soft, non-tender, non-distended Skin: no rashes Extremities: +2 edema Psych: normal affect Review of Systems Narrative: 10 pt ROS negative except as above Time spent with patient Time spent in Critical Care: 36 Time spent in Critical care included: Coordination of care, Chart review, Documenting critically ill care, Time at immediate bedside and Discussing critically ill care with other medical staff
--- NOTE | 2024-12-09 08:31 | CMPROGNOTE_ITS ---
Date of service: 12/09/24 Time of Service: 08:31 Care Management Progress Note Progress Note Text Progress Note Text: Partha remains critically ill in the ICU. He is still requiring high flow nasal oxygen and his oxygen saturation has been in the high 80s to low 90s. Partha was sitting up in bed when CM met with him. His daughter Doretha was there at the time. When asked how he was doing, Partha answered not very well I guess. I've had a pretty rough day. Partha was seen by Dr. Hunt today for a Palliative Care consultation. No note is available yet however there was no new COLST form completed so it appears that Partha remains in full code status. CM will follow. Discharge Potential Discharge Needs: PCP F/U Appt Anticipated Barriers to Discharge: None Identified Patient/Family Education Needs: Review discharge instructions, discuss Ask Me Three Transportation: Private vehicle Plan: Anticipate Partha will be discharged home with no new services, when medically cleared. He will follow up with his PCP and plan of care and transport with family. CM will continue to assess for discharge needs. Social Determinants of Health Screening Social Determinants of health last assessed in clinic: 12/09/24 Will the Patient Participate in the Screening?: Yes Do you worry about having a steady place to live?: no Problems where you live: no known problems In the past 12 months, have you had to go without electric, gas, oil or water in your home?: no 1. Within the past 12 months, we worried whether our food would run out before we got money to buy more.: Never true 2. Within the past 12 months, the food we bought just didn't last and we didn't have money to get more.: Never true Has lack of transportation kept you from medical appointments or from doing things needed for daily living?: no Has anyone in your life made you feel unsafe or unsupported?: no How hard is it for you to pay for the very basics like food, housing, medical care, and heating? Would you say it is:: Not hard at all Do you want help finding or keeping work or a job?: I do not need or want help If for any reason you need help with day-to-day activities such as bathing, pre paring meals, shopping, managing finances, etc., do you get the help you need?: I don?t need any help How often do you feel lonely or isolated from those around you?: Rarely Do you speak a language other than Hungarian at home?: No Does the patient want assistance with any of the above?: No Health Related Social Needs Health related social needs: feeling lonely/isolated (Z60.8) Health related social needs details: [place] lonely after in 2016, says he had to put her pictures away but lately has been feeling like he could take them back out again.
[2024-12-09] MEDS: Omeprazole 20 MG CAPCR PO (08:41)
[2024-12-09] MEDS: Apixaban 5 MG TAB PO ×2 (08:41→19:58)
[2024-12-09] MEDS: Normal Saline Flush 10 ML SYR IVP ×2 (08:41→23:42)
[2024-12-09] MEDS: Furosemide 40 MG TAB PO (08:44)
[2024-12-09] MEDS: Magnesium Oxide 400 MG TAB 800 MG PO ×2 (08:45→19:58)
[2024-12-09] MEDS: AZITHROMYCIN 500 MG in Normal Saline 250 ML 250 MG IVPB (09:55)
--- NOTE | 2024-12-09 12:57 | W.PALLCONSUL ---
Date of service: 12/09/24 Time of Service: 16:00 History of Present Illness History of Present Illness Chief Complaint: respiratory failure Narrative: I am seeing Partha and his daughter Marietta at the request of the hospitalist team. Partha is an 84-year-old man, he lives independently still does his financial matters and drives. He became much more short of breath and was having a hard time at home, came to the hospital and was found to have severe pneumonia. He was admitted to the ICU. Over the last few days he has declined significantly requiring more support. He is a full code and he has told the team that he is okay with going on a breathing machine. Neither Partha nor his daughter Marietta understood that the breathing machine would mean that he would have to be sedated, would not be able to talk eat or drink. They also did not understand that CPR was rarely successful and the more comorbidities you have the last successful it was. We talked for some time and Partha admitted that he thought that when he came into the hospital this time he came in to . His daughter Marietta was very upset but she was able to state that she did not want him to go through the intubation process. Consults Consult date: 12/09/24 Requesting physician: Julio Chu Assessment and Plan Assessment and plan (1) CKD (chronic kidney disease) stage 3, GFR 30-59 ml/min: Status: Chronic (2) Iron deficiency anemia: Status: Chronic (3) Sepsis: Status: Acute (4) Acute hypoxemic respiratory failure: Status: Acute Assessment and plan: Partha stated twice that he thought he was going to this hospitalization. He deferred definite decisions regarding CODE STATUS to his daughter Marietta. She was understandably in tears. At the same time she stated that she did not want her dad to go through CPR or intubation. They seemed like they needed some time to talk about this. I offered that to them but with his fatigue I offered to come back in the morning and discuss his CODE STATUS and goals of care again. They both agreed. I will be there at 7:00 in the AM Unfortunately Partha is having a harder time maintaining his oxygenation. He has a preference for his left side. He desats with any movement. He is not doing well. He also understands that he is not doing well and is hoping to improve but understanding that he may not. Additionally he does not feel that he will be able to go back home but rather he will need to go to a custodial first to recuperate. Per Doretha they had a very bad experience at a custodial for their mother. 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; declined pulm referral or PFTs; no SOB or symptoms Anemia in CKD (chronic kidney disease) (Chronic) CKD (chronic kidney disease) stage 3, GFR 30-59 ml/min (Chronic) Muscle pain (Acute) Spinal stenosis (Acute ~11/2022) CT-lumbar 12/2022 Chronic back pain (Chronic) Hypomagnesemia (Acute) IFG (impaired fasting glucose) (Chronic) Gout attack (Acute ~08/2022) R 5th digit--elevated uric acid Vitamin B12 deficiency (Acute) Moderate tricuspid regurgitation (Chronic) 06/09/22 echo: mild; 2023: moderate Degenerative disc disease, lumbar (Chronic) Mild mitral valve regurgitation (Chronic ~2017) 06/09/22 echo: mild; repeated in 2023 Osteoarthritis of right knee (Acute) Osteoarthritis of left knee (Acute) Hiatal hernia (Chronic) 05/08/2018 EGD Pacemaker (Chronic 08/16/17) Syncope 07/2017 --> 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 Neuropathy (Chronic 08/24/12) R post soulder Iron deficiency anemia (Chronic 11/24/11) neg colonoscopy, EGD Lawler's; Yarelis Oconnell 2011; freq blood donations; chronic, nml Epo, likely 2/2 CKD Candidate for statin therapy due to risk of future cardiovascular event (Chronic 01/05/17) 12/2016 labwork: 10-year ASCVD risk = ~33% --> pt declines statins Medical History (Updated 12/05/24 @ 12:40 by Julio Chu MD) Near syncope Hypocalcemia Syncope (03/28/11) Initially 2011 with negative workup; recurrent 07/2017 and found to have sinus pause --> PPM placed 07/26/2017 Cervical radiculopathy (10/04/12) Lawler's esophagus (~2011) Most recent EGD 05/08/2018: no endoscopic evidence for Lawler's, consider repeat EGD in 2-3 years for surveillance; discussed with pt 07/2021 & he declines further surveillance EGDs HLD (hyperlipidemia) Surgical History Pacemaker (07/26/17) [facility] [place] AirDroids model 7740 serial # [id number] Ventricular lead BS model 7741 ser# [id number] Pulse generator BS model [id number] ser#[id number] Endoscopy (05/08/14) Upper GI Dr Graham-[facility] [place] 11/10/15 EGD W/ bx Family History Mother , Parkinson's disease in her 70s Parkinson disease Father , 68yo from [place] Myocardial infarction Heart disease Sister Stroke Cancer Stomach or pancreatic? Social History Smoking/Tobacco Use Status: Former Tobacco Use Quit Date: 03/13/1968 Tobacco: How many years used: 2 Smoking risk assessment performed?: Yes Alcohol Intake: former Drug use: Never Substance use type: does not use Adopted: No Caregiver/Support person: No Foster care: No Housing: house Number of Children: 1 Communication Needs: Corrective Lenses Education Level: college Do you need help understanding health information?: Rarely current occupation: Retired--[employer] Pets and animals: Yes Pets and animals: cat(s) Sexually active: No Do you think of yourself as: straight/heterosexual Current gender identity: male Other: What is your relationship status?: How often do you talk on the phone with friends or family?: three or more times per week How often do you get together with friends or relatives?: three or more times per week How often do you attend rastafari or yarsani services?: decline to answer Do you belong to any clubs or organized social groups?: yes Panel score (0-1 are the most socially isolated patients): 2 What type of physical activity do you participate in: none Duration: decline to answer Frequency: decline to answer Edna/Jehovah'S Witness: Buddhist Special edna needs: No Seatbelt use: always Helmet use: No (N/A) Drive intox or ride w/intox 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 Initially he could talk in 6 word sentences but tired quickly and could only talk in 2 and 3 word sentences after 15 minutes. He did ask questions that were thoughtful. His lungs had air movement in all quiros. (This was surprising to me given his CT scan) his heart was distant and irregular. He was oriented and alert initially although tired Results Last Vital Signs Temp 98.1 F 12/09/24 08:27 Pulse 104 H 12/09/24 12:02 Resp 22 12/09/24 12:02 BP 104/70 12/09/24 12:01 Pulse Ox 90 L 12/09/24 12:02 Labs 12/09/24 05:35 12/10/24 05:25 Labs: Laboratory Results - last 24 hr 12/09/24 12/09/24 05:35 05:35 WBC 16.50 H RBC 2.77 L Hgb 7.4 L Hct 22.9 L MCV 83 MCH 26.7 L MCHC 32.3 RDW 15.9 H Plt Count 445 H MPV 8.6 Immature Gran % 1.2 Neutrophils % 84.0 Lymphocytes % 7.2 Monocytes % 6.2 Eosinophils % 1.3 Basophils % 0.1 Nucleated RBC % 0.3 Absolute Neutrophils 13.86 H Absolute Lymphocytes 1.19 L Absolute Monocytes 1.02 H Absolute Eosinophils 0.21 Absolute Basophils 0.02 RBC Morphology See Below Macrocytosis 1+ Sodium 138 Potassium 3.9 Chloride 105 Carbon Dioxide 20.6 L Anion Gap 12.4 H BUN 29 H Creatinine 1.5 H Est GFR (CKD-EPI 2020) 45.91 Glucose 97 Calcium 8.8 Magnesium 1.7 L Cancelled Total Bilirubin 0.7 AST 22 ALT 15 L Alkaline Phosphatase 129 H Total Protein 6.9 Albumin 2.0 L Laboratory Tests 12/04/24 12/05/24 12/06/24 12:25 06:12 05:35 WBC 10.58 Hgb 6.9 L* ESR INR 1.3 H Carbon Dioxide Creatinine Albumin 12/08/24 12/09/24 05:35 05:35 WBC 16.50 H Hgb 7.4 L ESR 71 H INR Carbon Dioxide 20.6 L Creatinine 1.5 H Albumin 2.0 L Imaging Additional studies: hest FINDINGS: Exam is somewhat limited due to motion and arm positioning. Pulmonary parenchyma: Severe bilateral upper and lower lobe interstitial and airspace infiltrates with multifocal areas of sparing. Honeycombing again noted at the left lung base. Multiple blebs are again noted at the medial right lung base. Tracheobronchial tree: No mucous plugging. No bronchiectasis . Pleura: There is chronic left pleural calcification with pleural thickening. There is now a tiny right pleural effusion. No pneumothorax. Aorta: Thoracic aorta non-dilated. Mild atherosclerotic changes. Lymph nodes: Multiple small lymph nodes noted in the mediastinum, consistent with reactive lymph nodes. Bones: Degenerative changes are seen. No evidence of compression fracture. Upper abdomen: Unremarkable. Soft tissues: Unremarkable. Heart: A pericardial effusion is now present, measuring up to 2 cm in thickness. The heart is dilated. A pacemaker is present. Coronary artery calcifications are seen. IMPRESSION: Severe bilateral pulmonary infiltrates. Moderate-sized pericardial effusion. Time Spent Time Spent with Patient Time Spent(min): 68
--- NOTE | 2024-12-09 15:33 | PGE_ITS ---
Date of Service Date of service: 12/09/24 Time of Service: 15:33 Assessment and Plan Assessment and plan (1) Sepsis: Status: Acute Assessment and plan: - Patient meets criteria for sepsis with blood cell count of 13.2, pulse 120, source of infection being community-acquired pneumonia - Does not have any signs of endorgan damage - Started on Vanco, Zosyn and doxycycline in the emergency department - Will continue vancomycin and switch to cefepime as patient has CKD and combination of Vanco and Zosyn can lead to worsening kidney function especially in the setting of sepsis - MRSA swab ordered and if negative will discontinue vancomycin - Follow-up blood cultures 12/05/24 MRSA swab is negative so will stop vanc sepsis resolved. Blood cultures pending 12/06/24 negative thus far 12/07/24 added azithromycin for atypicals/ ordered mycoplasma pneumo pcr as well as tick and lyme 12/08/24 Worsening concerns for ILD vs infection vs ARDS. Notes reviewed from Pulm/CC. Serological panel initiated be pulm (2) CAP (community acquired pneumonia): Status: Acute Assessment and plan: - Presumed source of infection as noted above 12/07/24 ct report chest as above: IMPRESSION: 1. Extensive interstitial and airspace opacities in both lungs suspicious for infection. Edema and inflammation are differential considerations. Follow-up to resolution advised. 2. Additional findings as above. Currently on cefepime, broaden coverage? Will check cbc/cmp/procal/esr/crp? 12/08/24 On cefepime and azithromycin (3) Acute hypoxemic respiratory failure: Status: Acute Assessment and plan: - Patient reportedly down to 70% on room air - Was only in the low to mid 80s on 6 L nasal cannula prompting placement of CPAP with improvement of O2 on minimal settings - Additionally, patient has anemia with a hemoglobin of 8.1 which may be contributing to poor pulse ox readings - Will follow-up ABG to assess real oxygen saturation 12/09/24 Concern for component of chf as well. Echo pending and started lasix 40mg x1 with good diuresis. Pulm recommended against continuing diuresis at this point (4) Atrial fibrillation with RVR: Status: Acute Assessment and plan: - New diagnosis is as seen on EKG and on telemetry - Rate between 120s to 140 - Patient will be on Lovenox for DVT prophylaxis, will likely need Eliquis at discharge - Will start with 2.5 mg IV Lopressor and if rate shows improvement will start p.o. Lopressor 25 mg p.o. twice daily 12/05/24 HR in low 100's but BP is still soft. Monitor for now 12/07/24 Will start on eliquis and stop lovenox (5) CKD (chronic kidney disease) stage 3, GFR 30-59 ml/min: Status: Chronic Assessment and plan: - Appears to be at baseline with a creatinine of 1.9 (baseline about 1.7 - Follow-up a.m. BMP 12/05/24 recheck labs in am. UOP measured at 450ml over 4 hours 12/09/24 weight 76.3->79.5 over last 96 hours. Intermittent diuresis 2/2 CKD. Last I/O -580 over last 24 hours (6) GERD (gastroesophageal reflux disease): Status: Chronic Assessment and plan: - Continue home Protonix (7) Anemia: Status: Chronic Assessment and plan: Hg has dropped from 8.6 to 7.3. Will hem check stool and check iron levels/tibc. Some dilutional effect? 12/06/24 6.9 hg is noted to be a bit low. Recheck in AM and consider xfusion 12/07/24 Hg is currently 7.7 and hemodynamically stable. No need for xfusion at this point 12/09/24 Hg is 7/4 with fairly stable vitals. No xfusion necessary on eliquis Subjective Subjective Interval history since last seen: pt with worsening sob today. POC d/w pt as well as Pulm/CC and respiratory therapy Exam Narrative Exam Narrative: cons-appears much less comfortable today heent-ncat mmm nc in place neck-no lad no jvd cv-ir/ir lungs-bilat expirary wheeze no amu speaks in complete sentences abd-sntndbsa ext no cce Objective Last Vital Signs Temp 36.7 C 12/09/24 08:27 Pulse 105 H 12/09/24 14:02 Resp 14 12/09/24 14:02 BP 90/50 L 12/09/24 14:01 Pulse Ox 97 12/09/24 14:02 Laboratory Results - last 24 hr 12/09/24 12/09/24 05:35 05:35 WBC 16.50 H RBC 2.77 L Hgb 7.4 L Hct 22.9 L MCV 83 MCH 26.7 L MCHC 32.3 RDW 15.9 H Plt Count 445 H MPV 8.6 Immature Gran % 1.2 Neutrophils % 84.0 Lymphocytes % 7.2 Monocytes % 6.2 Eosinophils % 1.3 Basophils % 0.1 Nucleated RBC % 0.3 Absolute Neutrophils 13.86 H Absolute Lymphocytes 1.19 L Absolute Monocytes 1.02 H Absolute Eosinophils 0.21 Absolute Basophils 0.02 RBC Morphology See Below Macrocytosis 1+ Sodium 138 Potassium 3.9 Chloride 105 Carbon Dioxide 20.6 L Anion Gap 12.4 H BUN 29 H Creatinine 1.5 H Est GFR (CKD-EPI 2020) 45.91 Glucose 97 Calcium 8.8 Magnesium 1.7 L Cancelled Total Bilirubin 0.7 AST 22 ALT 15 L Alkaline Phosphatase 129 H Total Protein 6.9 Albumin 2.0 L Time Spent with Patient Time Spent with Patient: 35-49 minutes Time was spent: preparing to see the patient(eg.review tests), obtaining and/or reviewing separately otained hiistory, ordering medications,tests, procedures, referring, communicating with other health child care centre director, indepentently interpreting results, counseling the patient and care coordination
[2024-12-09] MEDS: Acetaminophen 325 MG TAB 650 MG PO (21:51)
[2024-12-09] MEDS: MORPHine 2 MG/ML SYR 1 MG IVP (23:42)
[2024-12-10] VITALS (47 sets, daily range): BP systolic 93–127; BP diastolic 49–70; PULSE 87–126; RESP 16–32; TEMP 36–37; O2SAT 73–98
[2024-12-10] MEDS: LORazepam 20 MG/10 ML VIAL IVP (00:19)
[2024-12-10] MEDS: CEFEPIME 2 GM in Normal Saline 100 ML IVPB ×2 (06:08→18:04)
[2024-12-10 06:28] LABS: Abs Immature Grans 0.19 10^3/uL (0.0-0.06); HCT 22.2 % (40.0-50.0); Immature Grans % 1.0 %; MCH 26.4 pg (27.0-33.0); MCHC 31.5 % (32.0-36.0); MCV 84 fL (80-95); MPV 8.5 fL (8.0-11.0); Platelet Count 302 10^3/uL (130-400); RBC 2.65 10^6/uL (4.36-5.78); RDW 16.1 % (11.8-14.1); RDW-SD 49.1 fL; WBC 19.62 10^3/uL (4.4-10.8)
[2024-12-10 06:34] LABS: HGB 7.0 g/dL (13.5-17.5)
[2024-12-10 06:38] LABS: ALT 18 U/L (16-63); AST 38 U/L (15-37); Albumin 1.8 g/dL (3.4-5.0); Alkaline Phosphatase 155 U/L (46-116); Anion Gap 10.6 mmol/L (3-11); BUN 30 mg/dL (7-18); Bilirubin, Total 0.7 mg/dL (0.2-1.0); CO2 22.4 mmol/L (21.0-32.0); Calcium 8.4 mg/dL (8.5-10.1); Chloride 104 mmol/L (98-107); Estimated GFR 45.91 (mL/min/1.73m2); Glucose 95 mg/dL (74-106); Potassium 3.9 mmol/L (3.5-5.1); Sodium 137 mmol/L (136-145); Total Protein 6.6 g/dL (6.4-8.2)
[2024-12-10 07:01] LABS: Hypochromasia 2+
--- NOTE | 2024-12-10 07:52 | PCPN_ITS ---
Date of service: 12/10/24 Time of Service: 07:52 Assessment and Plan Assessment and plan (1) Iron deficiency anemia: Status: Chronic (2) Sepsis: Status: Acute (3) Acute hypoxemic respiratory failure: Status: Acute Assessment and plan: He again told me that he thought during his hospitalization that he would . He and Doretha decided on DNR status last evening and completed a COLST form. Partha Coyne and I talked. We did talk about comfort care and what that meant. Partha stated that he could not make that decision. He did tell me that he wanted Doretha to make the decision for me. Doretha was understandably upset but also said that she would make the decision if necessary. Multiple people are coming today to the hospital from out of town. Doretha would like to wait and see how he does over the next 4 hours while they come to the bedside. I did explain that comfort care meant that all the things that we do are based on how comfortable he is. I explained that probably he would be switched to a hospital bed and not an ICU bed, he would not have monitors on him, he would most likely have his antibiotics stopped etc. again she wants to wait until about noon to make this decision. She wants to give relatives time to say goodbye. Partha is working very hard right now based on his heart rate and respiratory rate. She may need to make that decision sooner We did review the blood work that was back today. I also showed her how the labs that were ordered yesterday were still pending. Subjective Subjective Interval history since last seen: I am meeting with Partha and his daughter Doretha in the ICU. Last evening when I did a palliative consult they needed some time to think about all that I had to say. They did make the decision for Partha to be DNR/DNI and had Dr. Madrigal do the COLST form. They are both very comfortable with that decision I sat with Partha for about 15 minutes before Doretha arrived in the ICU. During that time Partha asked about all the wires around him. He also said well I guess I did not last night Overnight he had a hard time. His sats were lower. He was given some morphine and Ativan and although it did not appear to work soon after that his oxygenation went up and he was more relaxed and able to sleep. Exam Narrative Exam Narrative: I sat in his room for about 15 minutes before doretha arrived. He was definitely struggling to breathe. His heart rate was in the 120s. His respiratory rate was in the mid to upper 20s. He was oxygenating at about 88% on high flow oxygen. His blood pressure was stable. He was able to answer questions with 3- 6 word sentences. Objective Last Vital Signs Temp 97.7 F 12/10/24 04:00 Pulse 104 H 12/10/24 04:01 Resp 25 H 12/10/24 04:01 BP 116/68 12/10/24 04:01 Pulse Ox 89 L 12/10/24 04:01 Laboratory Results - last 24 hr 12/10/24 05:25 WBC 19.62 H RBC 2.65 L Hgb 7.0 L* Hct 22.2 L MCV 84 MCH 26.4 L MCHC 31.5 L RDW 16.1 H Plt Count 302 MPV 8.5 Immature Gran % 1.0 Neutrophils % 84.5 Lymphocytes % 5.7 Monocytes % 7.7 Eosinophils % 1.0 Basophils % 0.1 Nucleated RBC % 0.3 Absolute Neutrophils 16.58 H Absolute Lymphocytes 1.12 L Absolute Monocytes 1.51 H Absolute Eosinophils 0.20 Absolute Basophils 0.02 RBC Morphology See Below Hypochromasia 2+ Sodium 137 Potassium 3.9 Chloride 104 Carbon Dioxide 22.4 Anion Gap 10.6 BUN 30 H Creatinine 1.5 H Est GFR (CKD-EPI 2020) 45.91 Glucose 95 Calcium 8.4 L Total Bilirubin 0.7 AST 38 H ALT 18 Alkaline Phosphatase 155 H Total Protein 6.6 Albumin 1.8 L
--- NOTE | 2024-12-10 07:56 | W.PULMCC ---
Documented by User: MARISELA Barraza 12/10/24 09:41 General Date of Service Date of service: 12/10/24 Time of Service: 07:40 Assessment and Plan Assessment and plan (1) Acute hypoxemic respiratory failure: Status: Acute (2) Sepsis: Status: Acute (3) CAP (community acquired pneumonia): Status: Acute (4) CKD (chronic kidney disease) stage 3, GFR 30-59 ml/min: Status: Chronic Qualifiers: Chronic kidney disease stage 3 subtype: stage 3b (GFR 30-44) Qualified Code(s): N18.32 - Chronic kidney disease, stage 3b (5) Anemia: Status: Chronic Assessment and plan: 84 year old admitted for sepsis, acute hypoxic respiratory failure, CAP and possible CHF. 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 Patient diuresised 1.0L of fluid without improvement in respiratory status however, lower extremity edema/third spacing significantly improved. Decompensated today from yesterday. Continues on maximal Airvo HFNC support, transitioning to CPAP prn. Met with palliative care who discussed DNR/DNI status. Plan to start pulse steroids and re-evaluate for improvement in 24 hours. Will consider comfort care measures if respiratory status is not improving. Continued - pending serological work-up for underlying ILD. Continue cefepime and azithromycin for possible overlapping bacterial pneumonia contributing to leukocytosis. TTE 12/09/24 reviewed: preserved EF 55-60%, RV normal size and function RSVP 46mmHg, moderate to severe TR, small pericardial effusion without tamponade Chest CT 12/07/24 reviewed - GGO's throughout, reticulation, traction bronchiectasis and honeycombing predominantly in the lower lobes concerning for underlying ILD process. 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 Prior TTE 08/22/2023 reviewed: preserved EF 65%, RV normal in size and function, RSVP 44mmHG, moderate TR, mild to moderate MR. Pace maker lead in right atrium Labs reviewed: anemia 7.0, creatinine at baseline 1.5, chronic hypomagnesium, elevated ESR, CRP, leukocytosis, negative procalcitonin, pending autoimmune serological workup COVID/FLU/RSV: negative blood cultures: negative Sputum 12/09: pending Recommendations I&O: Intake & Output 12/07/24 12/08/24 12/09/24 12/10/24 23:59 23:59 23:59 23:59 Intake Total 1190.000 / 1190.000 690.069 / 690.069 790 / 790 100 / 100 Output Total 1150 / 1150 375 / 375 1740 / 1740 200 / 200 Balance 40.000 / 40.000 315.069 / 315.069 -950 / -950 -100 / -100 Weight 175 lb 4.28 oz 170 lb 3.15 oz Code Status: Resuscitation Status DNR/DNI Most Recent VS/Results Last Vital Signs Temp 97.7 F 12/10/24 04:00 Pulse 104 H 12/10/24 04:01 Resp 25 H 12/10/24 04:01 BP 116/68 12/10/24 04:01 Pulse Ox 89 L 12/10/24 04:01 Laboratory Results - last 24 hr 12/10/24 05:25 WBC 19.62 H RBC 2.65 L Hgb 7.0 L* Hct 22.2 L MCV 84 MCH 26.4 L MCHC 31.5 L RDW 16.1 H Plt Count 302 MPV 8.5 Immature Gran % 1.0 Neutrophils % 84.5 Lymphocytes % 5.7 Monocytes % 7.7 Eosinophils % 1.0 Basophils % 0.1 Nucleated RBC % 0.3 Absolute Neutrophils 16.58 H Absolute Lymphocytes 1.12 L Absolute Monocytes 1.51 H Absolute Eosinophils 0.20 Absolute Basophils 0.02 RBC Morphology See Below Hypochromasia 2+ Sodium 137 Potassium 3.9 Chloride 104 Carbon Dioxide 22.4 Anion Gap 10.6 BUN 30 H Creatinine 1.5 H Est GFR (CKD-EPI 2020) 45.91 Glucose 95 Calcium 8.4 L Total Bilirubin 0.7 AST 38 H ALT 18 Alkaline Phosphatase 155 H Total Protein 6.6 Albumin 1.8 L Documented by User: Osvaldo Lentz MD 12/10/24 09:43 Assessment and Plan Assessment and plan (1) Acute hypoxemic respiratory failure: Status: Acute (2) Sepsis: Status: Acute (3) CAP (community acquired pneumonia): Status: Acute (4) CKD (chronic kidney disease) stage 3, GFR 30-59 ml/min: Status: Chronic Qualifiers: Chronic kidney disease stage 3 subtype: stage 3b (GFR 30-44) Qualified Code(s): N18.32 - Chronic kidney disease, stage 3b (5) Anemia: Status: Chronic Assessment and plan: Assessment: 1. Acute hypoxemic respiratory failure - ddx: ILD exacerbation vs infectious pneumonia. Less likely pulmonary edema, given lack of improvement with diuresis and unremarkable echo 2. 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 No significant environmental exposures noted. Ddx: IPF vs fibrotic NSIP vs HSP 3. Sepsis - based on vitals and elevated WBC 4. Leukocytosis - infecitous cause vs stress/leukmoid reaction 5. Afib 6. CKD - Cr stable at 1.5 Recommendations: - given his clinical worsening, will methylpred 250 mg Q6H to suspected ILD exacerbation - continue empiric antibiotics (azithromycin, cefepime) - prefer to keep on the dry side. Cr stable, so additional lasix 40 mg IV x 1 today - currently DNR/DNI. Should he develop worsening respiratory distress and discomfort, taking a palliative approach would certainly be reasonable. At htis time he is maintaining his saturations and is not uncomfortable, so would like to continue the above treatment plan. His overall prognosis is very guarded. Family updated at bedside - follow up on serological CTD workup Discussed with Dr. Diamond Subjective Critical and life-threatening events over the past 24 hours: Oxygen requirements increased. Currently on AIRVO 60 L, FiO2 93%. He denies chest pain. Has had a cough with some sputum production. Does have dyspnea at rest. Code status changed to DNR/DNI. ROS: 6 pt ROS negative except as above Exam Narrative Exam Narrative: General: fatigued, no acute distress Head: normocephalic ENT: no stridor, trachea midline CV: tachycardic, irregular rhythm Respiratory: no wheezing, basilar crackles, no rhonchi, no prolonged expiration GI: abd soft, non-tender, non-distended Skin: no rashes Extremities: trace edema Psych: normal affect Time spent with patient Time spent in Critical Care: 36 Time spent in Critical care included: Coordination of care, Chart review, Documenting critically ill care, Time at immediate bedside, Discussing critically ill care with other medical staff and Discussing care with family members
--- NOTE | 2024-12-10 08:11 | CMPROGNOTE_ITS ---
Date of service: 12/10/24 Time of Service: 08:11 Care Management Progress Note Progress Note Text Progress Note Text: Partha remains ICU level of care. He is still struggling to breathe and is requiring 60 L/min of O2 via HFNC to maintain oxygen saturation in the 80s. He was started on Methylprednisolone today. The plan is to see if that will allow for any significant improvement for the next 24 hours. If it is unsuccessful, Partha will likely transition to comfort measures. Doretha was visiting when CM met with Partha. He was sleeping and CM did not disturb him as he had a very difficult night. Two of Doretha's relatives arrived this morning from out of state and were there to support Doretha. CM will follow. Discharge Potential Discharge Needs: PCP F/U Appt Anticipated Barriers to Discharge: Medical Status Patient/Family Education Needs: Review discharge instructions, discuss Ask Me Three Transportation: Other Plan: Partha continues to struggle to breathe. He met with Dr. Hunt last evening with Doretha and transitioned to DNR/DNI status. Partha and Doretha are considering comfort measures. They met with Dr. Hunt again this morning and plan to make a decision later today. CM will continue to offer support to Partha and Doretha and assess for discharge needs. Social Determinants of Health Screening Social Determinants of health last assessed in clinic: 12/10/24 Will the Patient Participate in the Screening?: Yes Do you worry about having a steady place to live?: no Problems where you live: no known problems In the past 12 months, have you had to go without electric, gas, oil or water in your home?: no 1. Within the past 12 months, we worried whether our food would run out before we got money to buy more.: Never true 2. Within the past 12 months, the food we bought just didn't last and we didn't have money to get more.: Never true Has lack of transportation kept you from medical appointments or from doing things needed for daily living?: no Has anyone in your life made you feel unsafe or unsupported?: no How hard is it for you to pay for the very basics like food, housing, medical care, and heating? Would you say it is:: Not hard at all Do you want help finding or keeping work or a job?: I do not need or want help If for any reason you need help with day-to-day activities such as bathing, preparing meals, shopping, managing finances, etc., do you get the help you need?: I don?t need any help How often do you feel lonely or isolated from those around you?: Rarely Do you speak a language other than Malaysian at home?: No Does the patient want assistance with any of the above?: No Health Related Social Needs Health related social needs: feeling lonely/isolated (Z60.8) Health related social needs details: [place] lonely after in 2016, says he had to put her pictures away but lately has been feeling like he could take them back out again.
--- NOTE | 2024-12-10 09:28 | W.NUTRFU ---
Date of service: 12/10/24 Time of Service: 09:28 Nutrition Note NOTE: Mr Mantilla's chart reviewed. Decision making around transitioning to comfort care measures pending later today. with family visiting today. Intake has declined related to amounts needed to support increased energy output for respiration with accessory muscles. Boost protein ONS and additional options that are kcal/protein dense will continue to be offered for the ease of eating. Family will be offered guest trays from inpatient menu, cafeteria options, comfort cart depending on how the day goes. Will monitor for status changes and support nutrition goals accordingly. Time Spent in Nutritional Counseling and Treatment: 0
[2024-12-10] MEDS: Omeprazole 20 MG CAPCR PO (09:33)
[2024-12-10] MEDS: methylPREDNISolone SUCC 125 MG VIAL 250 MG IVP ×3 (09:33→21:33)
[2024-12-10] MEDS: Acetaminophen 325 MG TAB 650 MG PO ×2 (09:33→21:33)
[2024-12-10] MEDS: Apixaban 5 MG TAB PO ×2 (09:33→21:32)
[2024-12-10] MEDS: Magnesium Oxide 400 MG TAB 800 MG PO ×2 (09:33→21:33)
[2024-12-10] MEDS: Normal Saline Flush 10 ML SYR IVP ×2 (09:34→21:34)
[2024-12-10] MEDS: Furosemide 40 MG/4 ML VIAL IVP (09:34)
[2024-12-10 10:25] LABS: Lab Add On Test DONE
[2024-12-10] MEDS: Normal Saline 500 ML IV (10:25)
[2024-12-10] MEDS: AZITHROMYCIN 500 MG in Normal Saline 250 ML 250 MG IVPB (10:26)
[2024-12-10 10:28] LABS: Lyme Ab w Rflx to Lyme Confirm Negative (Negative)
[2024-12-10 10:34] LABS: Magnesium 1.5 mg/dL (1.8-2.4)
[2024-12-10 12:04] LABS: SS-A/Ro, IgG 272.1 CU (<20.0); SS-B (La) Ab, IgG 14.5 CU (<20.0)
[2024-12-10 12:10] LABS: RNP Ab, IgG <6.0 CU (<20.0)
--- NOTE | 2024-12-10 14:05 | W.PM.PROGNOT ---
Date of Service Date of service: 12/10/24 Time of Service: 08:20 Assessment and Plan Assessment and plan (1) Sepsis: Status: Acute Assessment and plan: - Patient met criteria for sepsis on admission with blood cell count of 13.2, pulse 120, source of infection being community-acquired pneumonia - Started on Vanco, Zosyn and doxycycline in the emergency department, changed pip/tazo to cefepime with CKD - Will continue vancomycin and switch to cefepime as patient has CKD and combination of Vanco and Zosyn can lead to worsening kidney function especially in the setting of sepsis - MRSA swab negative, stopped vancomycin 12/05. Blood cultures negative. Added back azithro for atypicals (2) CAP (community acquired pneumonia): Status: Acute Assessment and plan: As above. sputum just growing melba Urine studies for atypicals pending (3) Acute hypoxemic respiratory failure: Status: Acute Assessment and plan: - Initially some improvement with treating pneumonia, but worsened 12/09 - Concern for component of CHF, did diurese with furosemide, but did not imrpove and echo 12/09 reassuring. - Appreciate pulmonology, sent out labs for inflammatory disease, started high dose steroids today. See pulm note. - CHRISTOPHER positive 1:320, with positive anti-SS ab as well as +RF so far though CCP negative. (4) Atrial fibrillation with RVR: Status: Acute Assessment and plan: - New diagnosis on admission. Now on apxiaban - tolerate pulse around 100 given acute illness, off rate control as had some soft BPs. (5) CKD (chronic kidney disease) stage 3, GFR 30-59 ml/min: Status: Chronic Assessment and plan: - Appears to be at baseline with a creatinine of 1.5 (baseline about 1.7) - Tolerated 40mg furosemide, given another dose 12/10 after d/w Dr. Lentz. - Follow BMP (6) GERD (gastroesophageal reflux disease): Status: Chronic Assessment and plan: - Continue home omeprazole, now on high dose steroids. (7) Anemia: Status: Chronic Assessment and plan: Hg has dropped from 8.6 to 7.0. Follow and transfuse at <7. Slowly decreasing, no bleeding evident. iron studies, b12 in AM as well. Subjective Subjective Patient reports: voiding w/o difficulty and shortness of breath; denies nausea, vomiting or fever Interval history since last seen: Events: Met with palliative, now DNR/DNI Seen by Pulmonology, starting high dose steroids Difficulty tolerating BiPAP ~1000ml u/o after 40mg furosemide He remains quite short of breath even at rest. Daughter Doretha concerned because he has gotten worse, more tired and SOB since admission despite therapy. He denies chest pain or other pain. Exam Narrative Exam Narrative: GEN: A&O, moderate resp distress at rest despite HFNC neck- Trachea midline, no jvd cv-ir/ir, no murmur lungs-bilat scattered crackle, some expirary wheeze,speaks in sentence fragments abd- soft, NT/ND ext: no cyanosis. Trace marixa ankle edema. Objective Last Vital Signs Temp 36.6 C 12/10/24 12:18 Pulse 126 H 12/10/24 13:00 Resp 22 12/10/24 13:00 BP 127/69 12/10/24 10:01 Pulse Ox 94 12/10/24 13:00 Laboratory Results - last 24 hr 12/08/24 12/09/24 12/09/24 05:35 05:35 09:44 WBC RBC Hgb Hct MCV MCH MCHC RDW Plt Count MPV Immature Gran % Neutrophils % Lymphocytes % Monocytes % Eosinophils % Basophils % Nucleated RBC % Absolute Neutrophils Absolute Lymphocytes Absolute Monocytes Absolute Eosinophils Absolute Basophils RBC Morphology Hypochromasia Sodium Potassium Chloride Carbon Dioxide Anion Gap BUN Creatinine Est GFR (CKD-EPI 2020) Glucose Calcium Magnesium Total Bilirubin AST ALT Alkaline Phosphatase Total Protein Albumin Rheumatoid Factor 14.3 H Cyclic Citrull Peptide <2.5 SS-A/Ro 52 IgG Ab 272.1 H SS-A/Ro 60 IgG Ab >1050.0 H SS-B/La IgG Antibody 14.5 VIBRATORY PILE [employer]IVER IgG Antibody <6.0 Anti-ds DNA IgG Ab <22.0 Lyme Disease Antibody Negative Add-On Test Request 12/10/24 12/10/24 05:25 10:12 WBC 19.62 H RBC 2.65 L Hgb 7.0 L* Hct 22.2 L MCV 84 MCH 26.4 L MCHC 31.5 L RDW 16.1 H Plt Count 302 MPV 8.5 Immature Gran % 1.0 Neutrophils % 84.5 Lymphocytes % 5.7 Monocytes % 7.7 Eosinophils % 1.0 Basophils % 0.1 Nucleated RBC % 0.3 Absolute Neutrophils 16.58 H Absolute Lymphocytes 1.12 L Absolute Monocytes 1.51 H Absolute Eosinophils 0.20 Absolute Basophils 0.02 RBC Morphology See Below Hypochromasia 2+ Sodium 137 Potassium 3.9 Chloride 104 Carbon Dioxide 22.4 Anion Gap 10.6 BUN 30 H Creatinine 1.5 H Est GFR (CKD-EPI 2020) 45.91 Glucose 95 Calcium 8.4 L Magnesium 1.5 L Total Bilirubin 0.7 AST 38 H ALT 18 Alkaline Phosphatase 155 H Total Protein 6.6 Albumin 1.8 L Rheumatoid Factor Cyclic Citrull Peptide SS-A/Ro 52 IgG Ab SS-A/Ro 60 IgG Ab SS-B/La IgG Antibody VIBRATORY PILE [employer]IVER IgG Antibody Anti-ds DNA IgG Ab Lyme Disease Antibody Add-On Test Request DONE Time Spent with Patient Time Spent with Patient: >50 minutes Time was spent: preparing to see the patient(eg.review tests), obtaining and/or reviewing separately otained hiistory, ordering medications,tests, procedures, referring, communicating with other health care clinician, indepentently interpreting results, counseling the patient and care coordination
[2024-12-10] MEDS: MAGNESIUM SULFATE 2 GM/50 ML BAG IV_INF (14:35)
[2024-12-10] MEDS: HYDROmorphone 2 MG/ML SYR 0.5 MG IVP (21:33)
[2024-12-11] VITALS (28 sets, daily range): BP systolic 88–111; BP diastolic 52–59; PULSE 76–115; RESP 15–42; TEMP 34–37; O2SAT 82–98
[2024-12-11] MEDS: Normal Saline Flush 10 ML SYR IVP ×3 (02:06→19:53)
[2024-12-11] MEDS: methylPREDNISolone SUCC 125 MG VIAL 250 MG IVP ×4 (02:07→20:22)
[2024-12-11] MEDS: CEFEPIME 2 GM in Normal Saline 100 ML IVPB ×2 (05:42→17:35)
[2024-12-11 06:57] LABS: HCT 24.9 % (40.0-50.0); HGB 7.8 g/dL (13.5-17.5); MCH 26.5 pg (27.0-33.0); MCHC 31.3 % (32.0-36.0); MCV 85 fL (80-95); MPV 8.9 fL (8.0-11.0); Platelet Count 340 10^3/uL (130-400); RBC 2.94 10^6/uL (4.36-5.78); RDW 16.1 % (11.8-14.1); RDW-SD 50.0 fL; WBC 18.26 10^3/uL (4.4-10.8)
--- NOTE | 2024-12-11 07:00 | DI.RAD_ITS ---
Exam(s) XR PORTABLE CHEST AP EXAM: XR PORTABLE CHEST AP CLINICAL HISTORY: pneumonia TECHNIQUE: 2D digital imaging was performed. COMPARISON: CR XR PORTABLE CHEST AP from 12/04/2024 FINDINGS: Exam is limited by semi-upright positioning and poor pulmonary inflation. A pacemaker overlies the left upper to mid lung field. LUNGS: There again noted to be severe bilateral infiltrates. There is a question interval worsening when compared with the previous exam with increasing densities seen in the left upper lobe. HEART: Mainly obscured by infiltrates. AORTA: Normal diameter. BONES: Unremarkable for age. Soft tissues: Unremarkable. IMPRESSION: Severe bilateral pneumonia with question of interval worsening when compared with previous exam versus differences in technique. DATA REPOSITORY: RADIATION DOSE DELIVERED:
[2024-12-11 07:15] LABS: Anion Gap 13.3 mmol/L (3-11); BUN 39 mg/dL (7-18); CO2 21.7 mmol/L (21.0-32.0); Calcium 9.0 mg/dL (8.5-10.1); Chloride 103 mmol/L (98-107); Estimated GFR 34.57 (mL/min/1.73m2); Glucose 137 mg/dL (74-106); Magnesium 2.2 mg/dL (1.8-2.4); Potassium 4.3 mmol/L (3.5-5.1); Sodium 138 mmol/L (136-145)
[2024-12-11 07:18] LABS: Iron 10 ug/dL (65-175); Total Iron Binding Capacity 145 ug/dL (250-450); Transferrin Sat 7 % (20-55)
[2024-12-11 07:46] LABS: Vitamin B12 1114 pg/mL (193-986)
--- NOTE | 2024-12-11 08:04 | W.PULMCC ---
General Date of Service Date of service: 12/11/24 Time of Service: 07:30 Reason for Admission to ICU: Respiratory failure Recommendations Pulmonary: Assessment: 1. Acute hypoxemic respiratory failure - ddx: ILD exacerbation vs infectious pneumonia. Less likely pulmonary edema, given lack of improvement with diuresis and unremarkable echo 2. 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 Leukocytosis - infectious cause vs stress/leukmoid reaction 4. Afib 5. CKD - Cr increased to 1.9, acute rise likely related to diuresis Recommendations: - continue methylpred 250 mg Q6H for suspected ILD exacerbation - continue empiric antibiotics (azithromycin, cefepime) - hold on any further diuresis - DNR/DNI. RR in the 18-22 range. Not tachycardic. Does not appear uncomfortable. Continue current course. Should his status significantly worsen, transitioning to comfort measures is reasonable. Family is in agreement with this plan. Palliative care services following - his overall prognosis remains guarded. Family updated at bedside Discussed with Dr. Diamond I&O: Intake & Output 12/08/24 12/09/24 12/10/24 12/11/24 23:59 23:59 23:59 23:59 Intake Total 690.069 / 690.069 790 / 790 661 / 661 Output Total 375 / 375 1740 / 1740 2125 / 2125 175 / 175 Balance 315.069 / 315.069 -950 / -950 -1464 / -1464 -155 / -155 Weight 79.5 kg 77.2 kg 73.2 kg Code Status: Resuscitation Status DNR/DNI Subjective Critical and life-threatening events over the past 24 hours: 84 year old admitted for sepsis, acute hypoxic respiratory failure, CAP and possible CHF. 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 TTE 12/09/24 reviewed: preserved EF 55-60%, RV normal size and function RSVP 46mmHg, moderate to severe TR, small pericardial effusion without tamponade Chest CT 12/07/24 reviewed - GGO's throughout, reticulation, traction bronchiectasis and honeycombing predominantly in the lower lobes concerning for underlying ILD process. 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 Prior TTE 08/22/2023 reviewed: preserved EF 65%, RV normal in size and function, RSVP 44mmHG, moderate TR, mild to moderate MR. Pace maker lead in right atrium COVID/FLU/RSV: negative blood cultures: negative Sputum 12/09: pending Oxygen requirements relatively stable over the past day. Currently on 60L, FiO2 90%. Has been alternating between AIRVO and NIV. He is more alert today. Cough has improved. Denied chest pain. ROS: 6 pt ROS negative except as above Exam Narrative Exam Narrative: General: fatigued, no acute distress Head: normocephalic ENT: no stridor, trachea midline CV: tachycardic, irregular rhythm Respiratory: no wheezing, basilar crackles, no rhonchi, no prolonged expiration GI: abd soft, non-tender, non-distended Skin: no rashes Extremities: trace edema Psych: normal affect Most Recent VS/Results Last Vital Signs Temp 35.9 C L 12/11/24 02:01 Pulse 84 12/11/24 02:01 Resp 15 12/11/24 05:50 BP 104/57 L 12/11/24 02:01 Pulse Ox 98 12/11/24 05:50 Laboratory Results - last 24 hr 12/08/24 12/09/24 12/09/24 05:35 05:35 09:44 WBC RBC Hgb Hct MCV MCH MCHC RDW Plt Count MPV Sodium Potassium Chloride Carbon Dioxide Anion Gap BUN Creatinine Est GFR (CKD-EPI 2020) Glucose Calcium Magnesium Iron TIBC Transferrin % Sat Vitamin B12 Rheumatoid Factor 14.3 H Cyclic Citrull Peptide <2.5 CHRISTOPHER Titer 1:320 Speckled CHRISTOPHER Titer 2 Not Applicable CHRISTOPHER Titer 3 Not Applicable CHRISTOPHER Interpretation Positive A SS-A/Ro 52 IgG Ab 272.1 H SS-A/Ro 60 IgG Ab >1050.0 H SS-B/La IgG Antibody 14.5 HARDBOARD PRESS OPERATOR IgG Antibody <6.0 Anti-ds DNA IgG Ab <22.0 Lyme Disease Antibody Negative Add-On Test Request 12/10/24 12/10/24 12/11/24 05:25 10:12 05:40 WBC 18.26 H RBC 2.94 L Hgb 7.8 L Hct 24.9 L MCV 85 MCH 26.5 L MCHC 31.3 L RDW 16.1 H Plt Count 340 MPV 8.9 Sodium 138 Potassium 4.3 Chloride 103 Carbon Dioxide 21.7 Anion Gap 13.3 H BUN 39 H Creatinine 1.9 H Est GFR (CKD-EPI 2020) 34.57 Glucose 137 H Calcium 9.0 Magnesium 1.5 L 2.2 Iron TIBC Transferrin % Sat Vitamin B12 1114 H Rheumatoid Factor Cyclic Citrull Peptide CHRISTOPHER Titer CHRISTOPHER Titer 2 CHRISTOPHER Titer 3 CHRISTOPHER Interpretation SS-A/Ro 52 IgG Ab SS-A/Ro 60 IgG Ab SS-B/La IgG Antibody HARDBOARD PRESS OPERATOR IgG Antibody Anti-ds DNA IgG Ab Lyme Disease Antibody Add-On Test Request DONE 12/11/24 05:52 WBC RBC Hgb Hct MCV MCH MCHC RDW Plt Count MPV Sodium Potassium Chloride Carbon Dioxide Anion Gap BUN Creatinine Est GFR (CKD-EPI 2020) Glucose Calcium Magnesium Iron 10 L TIBC 145 L Transferrin % Sat 7 L Vitamin B12 Rheumatoid Factor Cyclic Citrull Peptide CHRISTOPHER Titer CHRISTOPHER Titer 2 CHRISTOPHER Titer 3 CHRISTOPHER Interpretation SS-A/Ro 52 IgG Ab SS-A/Ro 60 IgG Ab SS-B/La IgG Antibody HARDBOARD PRESS OPERATOR IgG Antibody Anti-ds DNA IgG Ab Lyme Disease Antibody Add-On Test Request Time spent with patient Time spent in Critical Care: 37 Time spent in Critical care included: Coordination of care, Chart review, Documenting critically ill care, Time at immediate bedside, Discussing critically ill care with other medical staff and Discussing care with family members
[2024-12-11] MEDS: Magnesium Oxide 400 MG TAB 800 MG PO ×2 (08:32→19:53)
[2024-12-11] MEDS: Omeprazole 20 MG CAPCR PO (08:32)
[2024-12-11] MEDS: Apixaban 5 MG TAB PO (08:32)
[2024-12-11] MEDS: AZITHROMYCIN 500 MG in Normal Saline 250 ML 250 MG IVPB (10:28)
--- NOTE | 2024-12-11 12:42 | PGE_ITS ---
Date of Service Date of service: 12/11/24 Time of Service: 12:42 Assessment and Plan Assessment and plan (1) Sepsis: Status: Acute Assessment and plan: - Patient met criteria for sepsis on admission with blood cell count of 13.2, pulse 120, source of infection being community-acquired pneumonia - Started on Vanco, Zosyn and doxycycline in the emergency department, changed p ip/tazo to cefepime with CKD - MRSA swab negative, stopped vancomycin 12/05. Blood cultures negative. Added back azithro for atypicals. Lyme negative, rest of tick panel pending. - See below (2) CAP (community acquired pneumonia): Status: Acute Assessment and plan: As above. sputum just growing melba. Viral screens negative COVID/flu/RSV Urine studies for legionella negative, others pending. Unfortunately he hasn't responded well to agressive antibiotic therapy, see below (3) Acute hypoxemic respiratory failure: Status: Acute Assessment and plan: - Initially some improvement with treating pneumonia, but worsened 12/09 - Concern for component of CHF, did diurese with furosemide, but did not imrpove and echo 12/09 reassuring. - Appreciate pulmonology, sent out labs for inflammatory disease, started high dose steroids 12/10. See pulm note. - CHRISTOPHER positive 1:320, with very positive anti-SS ab as well as +RF so far though CCP negative. This pattern suggests SLE or Sjogrens. 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 - Call out to Rheum to discuss any additional testing or therapies, d/w Fellow Dr. 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 If he improves, they will see in follow up about residential immune suppression. They would consider transfer if he doesn't improve and he wants aggressive care. - Slight, but no dramatic improvement on high dose methyprednisolone so far. - Use CPAP as much as he can tolerate to let him rest, HFNC otherwise. (4) Atrial fibrillation with RVR: Status: Acute Assessment and plan: - New diagnosis on admission. Now on apxiaban - tolerate pulse around 100 given acute illness, off rate control as had some soft BPs. (5) CKD (chronic kidney disease) stage 3, GFR 30-59 ml/min: Status: Chronic Assessment and plan: - Baseline about 1.7, increased from 1.5 to 1.9/ 12/11 after two doses of furosemide, stop diuresis. - Follow BMP (6) GERD (gastroesophageal reflux disease): Status: Chronic Assessment and plan: - Continue home omeprazole, now on high dose steroids. (7) Anemia: Status: Chronic Assessment and plan: Hg has dropped from 8.6 to 7.6. Follow and transfuse at <7. No bleeding evid ent. iron is low, he may benefit from IV iron, though we try to avoid this in active infections. Will consider. (8) Goals of care, counseling/discussion: Status: Acute Assessment and plan: Palliative care consulted. Patient changed to DNR/DNI on 12/09. Considering ALUMINUM POLISHER, but decided to try treating possible autoimmune condition starting 12/10. If he is not responding by 12/12, would discuss option of comfort focus with him and his daughter. Subjective Subjective Patient reports: shortness of breath; denies diarrhea, nausea, vomiting or fever Interval history since last seen: Events: Started on high dose steroids 01/09 CPAP overnight, though still difficulty tolerating with dry mouth. He feels okay, denies pain. Looks a little better per daughter. He is taking some shakes with protein, he feels some hunger, but tires very easily. No bleeding. Exam Narrative Exam Narrative: GEN: A&O, initially mild, but after talking appears in moderate resp distress at rest despite HFNC neck- Trachea midline, no jvd cv-ir/ir, no murmur lungs-bilat scattered expirary wheeze. speaks in sentence fragments abd- soft, NT/ND ext: no cyanosis. Trace marixa ankle edema. Objective Last Vital Signs Temp 35.9 C L 12/11/24 02:01 Pulse 76 12/11/24 10:01 Resp 19 12/11/24 10:01 BP 95/56 L 12/11/24 10:01 Pulse Ox 94 12/11/24 10:01 Laboratory Results - last 24 hr 12/09/24 12/09/24 12/11/24 05:35 09:44 05:40 WBC 18.26 H RBC 2.94 L Hgb 7.8 L Hct 24.9 L MCV 85 MCH 26.5 L MCHC 31.3 L RDW 16.1 H Plt Count 340 MPV 8.9 Sodium 138 Potassium 4.3 Chloride 103 Carbon Dioxide 21.7 Anion Gap 13.3 H BUN 39 H Creatinine 1.9 H Est GFR (CKD-EPI 2020) 34.57 Glucose 137 H Calcium 9.0 Magnesium 2.2 Iron TIBC Transferrin % Sat Vitamin B12 1114 H CHRISTOPHER Titer 1:320 Speckled CHRISTOPHER Titer 2 Not Applicable CHRISTOPHER Titer 3 Not Applicable CHRISTOPHER Interpretation Positive A SS-A/Ro 52 IgG Ab 272.1 H SS-A/Ro 60 IgG Ab >1050.0 H SS-B/La IgG Antibody 14.5 RADIO INTERFERENCE SUPERVISOR IgG Antibody <6.0 Anti-ds DNA IgG Ab <22.0 12/11/24 05:52 WBC RBC Hgb Hct MCV MCH MCHC RDW Plt Count MPV Sodium Potassium Chloride Carbon Dioxide Anion Gap BUN Creatinine Est GFR (CKD-EPI 2020) Glucose Calcium Magnesium Iron 10 L TIBC 145 L Transferrin % Sat 7 L Vitamin B12 CHRISTOPHER Titer CHRISTOPHER Titer 2 CHRISTOPHER Titer 3 CHRISTOPHER Interpretation SS-A/Ro 52 IgG Ab SS-A/Ro 60 IgG Ab SS-B/La IgG Antibody RADIO INTERFERENCE SUPERVISOR IgG Antibody Anti-ds DNA IgG Ab Time Spent with Patient Time Spent with Patient: >50 minutes Time was spent: preparing to see the patient(eg.review tests), obtaining and/or reviewing separately otained hiistory, ordering medications,tests, procedures, referring, communicating with other health child care attendant school, indepentently interpreting results, counseling the patient and care coordination
--- NOTE | 2024-12-11 13:56 | PHA.REVIEW2 ---
Pharmacy Admission Review Admission Clinical Review Admission Pharmacy Review: Goals of care, counseling/discussion (Acute) Atrial fibrillation with RVR (Acute) Acute hypoxemic respiratory failure (Acute) Sepsis (Acute) Acute hypoxemic respiratory failure (Acute) CAP (community acquired pneumonia) (Acute) Sepsis (Acute) celecoxib (From Celebrex) Allergy (Severe, Verified 12/04/24 11:45) Swelling/Edema lisinopril Allergy (Severe, Verified 12/04/24 11:45) Swelling/Edema peanut Allergy (Intermediate, Verified 12/04/24 11:45) sneezes hydrochlorothiazide Adverse Reaction (Intermediate, Verified 12/04/24 11:45) Other (See Comment) morphine Adverse Reaction (Intermediate, Verified 12/10/24 23:07) Other (See Comment) Resuscitation Status DNR/DNI Height 5 ft 7 in Weight 73.2 kg Pharmacy Admission Review Renal Dosing Renal Dosing: BUN 39 mg/dL (7-18) H 12/11/24 05:40 Creatinine 1.9 mg/dL (0.70-1.30) H 12/11/24 05:40 Medications needing adjustments: Intervened (CrCl 30 mL/min, BUN increased from 30 and SCr increased from 1.5) List of meds needing interventions: Due to SCr > 1.5 and age > 80 years, recommended changing Eliquis from 5mg BID to 2.5mg BID. Provider agreed and order was changed. Will need to decrease cefepime dose if CrCl decreases below 30 mL/min Anticoagulation Anticoagulation: Hgb 7.8 g/dL (13.5-17.5) L 12/11/24 05:40 Hct 24.9 % (40.0-50.0) L 12/11/24 05:40 Plt Count 340 10^3/uL (130-400) 12/11/24 05:40 INR 1.3 (0.9-1.1) H 12/04/24 12:25 Creatinine 1.9 mg/dL (0.70-1.30) H 12/11/24 05:40 DVT Prophylaxis: Intervened (dose change - see renal dosing above) Medications: Apixaban (2.5mg BID for Afib) Opiate Usage Evaluate Pain Scale/Pains Meds: Reviewed (hydromorphone 0.5mg IVP q1h PRN - 0.5mg / 24hrs) Scheduled Bowel Reg ordered if on Opiates?: No (PRN Miralax) Relevant Labs Relevant Labs: ESR 71 mm/hr (0-20) H 12/08/24 05:35 Sodium 138 mmol/L (136-145) 12/11/24 05:40 Potassium 4.3 mmol/L (3.5-5.1) 12/11/24 05:40 Chloride 103 mmol/L (98-107) 12/11/24 05:40 Magnesium 2.2 mg/dL (1.8-2.4) 12/11/24 05:40 C-Reactive Protein 20.60 mg/dL (<or=0.5) H 12/08/24 05:35 Electrolytes, C-Reactive P, ESR: Reviewed Cardiac Review Cardiac Review: Troponin I 20 ng/L (<or=76) 12/04/24 15:27 NT-Pro-B Natriuret Pep 2392 pg/mL (<300) H 12/04/24 12:25 Blood Pressure 107/59 1201 Blood Pressure 95/56 1001 Blood Pressure 105/57 0801 Blood Pressure 102/52 0601 Blood Pressure 100/53 0505 Blood Pressure 88/57 0401 BP, HR, EF%: Reviewed (Ox 91, oxygen flow rate = 60) QTc Review QTc: Reviewed (374 from 12/04/24) IV to PO Switch IV Medications: Reviewed (azithromycin, cefepime, hydromorphone, lorazepam, methylprednisolone) Home Meds Home Med List reviewed: Reviewed Relevent Home Meds Not ordered & why?: amlodipine (low BP), vitamin B12, diclofenac gel (PRN), ibuprofen (PRN), multivitamin and Blink Gel Tears Current Meds Current Medication Order Review: Reviewed Pharmacy Antibiotic Review Relevant Labs: WBC 18.26 10^3/uL (4.4-10.8) H 12/11/24 05:40 Procalcitonin 0.13 ng/mL 12/08/24 05:35 Microbiology 12/09/24 14:15 Sputum Culture - Preliminary Sputum Evon albicans Gram Stain - Final Pharmacy Antibiotic Activity: C/S review and Reviewed, no change Comments: Patient is on cefepime (day 7) and azithromycin (day 4) for sepsis/CAP. WBC decreased from 19.62.
[2024-12-11] MEDS: Water,Injection,Bacteriostatic 30 ML VIAL IJ (14:21)
[2024-12-11 14:56] LABS: B. miyamotoi PCR Negative (Negative); Babesia divergens/MO-1 Negative (Negative); Ehrlichia muris eauclairensis Negative (Negative)
[2024-12-11] MEDS: HYDROmorphone 2 MG/ML SYR 0.5 MG IVP ×3 (16:19→22:04)
--- NOTE | 2024-12-11 17:40 | CMPROGNOTE_ITS ---
Date of service: 12/11/24 Time of Service: 17:40 Care Management Progress Note Progress Note Text Progress Note Text: Partha was lying in bed when CM met with him. He appeared tired and was not able to engage well in conversation. Per RN, clinically he is slightly improved today than yesterday. When asked how he was feeling today, Partha stated that he is not feeling well, and feels worse than yesterday. He asked for a mouth swab, which his RN was retrieving while CM sat with him. He is being treated at ICU level of care, on high flow O2, and does not appear comfortable. Per report, there was some discussion yesterday that Partha may transition to comfort care. Per MD, he was started on high dose steroids, and Partha's daughter is hopeful that this will help him improve. CM will continue to follow. Discharge Potential Discharge Needs: Consult Consult Services Needed: Palliative and Other (Rheumotology ) Anticipated Barriers to Discharge: Medical Status Patient/Family Education Needs: Review discharge instructions, discuss Ask Me Three Transportation: Private vehicle Plan: Partha's plan continues to be unclear and he has made slight improvement clinically, but does not feel better at this time. He has met with palliative care, and will consider comfort measures, if he does not improve. MD will continue to discuss this with Partha and his daughter, Doretha. CM will continue to follow. Social Determinants of Health Screening Social Determinants of health last assessed in clinic: 12/11/24 Will the Patient Participate in the Screening?: Yes Do you worry about having a steady place to live?: no Problems where you live: no known problems In the past 12 months, have you had to go without electric, gas, oil or water in your home?: no 1. Within the past 12 months, we worried whether our food would run out before we got money to buy more.: Don't know/refused 2. Within the past 12 months, the food we bought just didn't last and we didn't have money to get more.: Don't know/refused Has lack of transportation kept you from medical appointments or from doing things needed for daily living?: no Has anyone in your life made you feel unsafe or unsupported?: no How hard is it for you to pay for the very basics like food, housing, medical care, and heating? Would you say it is:: Not hard at all Do you want help finding or keeping work or a job?: I do not need or want help If for any reason you need help with day-to-day activities such as bathing, preparing meals, shopping, managing finances, etc., do you get the help you need?: I don?t need any help How often do you feel lonely or isolated from those around you?: Rarely Do you speak a language other than Yoruba at home?: No Does the patient want assistance with any of the above?: No Health Related Social Needs Health related social needs: feeling lonely/isolated (Z60.8) Health related social needs details: [place] lonely after in 2016, says he had to put her pictures away but lately has been feeling like he could take them back out again.
[2024-12-11] MEDS: Apixaban 2.5 MG TAB PO (19:53)
[2024-12-11 22:00] LABS: Scl 70 Antibodies, IgG <0.2 U; Sm (Smith) Ab, IgG <0.2 U
[2024-12-12] VITALS (21 sets, daily range): BP systolic 78–97; BP diastolic 47–57; PULSE 72–101; RESP 11–29; TEMP 36.2; O2SAT 87–95
[2024-12-12] MEDS: HYDROmorphone 2 MG/ML SYR 0.5 MG IVP ×3 (00:21→09:32)
[2024-12-12] MEDS: ACETAMINOPHEN 1,000 MG/100 ML BAG 400 MG IVPB (01:33)
[2024-12-12] MEDS: methylPREDNISolone SUCC 125 MG VIAL 250 MG IVP (01:34)
[2024-12-12] MEDS: Normal Saline Flush 10 ML SYR IVP ×4 (01:35→20:06)
[2024-12-12] MEDS: CEFEPIME 2 GM in Normal Saline 100 ML IVPB (05:17)
[2024-12-12 06:25] LABS: HCT 23.5 % (40.0-50.0); HGB 7.5 g/dL (13.5-17.5); MCH 26.8 pg (27.0-33.0); MCHC 31.9 % (32.0-36.0); MCV 84 fL (80-95); MPV 9.1 fL (8.0-11.0); Platelet Count 339 10^3/uL (130-400); RBC 2.80 10^6/uL (4.36-5.78); RDW 16.2 % (11.8-14.1); RDW-SD 50.2 fL; WBC 24.79 10^3/uL (4.4-10.8)
[2024-12-12] MEDS: Normal Saline 500 ML 250 ML IV (06:50)
[2024-12-12 06:51] LABS: ALT 47 U/L (16-63); AST 85 U/L (15-37); Albumin 2.0 g/dL (3.4-5.0); Alkaline Phosphatase 172 U/L (46-116); Anion Gap 13.4 mmol/L (3-11); BUN 55 mg/dL (7-18); Bilirubin, Total 0.6 mg/dL (0.2-1.0); CO2 21.6 mmol/L (21.0-32.0); Calcium 9.3 mg/dL (8.5-10.1); Chloride 105 mmol/L (98-107); Estimated GFR 28.99 (mL/min/1.73m2); Glucose 132 mg/dL (74-106); Potassium 4.5 mmol/L (3.5-5.1); Sodium 140 mmol/L (136-145); Total Protein 7.3 g/dL (6.4-8.2)
--- NOTE | 2024-12-12 07:45 | CMPROGNOTE_ITS ---
Date of service: 12/12/24 Time of Service: 14:09 Care Management Progress Note Progress Note Text Progress Note Text: Partha was lying in bed and sleeping when CM met with him. He was accompanied by his daughter Doretha, and her cousin was coming to visit later today. 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 Per report, he appears more comfortable. Doretha will make final arrangements will [facility]. CM will continue to follow. 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 Palliative care will follow. Final arrangements will be made with [facility] home. CM will continue to follow. Social Determinants of Health Screening Social Determinants of health last assessed in clinic: 12/12/24 Will the Patient Participate in the Screening?: Yes Do you worry about having a steady place to live?: no Problems where you live: no known problems In the past 12 months, have you had to go without electric, gas, oil or water in your home?: no 1. Within the past 12 months, we worried whether our food would run out before we got money to buy more.: Don't know/refused 2. Within the past 12 months, the food we bought just didn't last and we didn't have money to get more.: Don't know/refused Has lack of transportation kept you from medical appointments or from doing things needed for daily living?: no Has anyone in your life made you feel unsafe or unsupported?: no How hard is it for you to pay for the very basics like food, housing, medical care, and heating? Would you say it is:: Not hard at all Do you want help finding or keeping work or a job?: I do not need or want help If for any reason you need help with day-to-day activities such as bathing, preparing meals, shopping, managing finances, etc., do you get the help you need?: I don?t need any help How often do you feel lonely or isolated from those around you?: Rarely Do you speak a language other than [place] at home?: No Does the patient want assistance with any of the above?: No Health Related Social Needs Health related social needs: feeling lonely/isolated (Z60.8) Health related social needs details: [place] lonely after in 2016, says he had to put her pictures away but lately has been feeling like he could take them back out again.
--- NOTE | 2024-12-12 09:03 | W.PULMCC ---
Documented by User: MARISELA Barraza 12/12/24 09:52 General Date of Service Date of service: 12/12/24 Time of Service: 07:30 Recommendations Pulmonary: Assessment: 1. Acute hypoxemic respiratory failure - ddx: ILD exacerbation vs infectious pneumonia. Less likely pulmonary edema, given lack of improvement with diuresis and unremarkable echo 2. Interstitial lung disease - has some underlying fibrotic lung disease - CHRISTOPHER, anti-RO52&60 abs were very high, suggestive of underlying connective tissues disease (Sjorgrens syndrome vs lupus) [place] [facility] [place] by Dr. Diamond, no further immunosuppressive agent is recommended at this time. 3. Leukocytosis - infectious cause vs stress/leukmoid reaction - bump due to pulse steroids 4. Afib 5. CKD - Cr increased to 2.2, continued rise Recommendations: - continue methylpred 250 mg Q6H for suspected ILD exacerbation - continue empiric antibiotics (azithromycin, cefepime) - hold on any further diuresis - DNR/DNI. Increasing oxygen demands despite 24 hours of steroids. Transitioning to comfort measures is reasonable given overall prognosis. Family is at bedside Palliative care services following Discussed with Dr. Diamond and Dr. Lentz I&O: Intake & Output 12/09/24 12/10/24 12/11/24 12/12/24 23:59 23:59 23:59 23:59 Intake Total 790 / 790 661 / 661 505 / 505 120 / 120 Output Total 1740 / 1740 2125 / 2125 500 / 500 100 / 100 Balance -950 / -950 -1464 / -1464 5 / 20 / 20 Weight 175 lb 4.28 oz 170 lb 3.15 oz 161 lb 6.054 oz 166 lb 7.184 oz Code Status: Resuscitation Status DNR/DNI Subjective Critical and life-threatening events over the past 24 hours: Critical and life-threatening events over the past 24 hours: 84 year old admitted for sepsis, acute hypoxic respiratory failure, CAP and possible CHF. 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 CXR 12/11: worsening pneumonia TTE 12/09/24 reviewed: preserved EF 55-60%, RV normal size and function RSVP 46mmHg, moderate to severe TR, small pericardial effusion without tamponade Chest CT 12/07/24 reviewed - GGO's throughout, reticulation, traction bronchiectasis and honeycombing predominantly in the lower lobes concerning for underlying ILD process. 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 Prior TTE 08/22/2023 reviewed: preserved EF 65%, RV normal in size and function, RSVP 44mmHG, moderate TR, mild to moderate MR. Pace maker lead in right atrium COVID/FLU/RSV: negative blood cultures: negative Sputum 12/09: pending Oxygen requirements have increased over the past day. Now on CPAP 8, 80%. More somnolent however dilaudid now being more consistency pushed since 4pm yesterday is probably contributing. Not verbally responding or opening eyes. Bump in creatinine and WBC. WBC secondary to pulse steroids. Most Recent VS/Results Last Vital Signs Temp 97.2 F L 12/12/24 02:01 Pulse 92 H 12/12/24 08:04 Resp 18 12/12/24 08:04 BP 92/54 L 12/12/24 08:00 Pulse Ox 94 12/12/24 08:04 Laboratory Results - last 24 hr 12/07/24 12/08/24 12/08/24 11:56 05:35 14:50 WBC RBC Hgb Hct MCV MCH MCHC RDW Plt Count MPV Sodium Potassium Chloride Carbon Dioxide Anion Gap BUN Creatinine Est GFR (CKD-EPI 2020) Glucose Calcium Total Bilirubin AST ALT Alkaline Phosphatase Total Protein Albumin Sm (Hernandez) Antibody Scl-70 IgG Ab B. divergens/MO-1 PCR Negative Babesia duncani (PCR) Negative Babesia microti DNA PCR Negative E.chaffeensis DNA (PCR) Negative E.ewingii/canis DNA PCR Negative E.muris eauclairensis (PCR) Negative Legionella Source sputum Legionella DNA (PCR) Negative M. pneumoniae Source sputum M. pneumoniae (PCR) Negative A. phagocytophilum (PCR) Negative Blood B. miyamotoi (PCR) Negative 12/09/24 12/12/24 05:35 05:30 WBC 24.79 H RBC 2.80 L Hgb 7.5 L Hct 23.5 L MCV 84 MCH 26.8 L MCHC 31.9 L RDW 16.2 H Plt Count 339 MPV 9.1 Sodium 140 Potassium 4.5 Chloride 105 Carbon Dioxide 21.6 Anion Gap 13.4 H BUN 55 H Creatinine 2.2 H Est GFR (CKD-EPI 2020) 28.99 Glucose 132 H Calcium 9.3 Total Bilirubin 0.6 AST 85 H ALT 47 Alkaline Phosphatase 172 H Total Protein 7.3 Albumin 2.0 L Sm (Hernandez) Antibody <0.2 Scl-70 IgG Ab <0.2 B. divergens/MO-1 PCR Babesia duncani (PCR) Babesia microti DNA PCR E.chaffeensis DNA (PCR) E.ewingii/canis DNA PCR E.muris eauclairensis (PCR) Legionella Source Legionella DNA (PCR) M. pneumoniae Source M. pneumoniae (PCR) A. phagocytophilum (PCR) Blood B. miyamotoi (PCR) Time spent with patient Time spent in Critical Care: 45 Time spent in Critical care included: Coordination of care, Chart review, Documenting critically ill care, Time at immediate bedside, Discussing critically ill care with other medical staff and Discussing care with family members Documented by User: Osvaldo Lentz MD 12/12/24 10:29 Exam Narrative Exam Narrative: General: somnolent, no acute distress Head: normocephalic ENT: no stridor, trachea midline CV: normal rate, regular rhythm Respiratory: no wheezing, no crackles, no rhonchi, no prolonged expiration GI: abd soft, non-tender, non-distended Skin: no rashes Extremities: no edema Psych: normal affect
[2024-12-12] MEDS: HYDROmorphone 2 MG/ML SYR 1 MG IVP (09:45)
[2024-12-12] MEDS: Midazolam 2 MG/2 ML VIAL 1 MG IVP (10:12)
--- NOTE | 2024-12-12 10:35 | W.PM.PROGNOT ---
Date of Service Date of service: 12/12/24 Time of Service: 10:35 Assessment and Plan Assessment and plan (1) Comfort measures only status: Status: Acute Assessment and plan: Mr. Mantilla has not improved from a respiratory standpoint after 48hours on high dose steroids He is having worsening renal failure, reflecting multiorgan dysfunction Removing CPAP and can use O2 for comfort via NC Focus on comfort, on hydromorphone PRN, consider infusion vs SQ pump along with other comfort meds (2) Sjogren syndrome with lung involvement: Status: Acute Assessment and plan: Rheumatology and Dr. Lentz both agree with this being the underlying condition. Unfortunately he is worsening despite steroids. Transfer to with additional immune suppression is an options, but given poor prognosis even with aggressive therapy, this is not c/w his goals of care. 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 Subjective Subjective Patient reports: denies diarrhea, vomiting or fever Interval history since last seen: Events: Case reviewed with Rheumatology Given 250ml NS early AM 12/12 for hypotension, oliguria He is not vocal this morning, but is squeezing his daughter's hand. He looks worse today per daughter. He has been talking about dying. He didn't want to with a mask on. Exam Narrative Exam Narrative: GEN: On CPAP, not responding to questions cv-ir/ir, no murmur lungs-breathing on CPAP, no rales/wheeze anteriorly abd- soft,ND ext: no cyanosis. 1+ marixa ankle edema. Objective Last Vital Signs Temp 36.2 C L 12/12/24 02:01 Pulse 92 H 12/12/24 08:04 Resp 18 12/12/24 08:04 BP 92/54 L 12/12/24 08:00 Pulse Ox 94 12/12/24 08:04 Laboratory Results - last 24 hr 12/07/24 12/08/24 12/08/24 11:56 05:35 14:50 WBC RBC Hgb Hct MCV MCH MCHC RDW Plt Count MPV Sodium Potassium Chloride Carbon Dioxide Anion Gap BUN Creatinine Est GFR (CKD-EPI 2020) Glucose Calcium Total Bilirubin AST ALT Alkaline Phosphatase Total Protein Albumin Sm (Hernandez) Antibody Scl-70 IgG Ab B. divergens/MO-1 PCR Negative Babesia duncani (PCR) Negative Babesia microti DNA PCR Negative E.chaffeensis DNA (PCR) Negative E.ewingii/canis DNA PCR Negative E.muris eauclairensis (PCR) Negative Legionella Source sputum Legionella DNA (PCR) Negative M. pneumoniae Source sputum M. pneumoniae (PCR) Negative A. phagocytophilum (PCR) Negative Blood B. miyamotoi (PCR) Negative 12/09/24 12/12/24 05:35 05:30 WBC 24.79 H RBC 2.80 L Hgb 7.5 L Hct 23.5 L MCV 84 MCH 26.8 L MCHC 31.9 L RDW 16.2 H Plt Count 339 MPV 9.1 Sodium 140 Potassium 4.5 Chloride 105 Carbon Dioxide 21.6 Anion Gap 13.4 H BUN 55 H Creatinine 2.2 H Est GFR (CKD-EPI 2020) 28.99 Glucose 132 H Calcium 9.3 Total Bilirubin 0.6 AST 85 H ALT 47 Alkaline Phosphatase 172 H Total Protein 7.3 Albumin 2.0 L Sm (Hernandez) Antibody <0.2 Scl-70 IgG Ab <0.2 B. divergens/MO-1 PCR Babesia duncani (PCR) Babesia microti DNA PCR E.chaffeensis DNA (PCR) E.ewingii/canis DNA PCR E.muris eauclairensis (PCR) Legionella Source Legionella DNA (PCR) M. pneumoniae Source M. pneumoniae (PCR) A. phagocytophilum (PCR) Blood B. miyamotoi (PCR) Time Spent with Patient Time Spent with Patient: 35-49 minutes Time was spent: preparing to see the patient(eg.review tests), obtaining and/or reviewing separately otained hiistory, ordering medications,tests, procedures, referring, communicating with other health child care associate teacher, indepentently interpreting results, counseling the patient and care coordination
--- NOTE | 2024-12-12 13:41 | CHAPLAIN ---
I have checked in a few times today with Partha' daughter, Doretha. Partha is receiving comfort measures today and is not responsive. This morning Doretha was distraught as Partha appeared to be uncomfortable and in pain. Pain meds were adjusted has he has seemed more relaxed since then. Doretha plans to stay with Partha today. Her cousin is traveling over to be with Doretha and should be here around 2:30 pm. Doretha shared some family history telling me about her parents working at [employer], where she works now as well. 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 He took care of his for a few years at home after she was diagnosed with Alzhiemer's disease. She was at the [facility]] for four months before she .
--- NOTE | 2024-12-12 20:37 | EXPE_ITS ---
Date of service: 12/12/24 Time of Service: 20:57 Discharge Plan Disposition Patient Disposition: Discharge Details Reason For Visit: Sepsis, PNA, Hypoxic respiratory failure Admit Date/Time: 12/04/24 13:49 Admit Provider: Norman Allison Attending Provider: Norman Allison Primary Care Provider: Nanci Sandhu Hospital Course Hospital Course: 220 Partha Mantilla is an 84 year old man presenting December 04 with shortness of breath, found to be in respiratory failure with SpO2 70% in the field.? He was admitted for sepsis secondary to pneumonia with acute hypoxemic respiratory failure requiring ICU.? He was also in afib with RVR, responding well to metoprolol.? He remains hospitalized for persistent new respiratory failure requiring HFNC and CPAP Dec 04 CXR: GGO?s Persistent leukocytosis > 18 Anemia hgb 7?s - 8?s TASHI improving Cr 2.0->1.9->1.6 Monday echo.? Dec 07 CT: extensive interstitial disease.? ?moderate pericardial effusion?? Pulm consult: Recommendations Pulmonary: Osvaldo Lentz MD Assessment: 1. Acute hypoxemic respiratory failure - ddx: ILD exacerbation vs infectious pneumonia. Less likely pulmonary edema, given lack of improvement with diuresis and unremarkable echo 2. 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 Leukocytosis - infectious cause vs stress/leukmoid reaction 4. Afib 5. CKD - Cr increased to 1.9, acute rise likely related to diuresis Recommendations: - continue methylpred 250 mg Q6H for suspected ILD exacerbation - continue empiric antibiotics (azithromycin, cefepime) - hold on any further diuresis - DNR/DNI. RR in the 18-22 range. Not tachycardic. Does not appear uncomfortable. Continue current course. Should his status significantly worsen, transitioning to comfort measures is reasonable. Family is in agreement with this plan. Palliative care services following. - his overall prognosis remains guarded. Family updated at bedside Dec 07 Legionella PCR negative. 12/12/2024: Patient was switched to comfort measures during the day with continued deterioration and family's wishes to keep him comfortable. The patient at 20:27 on this date and pronounced at 20:32. Discharge Data Cause of : Sepsis due to pneumonia Discharge Date/Time-TO BE ENTERED AT DEPARTURE: 12/12/24 20:35 Discharge Sum: Prov Provider Primary care physician: Nanci Kramer Admitting clinician: Norman Allison Attending physician on admission: Norman Allison Consults: 12/07/24 15:53 Palliative Care Consult [CONS] Routine Consultation Status:: Follow-up needed Clarification:: Manage/follow per spec. Reason for consult:: Patient and nurse discussed the benefit of palliative care in the context of multiple health issues for clarifying care goals and optimizing quality of life. Patient requested a palliative consult. 12/11/2024 07;30 Pulmonary consultation, Osvaldo Lentz MD See recommendations under hospital course. 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 (2) Sjogren syndrome with lung involvement: Contributing factors: Diagnostic for ongoing during acute treatment. Discharge Sum: Summary Date and Time Admission Date: 12/04/24 Date of : 12/12/24 Time of : 20:27 Summary Details: See hospital course with review of consultation. Patient on comfort measures only on the last day of this hospital stay. He had sepsis with hypoxic respiratory failure secondary to pneumonia. He at 20:27 and was pronounced at 20:32 Additional Data Confirmation of as documented by pronouncing clinician: no pulse, no respirations and no heart sounds Family: at bedside and contacted Attending/PCP notified?: Yes Attending Physician: Sanya Azevedo Was code activated?: No Autopsy requested?: No odd shoe examiner notified?: No Organ bank notified?: Yes Advance directives: Yes Hospice patient?: No
[2025-01-02 23:10] LABS: Anti-Jo-1 Ab <20 Units (<20); Anti-Ku Ab Negative (Negative); Anti-MDA-5 Ab (CADM-140) <20 Units (<20); Anti-NXP-2 (P140) Ab <20 Units (<20); Anti-PM/Scl-100 Ab <20 Units (<20); Anti-SAE1 Ab, IgG <20 Units (<20); Anti-SS-A 52kD Ab, IgG 140 Units (<20); Anti-TIF-1gamma Ab <20 Units (<20); Anti-U2 RNP Ab Negative (Negative); Anti-U3 RNP (Fibrillarin) Negative (Negative)
== END 2024-12-12 20:35 | disposition expired | DRG 871 ==
LOC: ER 14:22 → ICU 15:50
PROVIDERS: Family Medicine; Hospitalist; Physician Assistant Surgical; Admitting Provider Family Medicine; Emergency Provider Student in an Organized Health Care Education/Training Program; PCP Nurse Practitioner Adult Health; Responsible Provider Family Medicine; Visit Provider Family Medicine
DX: A41.9 Sepsis, unspecified organism (principal); J18.9 Pneumonia, unspecified organism; J96.01 Acute respiratory failure with hypoxia; N17.9 Acute kidney failure, unspecified; I31.39 Other pericardial effusion (noninflammatory); M35.02 Sjogren syndrome with lung involvement; I48.91 Unspecified atrial fibrillation; N18.32 Chronic kidney disease, stage 3b; K21.9 Gastro-esophageal reflux disease without esophagitis; D50.9 Iron deficiency anemia, unspecified; Z95.0 Presence of cardiac pacemaker; I08.1 Rheumatic disorders of both mitral and tricuspid valves; E83.42 Hypomagnesemia; J84.10 Pulmonary fibrosis, unspecified; D72.829 Elevated white blood cell count, unspecified; Z66 Do not resuscitate; Z51.5 Encounter for palliative care
CPT/HCPCS: 00123; 36415; 71250; 80048; 80053; 82805; 83516; 83520; 84145; 85027; 85652; 86200; 86235; 87040; 87449; 87637; 87641; 87798; 87801; 93005; 94640; 94669; 94761; 96365; 99291; J1650; 71045; 80202; 82270; 82607; 83540; 83550; 83735; 83880; 84484; 85025; 85610; 85730; 86038; 86140; 86225; 86431; 86618; 87070; 87205; 87581; 93010; 93306; 94660; 94667; 94668; 94760; 99223; 99231; 99232; 99233; J0131; J0456; J0692; J1171; J1938; J2060; J2250; J2270; J2543; J2919; J3373; J3475; J7620

== ENCOUNTER → 2024-12-09 08:57 | Outpatient (BNVA) | payer MEDICARE, SELFPAY | PROVIDERS: PCP Nurse Practitioner Adult Health; Referring Provider Nurse Practitioner Adult Health; Visit Provider Internal Medicine Pulmonary Disease ==